=== PATIENT | male | born 1960 | race Caucasian/White ===

== ENCOUNTER → 2016-04-20 | Outpatient (CLI) | payer OTHER, BC ==
[~2016-04-20] MED LIST: CRFL PO; CYAN3INJ IM; DEXL60CA4 PO; FINA5TAB PO; FRRS300 PO; HYDR1TAB2 PO; LEVO100T PO; LISI-729 PO; LYR50 PO; MYCO500T4 PO; PREG100C PO; RANI300C PO; SILO8CAP PO
[2016-04-20 16:39] LABS: BASO % 0.4 %; BASO ABS # 0.03 K/uL (0-0.2); COMPLETE YES; EOS % 0.9 %; HEMATOCRIT 45.9 % (42-52); IG% 0.3 %; LYMPH % 13.1 %; LYMPH ABS # 0.91 K/uL (1.2-3.4); MEAN CELL VOLUME 86.3 fL (80-100); MEAN CORPUSCULAR HEMOGLOBIN 29.1 pg (25-34); MEAN CORPUSCULAR HGB CONC 33.8 g/dl (32-36); MEAN PLATELET VOLUME 10.3 fL (7.4-10.4); MONO % 18.7 %; NEUT % 66.6 %; PLATELET COUNT 212 K/uL (130-400); RED BLOOD COUNT 5.32 M/uL (4.7-6.1); WHITE BLOOD COUNT 6.95 K/uL (4.8-10.8)
[2016-04-20 16:51] LABS: ALT/SGPT 50 U/L (12-78); BLOOD UREA NITROGEN 12 mg/dl (7-18); BUN/CREATININE RATIO 9.2 (10-20); CALCIUM 8.7 mg/dl (8.5-10.1); CARBON DIOXIDE 24 mmol/L (21-32); CHLORIDE 102 mmol/L (98-107); CHOLESTEROL 178 mg/dl (0-200); GLUCOSE 91 mg/dl (70-99); POTASSIUM 3.8 mmol/L (3.5-5.1); SODIUM 138 mmol/L (136-145); TRIGLYCERIDES 111 mg/dl (0-150); VERY LOW DENSITY LIPOPROT CALC 22 mg/dl
[2016-04-20 17:02] LABS: % FREE PSA 14.5 %; ALB/GLOB RATIO 1.1 (0.9-2); ALKALINE PHOSPHATASE 107 U/L (45-117); AST/SGOT 35 U/L (15-37); CHOLESTEROL/HDL RATIO 3.6; FREE PSA 0.86 ng/ml; HDL CHOLESTEROL 49 mg/dl; LDL CHOLESTEROL CALCULATED 107 mg/dl; THYROID STIMULATING HORMONE 0.774 uIu/ml (0.300-4.500)
== END | disposition home or self-care (01) ==
LOC: C.LAB1850 15:23
PROVIDERS: ATTEND Internal Medicine Geriatric Medicine
DX: R97.20 Elevated prostate specific antigen [PSA] (principal); Z86.79 Personal history of other diseases of the circulatory system; M34.9 Systemic sclerosis, unspecified; K21.9 Gastro-esophageal reflux disease without esophagitis; I10 Essential (primary) hypertension; D64.9 Anemia, unspecified; K20.9 Esophagitis, unspecified; M60.9 Myositis, unspecified; E03.9 Hypothyroidism, unspecified

== ENCOUNTER → 2017-02-11 | Outpatient (CLI) | payer OTHER, BC ==
--- NOTE | 2017-02-11 16:06 | ECHOCARDIOGRAM REPORT ---
*NOTICE TO RECEIVING CONSTITUTION PARTY AGENCY This information is strictly Confidential and protected under [place] law. [place] law prohibits you from making any further disclosure of this information unless further disclosure is expressly permitted by the written consent of the person to whom it pertains or is authorized by law. A general authorization for the release of medical or other information is not sufficient for this purpose. Hospital accepts no responsibility if the information is made available to any other person, INCLUDING THE PATIENT. Interpretation Summary * Name: JULIA BILLINGSLEY Study Date: 02/11/2017 01:14 PM BP: 137/89 mmHg * Patient Location: [facility] HR: 77 * : 1960 (M/d/yyyy) Gender: Male Height: 74 in * Age: 56 yrs Ethnicity: CA Weight: 195 lb * Ordering Physician: JULI MARTIN MD * Performed By: Yanely Butts RCS * * Reason For Study: SOB * BSA: 2.1 m2 * -- Conclusions -- * 1. Normal left ventricular size and systolic function. EF 60-65%. No regional wall motion abnormalities. Severe left ventricular hypertrophy of the anteroseptal base. Otherwise, mild left ventricular hypertrophy. Tissue Doppler suggests elevated left atrial pressure. * 2. The left atrium is moderately dilated. * 3. The right atrium is mildly dilated. * 4. Bioprosthetic aortic valve with acceptable transvalvular gradients/velocities. Trace aortic transvalvular leak. * 5. There is mild mitral regurgitation. * 6. Mildly dilated ascending aorta. * 7. Normal estimated right ventricular systolic pressure; 24mmHg. * 8. Rhythm appears to be atrial flutter. * 9. Similar findings compared to prior study on 03/18/2011. Procedure Details * A complete two-dimensional transthoracic echocardiogram was performed (2D, M-mode, Doppler and color flow Doppler). Left Ventricle * Normal left ventricular size and systolic function. EF 60-65%. No regional wall motion abnormalities. Severe left ventricular hypertrophy of the anteroseptal base. Otherwise, mild left ventricular hypertrophy. Right Ventricle * The right ventricle is normal in size and function. Atria * The left atrium is moderately dilated. * The right atrium is mildly dilated. * There is no evidence of atrial septal defect, but resolution does not allow assessment for a patent foramen ovale. Mitral Valve * There is mild mitral annular calcification. * The mitral valve leaflets appear thickened, but open well. * There is no mitral valve stenosis. * There is mild mitral regurgitation. Tricuspid Valve * The tricuspid valve is not well visualized, but is grossly normal. * There is no tricuspid stenosis. * There is mild tricuspid regurgitation. Aortic Valve * Bioprosthetic aortic valve with acceptable transvalvular gradients/velocities. Trace aortic transvalvular leak. Pulmonic Valve * The pulmonic valve is not well seen, but is grossly normal. * There is no pulmonic valvular stenosis. * Mild pulmonic valvular regurgitation. Great Vessels * The aortic root is normal size. * Mildly dilated ascending aorta. * Aortic arch of normal dimension. Pericardium/Pleural * There is no pericardial effusion. Great Vessels * Normal inferior vena cava size and collapsability with sniff indicates a normal right atrial pressure of 3 mmHg MMode 2D Measurements and Calculations IVSd 2.0 cm IVSs 2.7 cm LVIDd 3.8 cm LVIDs 2.4 cm LVPWd 1.3 cm LVPWs 2.1 cm IVS/LVPW 1.5 FS 37.6 % EDV(Teich) 63.6 ml ESV(Teich) 20.1 ml EF(Teich) 68.4 % EDV(cubed) 56.7 ml ESV(cubed) 13.8 ml EF(cubed) 75.7 % % IVS thick 35.1 % % LVPW thick 61.1 % LV mass(C)d 256.1 grams LV mass(C)dI 119.1 grams/m\S\2 LV mass(C)s 298.6 grams LV mass(C)sI 138.9 grams/m\S\2 SV(Teich) 43.5 ml SI(Teich) 20.2 ml/m\S\2 SV(cubed) 42.9 ml SI(cubed) 20.0 ml/m\S\2 Ao root diam 3.9 cm Ao root area 11.7 cm\S\2 ACS 0.55 cm LA dimension 4.9 cm asc Aorta Diam 4.2 cm LA/Ao 1.3 LVOT diam 2.0 cm LVOT area 3.0 cm\S\2 LVAd ap4 37.6 cm\S\2 LVLd ap4 8.7 cm EDV(MOD-sp4) 133.3 ml EDV(sp4-el) 138.1 ml LVAs ap4 21.8 cm\S\2 LVLs ap4 7.9 cm ESV(MOD-sp4) 49.6 ml ESV(sp4-el) 51.0 ml EF(MOD-sp4) 62.8 % EF(sp4-el) 63.0 % LVAd ap2 33.6 cm\S\2 LVLd ap2 8.6 cm EDV(MOD-sp2) 108.5 ml EDV(sp2-el) 110.9 ml LVAs ap2 19.5 cm\S\2 LVLs ap2 8.1 cm ESV(MOD-sp2) 39.4 ml ESV(sp2-el) 39.8 ml EF(MOD-sp2) 63.6 % EF(sp2-el) 64.1 % LVLd %diff -0.52 % EDV(MOD-bp) 120.0 ml LVLs %diff 2.2 % ESV(MOD-bp) 44.7 ml EF(MOD-bp) 62.7 % SV(MOD-sp4) 83.7 ml SI(MOD-sp4) 38.9 ml/m\S\2 SV(MOD-sp2) 69.0 ml SI(MOD-sp2) 32.1 ml/m\S\2 SV(MOD-bp) 75.3 ml SI(MOD-bp) 35.0 ml/m\S\2 SV(sp4-el) 87.0 ml SI(sp4-el) 40.5 ml/m\S\2 SV(sp2-el) 71.1 ml SI(sp2-el) 33.1 ml/m\S\2 Doppler Measurements and Calculations MV E max yvette 92.9 cm/sec MV A max yvette 67.9 cm/sec MV E/A 1.4 MV dec time 0.21 sec Ao V2 max 233.8 cm/sec Ao max PG 21.9 mmHg Ao max PG (full) 17.9 mmHg Ao V2 mean 157.8 cm/sec Ao mean PG 11.4 mmHg Ao V2 VTI 50.4 cm TIM(V,A) 1.3 cm\S\2 TIM(V,D) 1.3 cm\S\2 LV V1 max PG 4.0 mmHg LV V1 max 99.5 cm/sec SV(Ao) 589.2 ml SI(Ao) 274.1 ml/m\S\2 PA V2 max 62.7 cm/sec PA max PG 1.6 mmHg PI end-d yvette 67.7 cm/sec TR max yvette 230.6 cm/sec RVSP(TR) 24.3 mmHg RAP systole 3.0 mmHg
--- NOTE | 2017-02-17 16:22 | PULMONARY FUNCTION TEST ---
CLINICAL DATA: A 56-year-old male, height 74 inches and weighs [address] Ortiz for evaluation of shortness of breath. 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 Spirometry pre-bronchodilator and DLCO were performed. FINDINGS: Pre-bronchodilator spirometry is within normal limits. FVC is 87% of predicted. FEV1 is 90% of predicted. [id number] was 118% of predicted. DLCO was normal at 100% of predicted. IMPRESSION: Normal spirometry and normal diffusion capacity (DLCO). MTDD
== END | disposition home or self-care (01) ==
LOC: C.CPL 12:32
PROVIDERS: ATTEND Internal Medicine
DX: M34.9 Systemic sclerosis, unspecified (principal)

== ENCOUNTER → 2017-06-24 | Outpatient (CLI) | payer OTHER, BC ==
[~2017-06-24] MED LIST changes: +GADAVIST IV PRN
--- NOTE | 2017-06-24 10:04 | DIAGNOSTIC IMAGING REPORT ---
PROSTATE MRI COMBO CLINICAL HISTORY: 57 years-old Male presenting with R97.20 Elevated prostate specific antigen (PSA)N40.1 BPH with obstruction. TECHNIQUE: Multisequence, multiplanar MR imaging of the prostate was performed before and after the administration of intravenous contrast. Additional postprocessing was performed on a separate [employer] workstation by the radiologist for 3-D volumetric segmentation of the prostate and contouring of region(s) of interest (ELISA) for targeting. IV contrast: 9 cc Gadavist. COMPARISON: None. FINDINGS: Prostate: The prostate measures 4.0 cm (DynaCAD prostate boundary segmentation volume 38.57 mL). Moderate changes of benign prostatic hyperplasia. Precontrast T1 weighted imaging demonstrates few punctate foci of increased T1 signal superiorly. This is consistent with small foci of calcification. No suspicious lesion is apparent in the transition or peripheral zones. Best seen on axial T2 image there is a hypointense area within the peripheral zone of the right mid gland. However, this is not demonstrate restricted diffusion. Therefore, this favors an area of scarring or inflammation. This area does not demonstrate significant enhancement. Seminal vesicles normal. Bladder: Normal. Bowel: Visualized portion of the rectum normal. Peritoneum: No free fluid in the pelvis. Lymph nodes: No lymphadenopathy in the visualized portion of the pelvis. Vasculature: Iliac vessels patent. Abdominal wall: Normal. Osseous structures: Normal bone marrow signal intensity. IMPRESSION: 1. No suspicious lesions within the prostate gland. 2. Benign prostatic hyperplasia. 3. T2 hypointense region within the peripheral zone of the right mid gland which does not demonstrate restricted diffusion or significant enhancement. Therefore, this favors an area of scarring. Electronically signed by: Bi Espinoza M.D. 06/24/2017 10:03 AM Dictated Date/Time: 06/24/2017 9:41 AM
== END | disposition home or self-care (01) ==
LOC: C.MRIBC 07:51
PROVIDERS: ATTEND Urology
DX: N40.1 Benign prostatic hyperplasia with lower urinary tract symptoms (principal); R97.20 Elevated prostate specific antigen [PSA]

== ENCOUNTER → 2017-06-28 | Outpatient (CLI) | payer OTHER, BC ==
[~2017-06-28] MED LIST changes: -GADAVIST IV PRN
[2017-06-28 13:20] LABS: BLOOD UREA NITROGEN 22 mg/dl (7-18); CALCIUM 9.1 mg/dl (8.5-10.1); CARBON DIOXIDE 26 mmol/L (21-32); CREATININE 1.24 mg/dl (0.60-1.40); GLUCOSE 96 mg/dl (70-99); POTASSIUM 3.8 mmol/L (3.5-5.1); SODIUM 140 mmol/L (136-145)
== END | disposition home or self-care (01) ==
LOC: C.LABPBG 09:55
PROVIDERS: ATTEND Urology
DX: I10 Essential (primary) hypertension (principal); D64.9 Anemia, unspecified; E03.9 Hypothyroidism, unspecified; M19.90 Unspecified osteoarthritis, unspecified site; K20.9 Esophagitis, unspecified; E55.9 Vitamin D deficiency, unspecified; N40.1 Benign prostatic hyperplasia with lower urinary tract symptoms; R97.20 Elevated prostate specific antigen [PSA]

== ENCOUNTER 2019-02-13 08:47 | Inpatient (IN) ==
--- NOTE | 2019-02-13 09:14 | Emergency Department Note ---
Entered by aRjwinder Steinberg acting as a scribe for Efrain Kothari DO History of Present Illness General Chief complaint: Cardiac Assessment Time Seen by Provider: 02/13/19 08:57 Source: patient History of Present Illness Onset (ago): hour(s) 6 Location: abdomen Pain Consistency: + constant Maximum Pain Intensity: 7 Quality: + other (generalized pain ) Associated symptoms: + nausea/vomiting and + other (+distended abdomen; - diarrhea ) Treatments prior to arrival: other (5 morphine, 4 Zofran, 4 aspirin ) The patient is a 58 year old male, with past medical history of diabetes, GERD, BPH, and hypertension, who presents to the Emergency Room with complaints of constant generalized abdominal pain upon waking up this morning at 0330. The patient reports he felt nauseous at this time as well and experienced 3-4 episodes of vomiting. The patient denies diarrhea, but he notes he feels as if he has diarrhea upcoming. The patient denies anyone being sick around him. He states he ate chicken nuggets last night around 1999 that were fresh from a restaurant. He notes multiple people ate the chicken nuggets, and he denies anyone else getting ill after eating the chicken nuggets. The patient states his abdomen is typically not as distended as it is currently. The patient denies prior abdominal surgeries. The RN notes the patient was given 5 morphine, 4 Zofran, and 4 aspirin EDGE [employer]ONDER. The patient notes the morphine did not help relieve symptoms, but he states the Zofran did help relieve the nausea. Home Medications Home Medications Medication Instructions Recorded Confirmed Type cyanocobalamin (vitamin B-12) 1,000 mcg IM MONTHLY 07/29/18 02/13/19 History ferrous sulfate 325 mg PO QAM 07/29/18 02/13/19 History finasteride 5 mg PO HS 07/29/18 02/13/19 History mycophenolate mofetil [CellCept] 1,000 mg PO HS 07/29/18 02/13/19 History mycophenolate mofetil [CellCept] 500 mg PO QAM 07/29/18 02/13/19 History pregabalin [Lyrica] 50 mg PO HS 07/29/18 02/13/19 History ranitidine HCl 300 mg PO BID 07/29/18 02/13/19 History silodosin [Rapaflo] 8 mg PO HS 07/29/18 02/13/19 History hydrocodone 5 mg-acetaminophen 325 1 tab PO DAILY PRN #30 tab 08/05/18 02/13/19 Rx mg tablet Dexilant 60 mg PO BID #60 cap 08/25/18 02/13/19 Rx cholecalciferol (vitamin D3) 50 2,000 unit PO QAM #90 cap 10/03/18 02/13/19 History mcg (2,000 unit) capsule lisinopril 5 mg tablet 5 mg PO QAM #90 tab 10/29/18 02/13/19 Rx pregabalin 100 mg capsule 100 mg PO BID #8 cap 11/01/18 02/13/19 Rx levothyroxine 100 mcg tablet 100 mcg PO QAM 02/05/19 02/13/19 History albuterol sulfate 2 puff INHALATION Q6H PRN 02/13/19 02/13/19 History Allergies Allergy/AdvReac Type Severity Reaction Status Date / Time azathioprine Allergy Intermediate "allergic" Verified 02/13/19 09:52 atropine Allergy Mild allergic-SKIN Verified 02/13/19 09:52 BREAKDOWN diphenoxylate Allergy Mild allergic Verified 02/13/19 09:52 amlodipine [From Lotrel] Allergy Unknown Rash Verified 02/13/19 09:52 benazepril [From Lotrel] Allergy Unknown Rash Verified 02/13/19 09:52 Past Med/Surg History Medical History Anemia (Acute) Atrial fibrillation No currently on AC due to GIB and Cabrales's esophagus. 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 EGD 09/13 with esphagitis but negative for intestinal metaplasia. Increase in symptoms, repeat EGD soon. Managed with PPI and H2 hanna. Followed by GI BPH with obstruction/lower urinary tract symptoms (Chronic) Managed with combination therapy alpha hanna and 5-alpha reductase inhibitor. Followed by urology. Chronic pain (Chronic) 2/2 back pain with 3 previous spinal operations. Managed with pregabalin + hydrocodone-acetaminophen 5-325mg q6h PRN for pain Elevated prostate specific antigen (PSA) (Chronic) Negative biopsies 2006 and 2012. Prostate MRI (06/16) negative. PSA monitored yearly by urology. Gastric ulcer (Acute) Gastroesophageal reflux disease (Chronic) Managed with PPI and H2 hanna. Followed by GI. Complicated with Cabrales's esophagus. Hiatal hernia (Acute) Small, present on EGD (09/13). Hypertension (Chronic) Long standing. Currently managed with lisinopril 5mg daily. 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 Previously evaluated at [facility]. Followed by cardiology. Family History Grandmother (Maternal) Family history of diabetes mellitus Mother Family hx of colon cancer Social History Preferred Language: Pashto Communication Ability: Effective Prover Required: No Beliefs That Will Affect Care: None Current Living Situation: Significant Other Feels Safe at Home: Yes Smoking Status: Never smoker Second Hand Exposure: No ; Hx Alcohol Use: Yes Alcohol type: beer, wine and hard liquor Hx Substance Use: No Review of Systems See HPI for pertinent positives & negatives. and A total of 10 systems reviewed and were otherwise negative Physical Exam Vital Signs Vital Signs - 24 hr 02/13/19 08:51 02/13/19 08:56 02/13/19 09:01 Temperature 36.7 C Temperature Source Oral Pulse Rate 75 82 80 Pulse Rate from SpO2 Sensor 77 Pulse Rhythm Regular Pulse Strength Normal Respiratory Rate 20 24 34 H Respiratory Effort / Characteristics Non-Labored Spontaneous Respiratory Depth Normal Respiratory Pattern Regular Blood Pressure 119/70 119/70 113/66 Blood Pressure Mean 86 77 77 Pulse Oximetry 94 91 Oxygen Delivery Method Room Air Sepsis Recent Fever Within 48 Hours No Sepsis New/Unexplained Change in Mental Status No Sepsis Action Taken by Nursing No Action Required 02/13/19 09:02 02/13/19 09:34 02/13/19 09:57 Temperature Temperature Source Pulse Rate 80 86 87 Pulse Rate from SpO2 Sensor 77 87 Pulse Rhythm Pulse Strength Respiratory Rate 20 17 29 H Respiratory Effort / Characteristics Respiratory Depth Respiratory Pattern Blood Pressure 113/69 Blood Pressure Mean 86 Pulse Oximetry 90 87 L Oxygen Delivery Method Sepsis Recent Fever Within 48 Hours Sepsis New/Unexplained Change in Mental Status Sepsis Action Taken by Nursing 02/13/19 10:00 02/13/19 10:01 02/13/19 10:30 Temperature Temperature Source Pulse Rate 89 87 86 Pulse Rate from SpO2 Sensor 84 87 87 Pulse Rhythm Pulse Strength Respiratory Rate 31 H 30 H 26 H Respiratory Effort / Characteristics Respiratory Depth Respiratory Pattern Blood Pressure 113/67 133/78 Blood Pressure Mean 73 90 Pulse Oximetry 89 L 90 93 Oxygen Delivery Method Sepsis Recent Fever Within 48 Hours Sepsis New/Unexplained Change in Mental Status Sepsis Action Taken by Nursing 02/13/19 10:31 Temperature Temperature Source Pulse Rate 87 Pulse Rate from SpO2 Sensor 87 Pulse Rhythm Pulse Strength Respiratory Rate 27 H Respiratory Effort / Characteristics Respiratory Depth Respiratory Pattern Blood Pressure Blood Pressure Mean Pulse Oximetry 93 Oxygen Delivery Method Sepsis Recent Fever Within 48 Hours Sepsis New/Unexplained Change in Mental Status Sepsis Action Taken by Nursing CONSTITUTIONAL/VITAL SIGNS: Reviewed / noted above. GENERAL: Non-toxic in appearance. INTEGUMENTARY: Warm, dry, and [place]. HEAD: Normocephalic. EYES: without scleral icterus or trauma. ENT/OROPHARYNX: clear and moist. LYMPHADENOPATHY/NECK: Is supple without lymphadenopathy or meningismus. RESPIRATORY: Lungs clear and equal. CARDIOVASCULAR: Regular rate and rhythm. GI/ABDOMEN: Abdomen is distended and diffusely tender, more on the left than the right. No organomegaly or pulsatile mass. No rebound or guarding. Normal bowel sounds. EXTREMITIES: Warm and well perfused. BACK: No CVA tenderness. NEUROLOGICAL: Intact without focal deficits. PSYCHIATRIC: normal affect. MUSCULOSKELETAL: Normally developed with good muscle tone. Course Course 900: Past medical records reviewed. The patient was evaluated in room A10. A complete history and physical exam was performed. 1120: I discussed the patient's lab imaging and findings with him. When asked about the findings of rib fractures via imaging, the patient reports he fell last week when was drunk, which he states could have cause the injuries. 1135: I reviewed the patient's [facility]. Dr. Sánchez will evaluate the patient for further management. Consultations Consultation #1: I reviewed the patient's case [facility]. Dr. Sánchez will evaluate the patient for further management. Time: 11:35 Administered Medications Hydromorphone HCl (Dilaudid) 1 mg IV Q15M PRN PRN Reason: Pain Stop: 02/27/19 09:07 Last Admin: 02/13/19 09:15 Dose: 1 mg Documented by: [id number] Discontinued Medications Sodium Chloride (Nss) 500 mls @ 999 mls/hr IV .Q31M JOE Stop: 02/13/19 09:45 Last Infusion: 02/13/19 10:54 Dose: 0 mls/hr Documented by: [id number] Admin: 02/13/19 09:15 Dose: 999 mls/hr Documented by: [id number] Medical Decision Making Differential Diagnosis Differential considered: pancreatitis, hepatitis, acute cholecystitis, AAA, UTI, pyelonephritis, kidney stones, appendicitis, diverticulitis, shingles, bowel obstruction, mesenteric ischemia, intussusception,hernia, testicular torsion. Medical Records Attestation: I reviewed the patient's medical records. Home Medications Current Medication List: was personally reviewed by me Laboratory Data Attestation: I reviewed the patient's lab results. Result diagrams: 02/13/19 09:15 02/13/19 09:15 Lab Results 02/13/19 02/13/19 02/13/19 Range/Units 09:15 09:15 09:15 WBC 13.75 H (4.8-10.8) K/uL RBC 5.11 (4.7-6.1) M/uL Hgb 14.9 (14.0-18.0) g/dL Hct 45.2 (42-52) % MCV 88.5 (80-100) fL MCH 29.2 (25-34) pg MCHC 33.0 (32-36) g/dL RDW Std Deviation 43.6 (36.4-46.3) fL RDW Coeff of Jalen 13.3 (11.5-14.5) % Plt Count 234 (130-400) K/uL MPV 9.8 (7.4-10.4) fL Immature Gran % (Auto) 0.2 % Neut % (Auto) 88.9 % Lymph % (Auto) 7.0 % Crawford % (Auto) 3.8 % Eos % (Auto) 0.0 % Baso % (Auto) 0.1 % Immature Gran # (Auto) 0.03 H (0.00-0.02) K/uL Neut # (Auto) 12.23 H (1.4-6.5) K/uL Lymph # (Auto) 0.96 L (1.2-3.4) K/uL Crawford # (Auto) 0.52 (0.11-0.59) K/uL Eos # (Auto) 0.00 (0-0.5) K/uL Baso # (Auto) 0.01 (0-0.2) K/uL PT 10.8 (9.0-12.0) Seconds INR 1.1 (0.9-1.1) Sodium 141 (136-145) mmol/L Potassium 3.1 L (3.5-5.1) mmol/L Chloride 112 H (98-107) mmol/L Carbon Dioxide 21 (21-32) mmol/L Anion Gap 8.0 (3-11) BUN 21 H (7-18) mg/dl Creatinine 1.44 H (0.6-1.4) mg/dl Est Cr Clr Drug Dosing 72.1 ml/min Est GFR ( Amer) 60.7 Est GFR (Non-Af Amer) 52.4 BUN/Creatinine Ratio 14.5 (10-20) Glucose 146 H (70-99) mg/dl Calcium 8.9 (8.5-10.1) mg/dl Total Bilirubin 0.8 (0.2-1) mg/dl AST 40 H (15-37) U/L ALT 50 (12-78) U/L Alkaline Phosphatase 160 H (45-117) U/L Troponin I < 0.015 (0-0.045) ng/ml Total Protein 7.2 (6.4-8.2) gm/dl Albumin 3.8 (3.4-5.0) gm/dl Globulin 3.4 (2.5-4.0) gm/dl Albumin/Globulin Ratio 1.1 (0.9-2) Lipase 189 (73-393) U/L Imaging Data Radiologist's Impression: Radiology results as stated below per my review and the radiologist's interpretation: CT OF THE ABDOMEN AND PELVIS WITHOUT CONTRAST CLINICAL HISTORY: Abdominal pain. Evaluate for obstruction or perforation. COMPARISON STUDY: CT of the abdomen and pelvis December 15, 2011. TECHNIQUE: Axial images of the abdomen and pelvis were obtained without IV contrast. Images were reviewed in the axial, sagittal, and coronal planes. Au tomated exposure control was utilized for the study. A dose lowering technique was utilized adhering to the principles of ALARA. FINDINGS: Imaged portions of the lower chest demonstrate a prosthetic aortic valve and moderate cardiomegaly. In addition, there are are acute appearing bilateral lower rib fractures. No pneumatosis, free air or portal venous gas is present. There is a gallstone within the gallbladder. The gallbladder is mildly distended without pericholecystic infiltration. A water attenuation left renal lesion was shown to represent a cyst on prior contrast enhanced exam. The a drenal glands, right kidney and liver as well as the pancreas are unremarkable. The small bowel is slightly distended and fluid-filled. The the right colon is fluid-filled and distended as well. There is mild infiltration adjacent to the splenic flexure of the colon and the descending colon. A moderate amount stool within the left colon is noted. Sensitivity for detection mucosal lesions is diminished on this exam given unenhanced CT technique. No well-defined transition point is identified. There is sigmoid diverticulosis without evidence for acute diverticulitis. There is no lymphadenopathy. The prostate is mildly enlarged. Postoperative findings within the spine are noted. IMPRESSION: 1. Moderate colonic and mild small bowel dilatation. Left colon pericolonic infiltration. No transition point. The findings are nonspecific and may reflect an enterocolitis with ileus. However, a partial colonic obstruction could appear similar. The findings may be related to a moderate amount of stool within the sigmoid colon and descending colon. An occult colonic neoplasm cannot be excluded and therefore a nonemergent colonoscopy is recommended. 2. Multiple acute appearing nondisplaced bilateral rib fractures. 3. Cholelithiasis. Electronically signed by: Nirmal Watkins M.D. 02/13/2019 9:53 AM XR chest 1V portable HISTORY: 58 years-old Male abd pain acute generalized abdominal pain with acute left-sided rib pain COMPARISON: Chest radiograph 08/01/2012 TECHNIQUE: Portable AP view of the chest FINDINGS: Cardiac silhouette is enlarged, unchanged. Prior median sternotomy with cardiac valvular prosthesis. Pulmonary vascular congestion with mild interstitial coarsening. Mild blunting of the costophrenic angles. No pneumothorax or large pleural effusion. Mild left greater than right bibasilar opacities. Degenerative changes of the shoulders and spine. Acute appearing mildly displaced fracture of the lateral left seventh rib with possible additional acute nondisplaced fracture of the lateral left sixth rib. IMPRESSION: 1. Cardiomegaly with suggestion of mild pulmonary edema. 2. Left greater than right bibasilar opacities suggest atelectasis. 3. Acute mildly displaced fracture of the lateral left seventh rib with equivocal acute nondisplaced fracture of the lateral left sixth rib. The above report was generated using voice recognition software. It may contain grammatical, syntax or spelling errors. Electronically signed by: Oni Henson M.D. 02/13/2019 9:26 AM ECG Data Attestation: I personally reviewed and interpreted this ECG as follows: Indication: + abdominal pain Rate (beats per minute): 80 Rhythm: + atrial fibrillation ECG Intervals/blocks: + Left anterior fascicular block and + Right Bundle branch block ECG Findings: + PVCs Comparison ECG Date: from (08/25/18) Change: no significant change Blood Pressure Blood Pressure Findings: Elevated blood pressure Blood Pressure Disposition: further management by hospitalist AIDE Narayanan This is a 58-year-old male who presents to the ED with a chief complaint of abdominal pain. The patient states that his symptoms started this 3 AM this morning with nausea and vomiting. He also states that he has diffuse abdominal pain. He feels like he might have to move his bowels but cannot. The patient states that he last ate around 9 PM. He had some chicken nuggets. His girlfriend had the same but is not sick but did feel a little uneasy. The patient was transported here by EMS and provided 5 mg of IV morphine. He also was given 4 mg IV Zofran and some aspirin. A twelve-lead EKG shows atrial fibrillation with a heart rate around 80. There is a PVC. There is also a right bundle branch block and left anterior fascicular block. This looks similar to a previous EKG. the patient's exam reveals some abdominal distention as well as exquisite tenderness to palpation primarily in the left upper and left lower quadrants. The patient's blood work revealed an elevated white blood cell count of 13.7. His potassium was 3.1. BUN was 21. Glucose was 146. Troponin was negative, lipase was negative. CT scan of the abdomen pelvis reveals enterocolitis, ileus and bowel distention. This could be indicative of a mass or possibly related to the patient's constipation. There is also noted to be bilateral lower rib fractures. The patient did admit to falling a couple of weeks ago and hurting himself. He was not evaluated for this. He has been taking Tylenol at home as well as some hydrocodone. The patient was told the results of the test. Impression & Plan Ileus, Abdominal pain, Fracture of multiple ribs of both sides, Enterocolitis Discharge Plan Visit Data Chief Complaint: Cardiac Assessment ED Provider: Efrain Kothari Discharge Problem: Ileus, Abdominal pain, Fracture of multiple ribs of both sides, Enterocolitis Patient Disposition: Being Evaluated by Hospitalist Forms Stand Alone Forms: My [facility] Prescriptions Prescriptions: No Action lisinopril 5 mg tablet 5 mg PO QAM Qty: 90 RF: 3 Lyrica 100 mg capsule 100 mg PO BID Qty: 8 RF: 0 hydrocodone-acetaminophen 5-325 mg tablet 1 tab PO DAILY PRN (Reason: pain) Qty: 30 RF: 0 cholecalciferol (vitamin D3) 2,000 unit capsule 2,000 unit PO QAM Qty: 90 RF: 0 levothyroxine 100 mcg tablet 100 mcg PO QAM RF: 0 albuterol sulfate 90 mcg/actuation HFA aerosol inhaler 2 puff inhalation Q6H PRN (Reason: Shortness Of Breath) RF: 0 ferrous sulfate 325 mg (65 mg iron) Tablet,Delayed Release (Dr/Ec) 325 mg PO QAM RF: 0 cyanocobalamin (vitamin B-12) 1,000 mcg/mL Kit 1,000 mcg IM MONTHLY RF: 0 mycophenolate mofetil [CellCept] 250 mg Capsule 500 mg PO QAM RF: 0 mycophenolate mofetil [CellCept] 250 mg Capsule 1,000 mg PO HS RF: 0 finasteride 5 mg Tablet 5 mg PO HS RF: 0 ranitidine HCl 300 mg Capsule 300 mg PO BID RF: 0 pregabalin [Lyrica] 50 mg Capsule 50 mg PO HS RF: 0 silodosin [Rapaflo] 8 mg Capsule 8 mg PO HS RF: 0 Dexilant 60 mg capsule,biphase delayed releas 60 mg PO BID Qty: 60 RF: 5 Referrals Referrals: Shaka Garcia MD [Primary Care Provider] - Discharge Problem: Abdominal pain Qualifiers: Abdominal location: unspecified location Qualified Code(s): R10.9 - Unspecified abdominal pain Fracture of multiple ribs of both sides Qualifiers: Encounter type: initial encounter Fracture type: closed Qualified Code(s): S22.43XA - Multiple fractures of ribs, bilateral, initial encounter for closed fracture The scribe's documentation has been prepared under my direction and personally reviewed by me in its entirety. I confirm that the note above accurately reflects all work, treatment, procedures, and medical decision making performed by me.
[2019-02-13] MEDS ORDERED: SODIUM CHLORIDE 0.9% 500 ML IV SCH (09:15)
[2019-02-13] MEDS: HYDROmorphone INJ 1 MG/ML SYRINGE IV PRN ×2 (09:15→12:39)
[2019-02-13 09:27] LABS: Basophils # (auto) 0.01 K/uL (0-0.2); Basophils % (auto) 0.1 %; Hematocrit (blood only) 45.2 % (42-52); Hemoglobin 14.9 g/dL (14.0-18.0); Immature Granulocytes # (auto) 0.03 K/uL (0.00-0.02); Immature Granulocytes % (auto) 0.2 %; Lymphocytes # (auto) 0.96 K/uL (1.2-3.4); Mean Corpuscular Hemoglobin 29.2 pg (25-34); Mean Corpuscular Volume 88.5 fL (80-100); Mean Platelet Volume 9.8 fL (7.4-10.4); Monocytes # (auto) 0.52 K/uL (0.11-0.59); Monocytes % (auto) 3.8 %; Neutrophils # (auto) 12.23 K/uL (1.4-6.5); Neutrophils % (auto) 88.9 %; Platelet Count 234 K/uL (130-400); RDW Coefficient of Variation 13.3 % (11.5-14.5); RDW Standard Deviation 43.6 fL (36.4-46.3); Red Blood Count 5.11 M/uL (4.7-6.1); White Blood Count 13.75 K/uL (4.8-10.8)
--- NOTE | 2019-02-13 09:28 | XRay Report ---
XR chest 1V portable HISTORY: 58 years-old Male abd pain acute generalized abdominal pain with acute left-sided rib pain COMPARISON: Chest radiograph 08/01/2012 TECHNIQUE: Portable AP view of the chest FINDINGS: Cardiac silhouette is enlarged, unchanged. Prior median sternotomy with cardiac valvular prosthesis. Pulmonary vascular congestion with mild interstitial coarsening. Mild blunting of the costophrenic an gles. No pneumothorax or large pleural effusion. Mild left greater than right bibasilar opacities. De generative changes of the shoulders and spine. Acute appearing mildly displaced fracture of the later al left seventh rib with possible additional acute nondisplaced fracture of the lateral left sixth ri b. IMPRESSION: 1. Cardiomegaly with suggestion of mild pulmonary edema. 2. Left greater than right bibasilar opacities suggest atelectasis. 3. Acute mildly displaced fracture of the lateral left seventh rib with equivocal acute nondisplaced fracture of the lateral left sixth rib. The above report was generated using voice recognition software. It may contain grammatical, syntax o r spelling errors. Electronically signed by: Oni Henson M.D. 02/13/2019 9:26 AM
[2019-02-13 09:39] LABS: INR 1.1 (0.9-1.1); Prothrombin Time 10.8 Seconds (9.0-12.0)
[2019-02-13 09:45] LABS: Blood Urea Nitrogen 21 mg/dl (7-18); Carbon Dioxide 21 mmol/L (21-32); Chloride 112 mmol/L (98-107); Est GFR (African American) 60.7; Potassium 3.1 mmol/L (3.5-5.1); Sodium 141 mmol/L (136-145)
[2019-02-13 09:46] LABS: Alanine Aminotransferase 50 U/L (12-78); Albumin Level 3.8 gm/dl (3.4-5.0); Aspartate Aminotransferase 40 U/L (15-37); BUN Creatinine Ratio 14.5 (10-20); Calcium 8.9 mg/dl (8.5-10.1); Creatinine Clr Calc Pharmacy 72.1 ml/min; Est GFR (Non-African American) 52.4; Glucose 146 mg/dl (70-99); Lipase 189 U/L (73-393)
[2019-02-13 09:50] LABS: Albumin Globulin Ratio 1.1 (0.9-2); Alkaline Phosphatase 160 U/L (45-117); Bilirubin,Total 0.8 mg/dl (0.2-1); Globulin 3.4 gm/dl (2.5-4.0); Total Protein 7.2 gm/dl (6.4-8.2); Troponin I < 0.015 ng/ml (0-0.045)
--- NOTE | 2019-02-13 09:54 | CT Scan Report ---
CT OF THE ABDOMEN AND PELVIS WITHOUT CONTRAST CLINICAL HISTORY: Abdominal pain. Evaluate for obstruction or perforation. COMPARISON STUDY: CT of the abdomen and pelvis December 15, 2011. TECHNIQUE: Axial images of the abdomen and pelvis were obtained without IV contrast. Images were revi ewed in the axial, sagittal, and coronal planes. Automated exposure control was utilized for the jyoti dy. A dose lowering technique was utilized adhering to the principles of ALARA. FINDINGS: Imaged portions of the lower chest demonstrate a prosthetic aortic valve and moderate cardi omegaly. In addition, there are are acute appearing bilateral lower rib fractures. No pneumatosis, fr ee air or portal venous gas is present. There is a gallstone within the gallbladder. The gallbladder is mildly distended without pericholecystic infiltration. A water attenuation left renal lesion was s hown to represent a cyst on prior contrast enhanced exam. The adrenal glands, right kidney and liver as well as the pancreas are unremarkable. The small bowel is slightly distended and fluid-filled. The the right colon is fluid-filled and distended as well. There is mild infiltration adjacent to the sp lenic flexure of the colon and the descending colon. A moderate amount stool within the left colon is noted. Sensitivity for detection mucosal lesions is diminished on this exam given unenhanced technician chemical cleaning nique. No well-defined transition point is identified. There is sigmoid diverticulosis without eviden ce for acute diverticulitis. There is no lymphadenopathy. The prostate is mildly enlarged. Postoperat khai findings within the spine are noted. IMPRESSION: 1. Moderate colonic and mild small bowel dilatation. Left colon pericolonic infiltration. No transiti on point. The findings are nonspecific and may reflect an enterocolitis with ileus. However, a partia l colonic obstruction could appear similar. The findings may be related to a moderate amount of stool within the sigmoid colon and descending colon. An occult colonic neoplasm cannot be excluded and the refore a nonemergent colonoscopy is recommended. 2. Multiple acute appearing nondisplaced bilateral rib fractures. 3. Cholelithiasis. Electronically signed by: Nirmal Watkins M.D. 02/13/2019 9:53 AM
[2019-02-13 11:40] LABS: Appearance Urine Clear (Clear); Bacteria Urine Automated Negative (Negative); Blood Urine Negative (Negative); Color Urine Orange; Glucose Urine UA Negative (Negative); Ketones Urine Negative (Negative); Leukocyte Esterase Urine 1+ (Negative); Nitrite Urine Positive (Negative); Protein Urine Trace (Negative); Specific Gravity Urine 1.021 (1.000-1.030); Urobilinogen Urine Negative (Negative)
[2019-02-13 11:49] LABS: Bilirubin Urine Negative (Negative); Ictotest Urine Negative (Negative)
[2019-02-13 12:04] LABS: Amorphous Sediment Urine Present (None Prsent); Calcium Oxalate Crystals Urine Present (None Prsent); RBC Urine Automated 0-4 /hpf (0-4)
[2019-02-13] MEDS ORDERED: KETOROLAC TROMETHAMINE 15 MG/ML VIAL IV PRN (12:11)
[2019-02-13] MEDS ORDERED: ONDANSETRON INJ 2 MG/ML 2 ML VIAL IV PRN (12:11)
[2019-02-13] MEDS ORDERED: POTASSIUM CHLORIDE / WTR 10 MEQ/100 ML PLCT IV ONE (12:27)
--- NOTE | 2019-02-13 12:52 | History & Physical Report ---
Date of Service February 13, 2019 Assessment & Plan (1) Ileus: Admit tele NPO except meds IVF pain and nausea control I offered NGT to patient, but he is not actively vomiting at this time and would like to hold off for now. Ileus may be secondary to pain from rib fractures and use of hydrocodone Surgery consult (2) Paroxysmal atrial fibrillation: No anticoagulation due to Cabrales's and previous GI bleed rate controlled. (3) Diffuse cutaneous systemic sclerosis: Continue Cellcept if able to take orals. (4) GERD (gastroesophageal reflux disease): Continue Dexilant ranitidine is on back order. (5) Left rib fracture: Pain control Patient uses Lyrica and hydrocodone for chronic low back pain. (6) Hypokalemia due to excessive gastrointestinal loss of potassium: Replaced will recheck in am. (7) BPH with obstruction/lower urinary tract symptoms: Continue finasteride and silodosin (8) Hypothyroidism: Continue levothyroxine (9) Hypertension: Continue lisinopril History of Present Illness 58 y/o male presented to the ED with a constant generalized abdominal pain noted upon waking this am. This is associated with nausea and vomiting x4. No diarrhea or hematemesis. He feels his abdomen is distended. No history of abdominal surgery. On a separate issue, he had a fall 3 days prior striking his left lower rib cage which is causing pain. He has been using hydrocodone at home for the pain. No chest pain, SOB, cough, F/C, headache or flu-like symptoms. Primary Care Provider: Shaka Garcia MD Allergies Allergy/AdvReac Type Severity Reaction Status Date / Time azathioprine Allergy Intermediate "allergic" Verified 02/13/19 09:52 atropine Allergy Mild allergic-SKIN Verified 02/13/19 09:52 BREAKDOWN diphenoxylate Allergy Mild allergic Verified 02/13/19 09:52 amlodipine [From Lotrel] Allergy Unknown Rash Verified 02/13/19 09:52 benazepril [From Lotrel] Allergy Unknown Rash Verified 02/13/19 09:52 Home Medications Home Medications Medication Instructions Recorded Confirmed Type cyanocobalamin (vitamin B-12) 1,000 mcg IM MONTHLY 07/29/18 02/13/19 History ferrous sulfate 325 mg PO QAM 07/29/18 02/13/19 History finasteride 5 mg PO HS 07/29/18 02/13/19 History mycophenolate mofetil [CellCept] 1,000 mg PO HS 07/29/18 02/13/19 History mycophenolate mofetil [CellCept] 500 mg PO QAM 07/29/18 02/13/19 History pregabalin [Lyrica] 50 mg PO HS 07/29/18 02/13/19 History ranitidine HCl 300 mg PO BID 07/29/18 02/13/19 History silodosin [Rapaflo] 8 mg PO HS 07/29/18 02/13/19 History hydrocodone 5 mg-acetaminophen 325 1 tab PO DAILY PRN #30 tab 08/05/18 02/13/19 Rx mg tablet Dexilant 60 mg PO BID #60 cap 08/25/18 02/13/19 Rx cholecalciferol (vitamin D3) 50 2,000 unit PO QAM #90 cap 10/03/18 02/13/19 History mcg (2,000 unit) capsule lisinopril 5 mg tablet 5 mg PO QAM #90 tab 10/29/18 02/13/19 Rx pregabalin 100 mg capsule 100 mg PO BID #8 cap 11/01/18 02/13/19 Rx levothyroxine 100 mcg tablet 100 mcg PO QAM 02/05/19 02/13/19 History albuterol sulfate 2 puff INHALATION Q6H PRN 02/13/19 02/13/19 History Past Med/Surg History Medical History Anemia (Acute) Atrial fibrillation No currently on AC due to GIB and Cabrales's esophagus. 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 EGD 09/13 with esphagitis but negative for intestinal metaplasia. Increase in symptoms, repeat EGD soon. Managed with PPI and H2 hanna. Followed by GI BPH with obstruction/lower urinary tract symptoms (Chronic) Managed with combination therapy alpha hanna and 5-alpha reductase inhi bitor. Followed by urology. Chronic pain (Chronic) 2/2 back pain with 3 previous spinal operations. Managed with pregabalin + hydrocodone-acetaminophen 5-325mg q6h PRN for pain Elevated prostate specific antigen (PSA) (Chronic) Negative biopsies 2006 and 2012. Prostate MRI (06/16) negative. PSA monitored yearly by urology. Gastric ulcer (Acute) Gastroesophageal reflux disease (Chronic) Managed with PPI and H2 hanna. Followed by GI. Complicated with Cabrales's esophagus. Hiatal hernia (Acute) Small, present on EGD (09/13). Hypertension (Chronic) Long standing. Currently managed with lisinopril 5mg daily. 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 Previously evaluated at [facility]. Followed by cardiology. Family History Grandmother (Maternal) Family history of diabetes mellitus Mother Family hx of colon cancer Social History Preferred Language: Kosovan Communication Ability: Effective It Security Administrator Required: No Beliefs That Will Affect Care: None Current Living Situation: Significant Other Feels Safe at Home: Yes Smoking Status: Never smoker Second Hand Exposure: No ; Hx Alcohol Use: Yes Alcohol type: beer, wine and hard liquor Hx Substance Use: No Review of Systems Review of Systems: Constitutional- no fever; no weight loss Eyes- no acute visual changes ENT- no sinus drainage; no pharyngitis Pulmonary- no cough, no wheezing, no shortness of breath Cardiac- no chest pain, no palpitations, no orthopnea, no dependent edema GI- As in HPI - no dysuria, no gross hematuria Musculoskeletal- no arthralgias, no myalgias Derm- no rashes, no new skin lesions. Hematologic- no unusual bruising, no unusual bleeding Lymphatics- no adenopathy Endocrine- no polyuria or polydipsia; no heat or cold intolerance Neuro- no headaches, no focal neurologic symptoms Psych- no anxiety, no depression Physical Exam Physical Exam: General- adult male, in mild distress due to abdominal pain Head- atraumatic Eyes- PERRL, EOMI, anicteric ENT- oropharynx clear Neck- supple, no JVD, no adenopathy, no thyromegaly. Lungs- CTA b/l no r/r/w. tenderness with palpation over lateral ribs Left 6 and 7 Heart- irreg rhythm; no murmur, no gallop, no rub appreciated Abdomen- distended, decreased bowel sounds, + diffuse tenderness L>R, No rebound or guarding. 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 Skin- warm & dry Results & Data Vital Signs (Past 12 Hours) Vital Signs Temp Pulse Pulse Resp BP BP Pulse Ox 02/13/19 12:09 88 20 134/82 93 02/13/19 10:31 87 27 H 93 02/13/19 10:30 86 26 H 133/78 93 02/13/19 10:01 87 30 H 90 02/13/19 10:00 89 31 H 113/67 89 L 02/13/19 09:57 87 29 H 113/69 87 L 02/13/19 09:34 86 17 02/13/19 09:02 80 20 90 02/13/19 09:01 80 34 H 113/66 91 02/13/19 08:56 82 24 119/70 02/13/19 08:51 36.7 C 75 20 119/70 94 Laboratory Results Laboratory Results WBC 13.75 K/uL (4.8-10.8) H 02/13/19 09:15 RBC 5.11 M/uL (4.7-6.1) 02/13/19 09:15 Hgb 14.9 g/dL (14.0-18.0) 02/13/19 09:15 Hct 45.2 % (42-52) 02/13/19 09:15 MCV 88.5 fL (80-100) 02/13/19 09:15 MCH 29.2 pg (25-34) 02/13/19 09:15 MCHC 33.0 g/dL (32-36) 02/13/19 09:15 RDW Std Deviation 43.6 fL (36.4-46.3) 02/13/19 09:15 RDW Coeff of Jalen 13.3 % (11.5-14.5) 02/13/19 09:15 Plt Count 234 K/uL (130-400) 02/13/19 09:15 MPV 9.8 fL (7.4-10.4) 02/13/19 09:15 Immature Gran % (Auto) 0.2 % 02/13/19 09:15 Neut % (Auto) 88.9 % 02/13/19 09:15 Lymph % (Auto) 7.0 % 02/13/19 09:15 Pike % (Auto) 3.8 % 02/13/19 09:15 Eos % (Auto) 0.0 % 02/13/19 09:15 Baso % (Auto) 0.1 % 02/13/19 09:15 Immature Gran # (Auto) 0.03 K/uL (0.00-0.02) H 02/13/19 09:15 Neut # (Auto) 12.23 K/uL (1.4-6.5) H 02/13/19 09:15 Lymph # (Auto) 0.96 K/uL (1.2-3.4) L 02/13/19 09:15 Pike # (Auto) 0.52 K/uL (0.11-0.59) 02/13/19 09:15 Eos # (Auto) 0.00 K/uL (0-0.5) 02/13/19 09:15 Baso # (Auto) 0.01 K/uL (0-0.2) 02/13/19 09:15 PT 10.8 Seconds (9.0-12.0) 02/13/19 09:15 INR 1.1 (0.9-1.1) 02/13/19 09:15 Sodium 141 mmol/L (136-145) 02/13/19 09:15 Potassium 3.1 mmol/L (3.5-5.1) L 02/13/19 09:15 Chloride 112 mmol/L (98-107) H 02/13/19 09:15 Carbon Dioxide 21 mmol/L (21-32) 02/13/19 09:15 Anion Gap 8.0 (3-11) 02/13/19 09:15 BUN 21 mg/dl (7-18) H 02/13/19 09:15 Creatinine 1.44 mg/dl (0.6-1.4) H 02/13/19 09:15 Est Cr Clr Drug Dosing 72.1 ml/min 02/13/19 09:15 Est GFR ( Amer) 60.7 02/13/19 09:15 Est GFR (Non-Af Amer) 52.4 02/13/19 09:15 BUN/Creatinine Ratio 14.5 (10-20) 02/13/19 09:15 Glucose 146 mg/dl (70-99) H 02/13/19 09:15 Calcium 8.9 mg/dl (8.5-10.1) 02/13/19 09:15 Total Bilirubin 0.8 mg/dl (0.2-1) 02/13/19 09:15 AST 40 U/L (15-37) H 02/13/19 09:15 ALT 50 U/L (12-78) 02/13/19 09:15 Alkaline Phosphatase 160 U/L (45-117) H 02/13/19 09:15 Troponin I < 0.015 ng/ml (0-0.045) 02/13/19 09:15 Total Protein 7.2 gm/dl (6.4-8.2) 02/13/19 09:15 Albumin 3.8 gm/dl (3.4-5.0) 02/13/19 09:15 Globulin 3.4 gm/dl (2.5-4.0) 02/13/19 09:15 Albumin/Globulin Ratio 1.1 (0.9-2) 02/13/19 09:15 Lipase 189 U/L (73-393) 02/13/19 09:15 Urine Color [place] 02/13/19 11:10 Urine Appearance Clear (Clear) 02/13/19 11:10 Urine pH 5.0 (4.5-7.5) 02/13/19 11:10 Ur Specific [place] 1.021 (1.000-1.030) 02/13/19 11:10 Urine Protein Trace (Negative) H 02/13/19 11:10 Urine Glucose (UA) Negative (Negative) 02/13/19 11:10 Urine Ketones Negative (Negative) 02/13/19 11:10 Urine Blood Negative (Negative) 02/13/19 11:10 Urine Nitrite Positive (Negative) A 02/13/19 11:10 Urine Bilirubin Negative (Negative) 02/13/19 11:10 Urine Urobilinogen Negative (Negative) 02/13/19 11:10 Ur Leukocyte Esterase 1+ (Negative) H 02/13/19 11:10 Urine WBC (Auto) 1-5 /hpf (0-5) 02/13/19 11:10 Urine RBC (Auto) 0-4 /hpf (0-4) 02/13/19 11:10 U Hyaline Cast (Auto) 5-10 /lpf (0-5) H 02/13/19 11:10 U Epithel Cells (Auto) 10-20 /lpf (0-5) H 02/13/19 11:10 Urine Bacteria (Auto) Negative (Negative) 02/13/19 11:10 Urine Crystals Not Reportable 02/13/19 11:10 Calcium Oxalate Crystal Present (None Prsent) A 02/13/19 11:10 Amorphous Sediment Present (None Prsent) A 02/13/19 11:10 Granular Casts 5-10 /lpf (0) H 02/13/19 11:10 Diagnostic Findings [place], [place] [phone] CT Scan Report Patient: JULIA BILLINGSLEY Date: 02/13/19 MR#: [id number]: [id number] Cynthia Acct ID:[id number]: Date: 1960[facility] Zip: [place] [address] Age: 58Location: ED Sex: M Room/Bed: Att Phy:Diagnosis: ABD PAIN Caitlyn Phy: Shaka Garcia MDService Date: 02/13/19 Fam Phy: Shaka Garcia MDInterpreting Phy: Nirmal Watkins MD Admit Phy: Ordering Phy: Efrain Kothari D.O. cc: ~ CT OF THE ABDOMEN AND PELVIS WITHOUT CONTRAST CLINICAL HISTORY: Abdominal pain. Evaluate for obstruction or perforation. COMPARISON STUDY: CT of the abdomen and pelvis December 15, 2011. TECHNIQUE: Axial images of the abdomen and pelvis were obtained without IV contrast. Images were reviewed in the axial, sagittal, and coronal planes. Automated exposure control was utilized for the study. A dose lowering technique was utilized adhering to the principles of ALARA. FINDINGS: Imaged portions of the lower chest demonstrate a prosthetic aortic valve and moderate cardiomegaly. In addition, there are are acute appearing bilateral lower rib fractures. No pneumatosis, free air or portal venous gas is present. There is a gallstone within the gallbladder. The gallbladder is mildly distended without pericholecystic infiltration. A water attenuation left renal lesion was shown to represent a cyst on prior contrast enhanced exam. The adrenal glands, right kidney and liver as well as the pancreas are unremarkable. The small bowel is slightly distended and fluid-filled. The the right colon is fluid-filled and distended as well. There is mild infiltration adjacent to the splenic flexure of the colon and the descending colon. A moderate amount stool within the left colon is noted. Sensitivity for detection mucosal lesions is diminished on this exam given unenhanced CT technique. No well-defined transition point is identified. There is sigmoid diverticulosis without evidence for acute diverticulitis. There is no lymphadenopathy. The prostate is mildly enlarged. Postoperative findings within the spine are noted. IMPRESSION: 1. Moderate colonic and mild small bowel dilatation. Left colon pericolonic infiltration. No transition point. The findings are nonspecific and may reflect an enterocolitis with ileus. However, a partial colonic obstruction could appear similar. The findings may be related to a moderate amount of stool within the sigmoid colon and descending colon. An occult colonic neoplasm cannot be excluded and therefore a nonemergent colonoscopy is recommended. 2. Multiple acute appearing nondisplaced bilateral rib fractures. 3. Cholelithiasis. Electronically signed by: Nirmal Watkins M.D. 02/13/2019 9:53 AM Dictated: 02/13/19 0935 Transcribed: 02/13/19 0935 [place], [place] [phone] XRay Report Patient: JULIA BILLINGSLEY Date: 02/13/19 MR#: [id number]: [id number] Acct ID:[id number]: Date: 1960[facility] Zip: [place] [address] Age: 58Location: ED Sex: M Room/Bed: Att Phy:Diagnosis: ABD PAIN Caitlyn Phy: Shaka Garcia MDService Date: 02/13/19 Fam Phy: Shaka Garcia MDInterpreting Phy: Gilles Henson Admit Phy: Ordering Phy: Efrain Kothari D.O. cc: ~ XR chest 1V portable HISTORY: 58 years-old Male abd pain acute generalized abdominal pain with acute left-sided rib pain COMPARISON: Chest radiograph 08/01/2012 TECHNIQUE: Portable AP view of the chest FINDINGS: Cardiac silhouette is enlarged, unchanged. Prior median sternotomy with cardiac valvular prosthesis. Pulmonary vascular congestion with mild interstitial coarsening. Mild blunting of the costophrenic angles. No pneumothorax or large pleural effusion. Mild left greater than right bibasilar opacities. Degenerative changes of the shoulders and spine. Acute appearing mildly displaced fracture of the lateral left seventh rib with possible additional acute nondisplaced fracture of the lateral left sixth rib. IMPRESSION: 1. Cardiomegaly with suggestion of mild pulmonary edema. 2. Left greater than right bibasilar opacities suggest atelectasis. 3. Acute mildly displaced fracture of the lateral left seventh rib with equivocal acute nondisplaced fracture of the lateral left sixth rib. Code Status & VTE Plan VTE Prophylaxis Plan VTE Prophylaxis will be ordered: Yes PG Care Time/CCT Total # of Minutes Spent Total Time Spent: 55 Total Time Spent with Patient: Total time spent is greater than 50% in coordination of care (as documented) at patient's floor/unit and/or counseling patient:
[2019-02-13] MEDS ORDERED: ENOXAPARIN INJ 40 MG/0.4 ML SYR SQ SCH (13:02)
[2019-02-13] MEDS ORDERED: ALBUTEROL 0.083% NEBU SOLN 3 ML VIAL NEB PRN (13:02)
[2019-02-13] MEDS ORDERED: HYDROmorphone INJ 0.5 MG/0.5 ML SYR IV PRN (13:02)
[2019-02-13] MEDS: SILODOSIN 8 MG SCH ×2 (14:18→16:02)
[2019-02-13] MEDS: HYDROmorphone INJ 0.5 MG/0.5 ML SYR IV PRN ×3 (14:20→21:29)
--- NOTE | 2019-02-13 15:06 | Surgery Consultation ---
Date of Consultation February 13, 2019 Assessment & Plan (1) Ileus: This is a 58y M who presents to the [facility] ED on 02/13 with abdominal pain, nausea, and vomiting. CT scan report shows moderate colonic and mild small bowel dilatation, no transition point. Has moderate amount of stool within sigmoid colon and descending colon as well as an occult colonic neoplasm cannot be excluded. Patient has no history of abdominal surgeries and although he says he only takes them intermittently is prescribed narcotics for at home. At this time would recommend conservative management and keep patient NPO with IVF until return of bowel function. If he continues to have ongoing emesis, may need an NG T. Would appreciate a GI consultation if further workup is indicated to rule out colonic neoplasm and for constipation management. We will continue to follow. Dr. Ford did examine the patient in his room he does have abdominal discomfort. He has had minimal GI activity Although he does have some bowel sounds. The nurse is going to give him a suppository and I also encouraged him to walk in the hallway. We will check a KUB in the morning if there is minimal improvement we may consider NG tube and I will discuss with the GI team other possible treatments. We will certainly try to avoid narcotics History of Present Illness Attending Physician: Haroon Sánchez, History of Present Illness This is a 58y M with a PMH of scleroderma, afib, history of aortic valve replacement who presents to the [facility] on 02/13 with complaints of abdominal pain and bloating over the past few days. Patient is a poor historian on my interview as he intermittently falls asleep, therefore history obtained by both patient and his sister. Patient reports waking up this AM with emesis x10, which ultimately prompted him to be evaluated in the ED. Patient last ate chicken nuggets and a slice of pizza at a alliance party yesterday. He reports he is not passing flatus and has not had a BM in the past two days, but normally he goes daily. He has no past abdominal surgical history. He takes hydrocodone intermittently for back and foot pain, but says he does not take it daily and can go months without taking it. Of note however the patient did fall last , breaking his ribs and is taking medication for this. In the ED patient underwent a CT scan which revealed moderate colonic and mild small bowel dilatation, no transition point. The findings are nonspecific and may reflect an enterocolitis with ileus, however a partial colonic obstruction could appear similar. The findings may be related to a moderate amount of stool within the sigmoid colon and descending colon. Also an occult colonic neoplasm cannot be excluded. Surgery was consulted for further evaluation. Allergies Allergy/AdvReac Type Severity Reaction Status Date / Time azathioprine Allergy Intermediate "allergic" Verified 02/13/19 09:52 atropine Allergy Mild allergic-SKIN Verified 02/13/19 09:52 BREAKDOWN diphenoxylate Allergy Mild allergic Verified 02/13/19 09:52 amlodipine [From Lotrel] Allergy Unknown Rash Verified 02/13/19 09:52 benazepril [From Lotrel] Allergy Unknown Rash Verified 02/13/19 09:52 Home Medications Home Medications Medication Instructions Recorded Confirmed Type cyanocobalamin (vitamin B-12) 1,000 mcg IM MONTHLY 07/29/18 02/13/19 History ferrous sulfate 325 mg PO QAM 07/29/18 02/13/19 History finasteride 5 mg PO HS 07/29/18 02/13/19 History mycophenolate mofetil [CellCept] 1,000 mg PO HS 07/29/18 02/13/19 History mycophenolate mofetil [CellCept] 500 mg PO QAM 07/29/18 02/13/19 History pregabalin [Lyrica] 50 mg PO HS 07/29/18 02/13/19 History ranitidine HCl 300 mg PO BID 07/29/18 02/13/19 History silodosin [Rapaflo] 8 mg PO HS 07/29/18 02/13/19 History hydrocodone 5 mg-acetaminophen 325 1 tab PO DAILY PRN #30 tab 08/05/18 02/13/19 Rx mg tablet Dexilant 60 mg PO BID #60 cap 08/25/18 02/13/19 Rx cholecalciferol (vitamin D3) 50 2,000 unit PO QAM #90 cap 10/03/18 02/13/19 History mcg (2,000 unit) capsule lisinopril 5 mg tablet 5 mg PO QAM #90 tab 10/29/18 02/13/19 Rx pregabalin 100 mg capsule 100 mg PO BID #8 cap 11/01/18 02/13/19 Rx levothyroxine 100 mcg tablet 100 mcg PO QAM 02/05/19 02/13/19 History albuterol sulfate 2 puff INHALATION Q6H PRN 02/13/19 02/13/19 History Patient History Medical History Anemia (Acute) Atrial fibrillation No currently on AC due to GIB and Cabrales's esophagus. Not currently requiring AV miguel angel hanna Cabrales's esophagus (Acute) [place] to be 2/2 scleroderma resulting in severe GERD. EGD 09/13 with esphagitis but negative for intestinal metaplasia. Increase in symptoms, repeat EGD soon. Managed with PPI and H2 hanna. Followed by GI BPH with obstruction/lower urinary tract symptoms (Chronic) Managed with combination therapy alpha hanna and 5-alpha reductase inhibitor. Followed by urology. Chronic pain (Chronic) 2/2 back pain with 3 previous spinal operations. Managed with pregabalin + hydrocodone-acetaminophen 5-325mg q6h PRN for pain Elevated prostate specific antigen (PSA) (Chronic) Negative biopsies 2006 and 2012. Prostate MRI (06/16) negative. PSA monitored yearly by urology. Gastric ulcer (Acute) Gastroesophageal reflux disease (Chronic) Managed with PPI and H2 hanna. Followed by GI. Complicated with Cabrales's esophagus. Hiatal hernia (Acute) Small, present on EGD (09/13). Hypertension (Chronic) Long standing. Currently managed with lisinopril 5mg daily. 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 Previously evaluated at [facility]. Followed by cardiology. Family History Grandmother (Maternal) Family history of diabetes mellitus Mother Family hx of colon cancer Social History Preferred Language: Citizen Of [place] Communication Ability: Effective Creative Guru Required: No Beliefs That Will Affect Care: None Current Living Situation: Significant Other Other Information That Helps Us Care for You: No Feels Safe at Home: Yes Safety Concerns: Feels Safe At This Time Smoking Status: Never smoker Second Hand Exposure: No ; Hx Alcohol Use: Yes Alcohol type: beer, wine and hard liquor Hx Substance Use: No Review of Systems Gastrointestinal: + abdominal pain, + bloating, + nausea, + vomiting and + constipation Physical Exam Physical Exam: intermittently falling asleep during interview, but is arousable Respiratory: normal respiratory effort Gastrointestinal (Abdomen): Inspection/Auscultation: + abdomen distended; no abdominal surgical incision Percussion/Palpation: + abdomen tender (diffusely tender and acutely tender in umbilical region. ) appears to have an umbilical hernia Results & Data Vital Signs (Past 12 Hours) Vital Signs Temp Pulse Pulse Resp BP BP Pulse Ox 02/13/19 12:59 36.9 C 91 H 18 130/78 96 02/13/19 12:09 88 20 134/82 93 02/13/19 10:31 87 27 H 93 02/13/19 10:30 86 26 H 133/78 93 02/13/19 10:01 87 30 H 90 02/13/19 10:00 89 31 H 113/67 89 L 02/13/19 09:57 87 29 H 113/69 87 L 02/13/19 09:34 86 17 02/13/19 09:02 80 20 90 02/13/19 09:01 80 34 H 113/66 91 02/13/19 08:56 82 24 119/70 02/13/19 08:51 36.7 C 75 20 119/[address] OF THE ABDOMEN AND PELVIS WITHOUT CONTRAST CLINICAL HISTORY: Abdominal pain. Evaluate for obstruction or perforation. COMPARISON STUDY: CT of the abdomen and pelvis December 15, 2011. TECHNIQUE: Axial images of the abdomen and pelvis were obtained without IV contrast. Images were reviewed in the axial, sagittal, and coronal planes. Automated exposure control was utilized for the study. A dose lowering techn ique was utilized adhering to the principles of ALARA. FINDINGS: Imaged portions of the lower chest demonstrate a prosthetic aortic valve and moderate cardiomegaly. In addition, there are are acute appearing bilateral lower rib fractures. No pneumatosis, free air or portal venous gas is present. There is a gallstone within the gallbladder. The gallbladder is mildly distended without pericholecystic infiltration. A water attenuation left renal lesion was shown to represent a cyst on prior contrast enhanced exam. The adrenal glands, right kidney and liver as well as the pancreas are unremarkable. The small bowel is slightly distended and fluid-filled. The the right colon is fluid-filled and distended as well. There is mild infiltration adjacent to the splenic flexure of the colon and the descending colon. A moderate amount stool within the left colon is noted. Sensitivity for detection mucosal lesions is diminished on this exam given unenhanced CT technique. No well-defined transition point is identified. There is sigmoid diverticulosis without evidence for acute diverticulitis. There is no lymphadenopathy. The prostate is mildly enlarged. Postoperative findings within the spine are noted. IMPRESSION: 1. Moderate colonic and mild small bowel dilatation. Left colon pericolonic infiltration. No transition point. The findings are nonspecific and may reflect an enterocolitis with ileus. However, a partial colonic obstruction could appear similar. The findings may be related to a moderate amount of stool within the sigmoid colon and descending colon. An occult colonic neoplasm cannot be excluded and therefore a nonemergent colonoscopy is recommended. 2. Multiple acute appearing nondisplaced bilateral rib fractures. 3. Cholelithiasis. Electronically signed by: Nirmal Watkins M.D. 02/13/2019 9:53 AM PG Care Time/CCT Total # of Minutes Spent Total Time Spent with Patient: Total time spent is greater than 50% in coordination of care (as documented) at patient's floor/unit and/or counseling patient:
--- NOTE | 2019-02-13 15:07 | Gastrointestinal Consultation ---
Date of Consultation February 13, 2019 Assessment & Plan (1) Ileus: Likely related to narcotic use in the setting of motility issues due to Scleroderma vs infectious process. -Conservative medical management; NGT may improve his symptoms -No indication for colonoscopy evaluation as patient just had a colonoscopy on 12/20/2018 -Dulcolax suppository (2) Esophagitis: EGD demonstrating persistent esophagitis. -Continue Dexilant 60 mg BID -Continue Ranitidine 300 mg BID -Patient has had issues with Carafate & Reglan in the past so these have been avoided -Proceed with appointment at [facility] as previously planned due to persistent esophagitis despite high dose PPI therapy. Discussed a multidisciplinary approach with [facility] & his Scleroderma team there Thank you for allowing us to the opportunity to care for this patient. If you should have any further questions or concerns, do not hesitate to call extension [phone] or [phone]. Supervising Physician Co-Signing Physician Notes Agree with Ana Rosa Fonseca, ORQUIDEA Abd: Soft, Tender throughout, Distended, + Guarding, +BS Continue supportive care Recommend Dulcolax: 1 Suppository MD BID History of Present Illness Reason for Consultation: ileus Attending Physician: Haroon Sánchez, History of Present Illness Patient is a 58 yo male with a history of Scleroderma, esophagitis, paroxysmal a fib, aortic valve replacement, anemia, hypertension, hypothyroidism, osteoarthritis, Peyronie's Disease, and recent rib fracture. He has been using narcotics due to these rib fractures. He presented to the ER with abdominal pa in. A CT scan indicates an ileus. He had a colonoscopy in November 2018 that indicated a polyp and diverticular disease but no evidence of underlying neoplasm. He is not vomiting. No NG is placed per patient request. He does report exquisite tenderness of the abdomen. He reports a bowel movement yesterday. Patient also has a history of esophagitis persistent despite high dose Dexilant therapy, H2 blockers, & Carafate use. Due to his scleroderma and lack of improvement on conventional therapies, he has an upcoming appointment at GI at [facility] at our request. This is also where his Scleroderma center is located. Allergies Allergy/AdvReac Type Severity Reaction Status Date / Time azathioprine Allergy Intermediate "allergic" Verified 02/13/19 09:52 atropine Allergy Mild allergic-SKIN Verified 02/13/19 09:52 BREAKDOWN diphenoxylate Allergy Mild allergic Verified 02/13/19 09:52 amlodipine [From Lotrel] Allergy Unknown Rash Verified 02/13/19 09:52 benazepril [From Lotrel] Allergy Unknown Rash Verified 02/13/19 09:52 Home Medications Home Medications Medication Instructions Recorded Confirmed Type cyanocobalamin (vitamin B-12) 1,000 mcg IM MONTHLY 07/29/18 02/13/19 History ferrous sulfate 325 mg PO QAM 07/29/18 02/13/19 History finasteride 5 mg PO HS 07/29/18 02/13/19 History mycophenolate mofetil [CellCept] 1,000 mg PO HS 07/29/18 02/13/19 History mycophenolate mofetil [CellCept] 500 mg PO QAM 07/29/18 02/13/19 History pregabalin [Lyrica] 50 mg PO HS 07/29/18 02/13/19 History ranitidine HCl 300 mg PO BID 07/29/18 02/13/19 History silodosin [Rapaflo] 8 mg PO HS 07/29/18 02/13/19 History hydrocodone 5 mg-acetaminophen 325 1 tab PO DAILY PRN #30 tab 08/05/18 02/13/19 Rx mg tablet Dexilant 60 mg PO BID #60 cap 08/25/18 02/13/19 Rx cholecalciferol (vitamin D3) 50 2,000 unit PO QAM #90 cap 10/03/18 02/13/19 History mcg (2,000 unit) capsule lisinopril 5 mg tablet 5 mg PO QAM #90 tab 10/29/18 02/13/19 Rx pregabalin 100 mg capsule 100 mg PO BID #8 cap 11/01/18 02/13/19 Rx levothyroxine 100 mcg tablet 100 mcg PO QAM 02/05/19 02/13/19 History albuterol sulfate 2 puff INHALATION Q6H PRN 02/13/19 02/13/19 History Patient History Medical History Anemia (Acute) Atrial fibrillation No currently on AC due to GIB and Cabrales's esophagus. Not currently requiring AV miguel angel hanna Cabrales's esophagus (Acute) [place] to be 2/2 scleroderma resulting in severe GERD. EGD 09/13 with esphagitis but negative for intestinal metaplasia. Increase in symptoms, repeat EGD soon. Managed with PPI and H2 hanna. Followed by GI BPH with obstruction/lower urinary tract symptoms (Chronic) Managed with combination therapy alpha hanna and 5-alpha reductase inhibitor. Followed by urology. Chronic pain (Chronic) 2/2 back pain with 3 previous spinal operations. Managed with pregabalin + hydrocodone-acetaminophen 5-325mg q6h PRN for pain Elevated prostate specific antigen (PSA) (Chronic) Negative biopsies 2006 and 2012. Prostate MRI (06/16) negative. PSA monitored yearly by urology. Gastric ulcer (Acute) Gastroesophageal reflux disease (Chronic) Managed with PPI and H2 hanna. Followed by GI. Complicated with Cabrales's esophagus. Hiatal hernia (Acute) Small, present on EGD (09/13). Hypertension (Chronic) Long standing. Currently managed with lisinopril 5mg daily. 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 Previously evaluated at [facility]. Followed by cardiology. 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 Required: No Beliefs That Will Affect Care: None Current Living Situation: Significant Other Other Information That Helps Us Care for You: No Feels Safe at Home: Yes Safety Concerns: Feels Safe At This Time Smoking Status: Never smoker Second Hand Exposure: No ; Hx Alcohol Use: Yes Alcohol type: beer, wine and hard liquor Hx Substance Use: No Review of Systems Constitutional: no fever and no chills Eyes: no acute issues Ear, Nose, Mouth, Throat: no acute issues Respiratory: no cough and no dyspnea Cardiovascular: no chest pain Gastrointestinal: + abdominal pain and + change in bowel habits Integumentary: no rash Neurologic: no acute issues Psychiatric: no acute issues Endocrine: no fatigue Hematologic / Lymphatic: no acute issues Physical Exam Constitutional: WD/WN, vitals as above Eyes: PERRL, conjunctivae normal, anicteric sclerae ENMT: external ear and nose normal, oropharynx normal Neck: normal visual inspection Respiratory: normal respiratory effort, lungs clear to auscultation Cardiovascular: RRR, no murmur, no edema Gastrointestinal (Abdomen): Inspection/Auscultation: + abdomen distended Percussion/Palpation: + abdomen tender tinkling bowel sounds Musculoskeletal: no cyanosis or clubbing, extremities motor strength 5/5 Skin: no rashes, warm and dry Psychiatric: A+Ox3, euthymic affect Results & Data Vital Signs (Past 12 Hours) Vital Signs Temp Pulse Pulse Resp BP BP Pulse Ox 02/13/19 12:59 36.9 C 91 H 18 130/78 96 02/13/19 12:09 88 20 134/82 93 02/13/19 10:31 87 27 H 93 02/13/19 10:30 86 26 H 133/78 93 02/13/19 10:01 87 30 H 90 02/13/19 10:00 89 31 H 113/67 89 L 02/13/19 09:57 87 29 H 113/69 87 L 02/13/19 09:34 86 17 02/13/19 09:02 80 20 90 02/13/19 09:01 80 34 H 113/66 91 02/13/19 08:56 82 24 119/70 02/13/19 08:51 36.7 C 75 20 119/70 94 PG Care Time/CCT Total # of Minutes Spent Total Time Spent with Patient: Total time spent is greater than 50% in coordination of care (as documented) at patient's floor/unit and/or counseling patient:
[2019-02-13] MEDS: NSS + 20MEQ KCL 20 MEQ/1,000 ML BAG IV SCH (16:39)
[2019-02-13] MEDS ORDERED: bisacodyL 10 MG SUPP PR STA (17:12)
[2019-02-13] MEDS ORDERED: Nursing to Pharmacy Communication ONE (17:22)
[2019-02-13] MEDS: PREGABALIN 100 MG CAP PO SCH (20:44)
[2019-02-13] MEDS: PANTOprazole 40 MG TAB PO SCH (20:44)
[2019-02-13] MEDS ORDERED: PREGABALIN 50 MG CAP PO SCH (21:00)
[2019-02-13] MEDS ORDERED: FINASTERIDE 5 MG TAB PO SCH (21:00)
[2019-02-13] MEDS ORDERED: MYCOPHENOLATE MOFETIL 250 MG CAP PO SCH (21:00)
[2019-02-14] MEDS ORDERED: SODIUM CHLORIDE 0.9% 1000ML 1,000 ML IV SCH (00:34)
[2019-02-14 01:18] LABS: Hematocrit (blood only) 52.6 % (42-52); Mean Corpuscular Hemoglobin 29.1 pg (25-34); Mean Corpuscular Volume 89.9 fL (80-100); Mean Platelet Volume 10.2 fL (7.4-10.4); Platelet Count 255 K/uL (130-400); RDW Coefficient of Variation 13.9 % (11.5-14.5); RDW Standard Deviation 45.6 fL (36.4-46.3); Red Blood Count 5.85 M/uL (4.7-6.1)
[2019-02-14 01:35] LABS: Calcium 8.5 mg/dl (8.5-10.1); Est GFR (African American) 21.5; Est GFR (Non-African American) 18.5; Potassium 5.3 mmol/L (3.5-5.1)
[2019-02-14] MEDS: NSS + 20MEQ KCL 20 MEQ/1,000 ML BAG IV SCH (01:36)
[2019-02-14 01:43] LABS: Mean Corpuscular Hgb Conc 32.3 g/dL (32-36)
[2019-02-14] MEDS ORDERED: NOREPINEPHRINE BIT INJ 8 MG in DEXTROSE 5% 500 ML IV STA ×2 (01:51→01:55)
[2019-02-14] MEDS ORDERED: SODIUM BICARB 8.4% INJ 50 MEQ/50 ML SYR ONE ×2 (01:53→04:45)
[2019-02-14] MEDS ORDERED: RAPID SEQUENCE INDUCTION BAG ONE (01:54)
[2019-02-14] MEDS ORDERED: VANCOMYCIN HCL 2,250 MG in SODIUM CHLORIDE 0.9% 500 ML IV ONE (02:00)
[2019-02-14] MEDS ORDERED: PIPERACILLIN/TAZOBACTAM 4.5 GM in DEXTROSE 5% 100 ML IV ONE (02:00)
[2019-02-14] MEDS ORDERED: VANCOMYCIN HCL 1,750 MG in SODIUM CHLORIDE 0.9% 500 ML IV SCH (02:09)
[2019-02-14] MEDS ORDERED: VANCOMYCIN CONSULT ACTIVE PRN (02:09)
[2019-02-14] MEDS ORDERED: NOREPINEPHRINE BIT INJ 8 MG in DEXTROSE 5% 500 ML IV SCH (02:09)
[2019-02-14] MEDS: NOREPINEPHRINE (Adult) 8 MG in DEXTROSE 5% 500 ML IV SCH ×5 (02:12→21:06)
[2019-02-14 02:13] LABS: iSTAT Arterial Blood Gas HCO3 27 meg/L (19-24); iSTAT Arterial Blood Gas pCO2 52 mmHg (35-46); iSTAT Arterial Blood Gas pH 7.32 (7.35-7.45); iSTAT Arterial Blood Gas pO2 55 mmHg (80-95); iSTAT Carbon Dioxide 28 mEq/l (24-31); iSTAT FiO2 100 %; iSTAT Site Art Line
[2019-02-14] MEDS ORDERED: METOCLOPRAMIDE HCL INJ 5 MG/ML 2 ML VIAL IV ONE (02:14)
[2019-02-14] MEDS ORDERED: METOCLOPRAMIDE HCL INJ 5 MG/ML 2 ML VIAL ONE (02:16)
[2019-02-14] MEDS ORDERED: PHENYLEPHRINE 100MCG/ML 5ML SYR IV PRN (02:21)
[2019-02-14 02:25] LABS: ALC (manual) 1.36 K/uL (1.2-3.4); ANC (manual) 8.43 K/uL (1.4-6.5); Basophils # (manual) 0.14 K/uL (0-0.2); Basophils % (manual) 0.9 %; Lymphocytes # (manual) 1.36 K/uL (1.2-3.4); Lymphocytes % (manual) 8.8 %; Metamyelocytes # (manual) 2.85 K/uL (0-0); Metamyelocytes % (manual) 18.4 %; Monocytes # (manual) 1.22 K/uL (0.11-0.59); Monocytes % (manual) 7.9 %; Myelocytes # (manual) 1.49 K/uL (0-0); Myelocytes % (manual) 9.6 %; Neutrophils # (manual) 8.43 K/uL (1.4-6.5); Neutrophils % (manual) 54.4 %
[2019-02-14] MEDS: SODIUM CHLORIDE 0.9% 1000ML 1,000 ML IV SCH ×2 (02:30→10:34)
[2019-02-14] MEDS ORDERED: MIDAZOLAM HCL 1 MG/ML 2ML VIAL IV PRN (02:39)
[2019-02-14] MEDS ORDERED: ICU PROTOCOL FOR HYPERGLYCEMIA PRN (02:39)
[2019-02-14] MEDS ORDERED: HYDROmorphone INJ 0.5 MG/0.5 ML SYR IV PRN (02:48)
[2019-02-14] MEDS ORDERED: EPINEPHrine 2 MG in DEXTROSE 5% 250 ML IV STA (02:52)
--- NOTE | 2019-02-14 03:10 | Procedure Note ---
Procedure Note Date of Service February 14, 2019 Note Called to assist with patient in respiratory distress after an apparent aspiration episode of fecal smelling liquid on the floor. History of A Fib and an aortic lul replacement in the past, not anticoagulated. Being seen recently regarding possible pacemaker placement for some AV block. Creatinine bumped up significantly from yesterday morning. Potassium is 5.3. On norepinephrine to keep his blood pressure in the 80's and on BiPAP to keep his sats in the 80's. Due to likelihood of further aspiration I felt succinylcholine was appropriate despite worries of his potassium being a little elevated. Rapid sequence with etomidate 20mg and succ 60mg allowed visualization of the glottis with a glidescope 3. There was some liquid in the oropharynx that was suctioned and an ETT was inserted without difficulty. Good color change on CO2 detector, bilateral breath sounds, sats up into low 90's. Continued to have significant pauses but blood pressure actually improved for a time after intubation. I placed an NG tube and a chest xray was done. About 15 minutes later he had an extended pause of asystole requiring chest compressions for a minute or two with return of pulses. Now on epinephrine drip as well with good blood pressure, ICU team working on central line and further care. Coding
--- NOTE | 2019-02-14 03:18 | Surgery Progress Note ---
Date of Service February 14, 2019 Assessment & Plan (1) Abdominal pain: It was apparent the patient had a significant aspiration with difficulty oxygenating I do not think his abdominal exam significantly changed and that most of his acidosis was Likely respiratory in nature. The current plan is to intubate the patient and stabilize him With possible bronchoscopy. My plan would be to reassess the patient after he is stabilized From his acute respiratory event. Subjective Called by the medical team after patient required transfer to the intensive care unit. He apparently had a small emesis and then there was an attempted NG tube placement and the patient Had episodes of emesis with apparent aspiration. His O2 sats fell and he became hypotensive and tachycardic Physical Exam Physical Exam: Patient is on O2 mask when I initially saw him in the intensive care unit he was tachypneic And hypotensive His abdomen is distended but appears to be less tender and does not have any evidence of peritoneal signs He actually has tympany to percussion with minimal tenderness to palpation. Results & Data Vital Signs (Past 12 Hours) Vital Signs Temp Pulse Pulse Resp BP Pulse Ox 02/14/19 01:10 150 H 74/62 L 91 02/13/19 23:20 95 H 02/13/19 19:24 36.7 C 93 H 16 137/62 91 02/13/19 15:11 37.3 C 93 H 16 146/90 H 91 PG Care Time/CCT Total # of Minutes Spent Total Time Spent with Patient: Total time spent is greater than 50% in coordination of care (as documented) at patient's floor/unit and/or counseling patient: (1) Abdominal pain Abdominal location: unspecified location Qualified Code(s): R10.9 - Unspecified abdominal pain
--- NOTE | 2019-02-14 03:28 | Critical Care Consultation ---
Date of Consultation February 14, 2019 Assessment & Plan (1) Admitted to intensive care unit: Reason Critically Ill: 58-year-old male in acute hypoxic respiratory distress secondary to aspiration event requiring emergent endotracheal intubation for airway protection and oxygenation status. Several minutes after airway successfully achieved, the patient developed multiple pauses and eventually became asystolic and lost pulses and waveform on arterial line. ERIC BUSTAMANTE was called overhead. Chest compressions were initiated. While monitoring A-line activity, high quality CPR was noted. Patient received initial dose of IV epinephrine followed by bicarbonate, calcium chloride, insulin, and glucose. He received additional doses of bicarbonate. During CPR, the patient had a few occasions where he did regain consciousness, however he would quickly lose his pulse and pressure. Patient had a total downtime of approximately 2 minutes. He did require sedation after return of circulation. Patient maintained heart rate and sustained great blood pressures. Epinephrine drip had been initiated at that point. There was conversation and thoughts regarding: The patient status post arrest, however the patient was showing purposeful signs of movement, he is felt to be septic at this time, and he is likely to need to undergo surgical intervention in the near future. Because of these things, therapeutic hypothermia was excluded. NEURO - * CAM ICU: NEGATIVE * Sedation: Versed drip * Pain: Dilaudid as needed CARDIAC/VASCULAR - * Asystolic cardiac arrest status post successful resuscitation: * Patient with increasing pauses. Per his record, he did have a history of high-grade AV block with concerns for Mobitz type II in the past. He is been evaluated for pacemaker placement. While this may likely contributed, I am concerned that his metabolic acidosis in the setting of acute kidney injury and hyperkalemia likely contributed to arrest. * He did respond well to bicarbonate as well as vasopressors including Levophed and epinephrine. * Will add a.m. echocardiogram. * Trend troponins. * Monitor electrolytes closely. * History of aortic valve replacement in the setting of bicuspid aortic valve. * Hypertension: * Hold current medications * EKG: QRS widening noted. This has seemed to improve status post wrist interventions. * Monitor on telemetry. RESPIRATORY - * Acute hypoxic respiratory failure: * Likely secondary to aspiration event. * Requiring endotracheal intubation. * Will cover with Zosyn and vancomycin. GI/NUTRITION - * Ileus: * Presenting with ileus now with intense vomiting of fecal-like material. * Increasing serum lactate. * General surgery involved without change in abdominal exam. * Unable to perform emergent CT at this time pending stabilization of patient. * Will shoot intra-abdominal pressures regularly to assess possibility of intra-abdominal compartment syndrome. * Will decompress with NG tube. * Appreciate ongoing surgical evaluation. RENAL/LYTES - * ADRIANO: * Concerning for GI losses. * Impressive decline in renal function despite IV fluids administered throughout stay. * Will aggressively resuscitate to match GI losses. * Hyperkalemia: * Likely secondary to above. * Currently on bicarb drip. * Will continue treat appropriately. * IVF: NSS at 100 mL's per hour - * Roldan in place - Strict I&Os. ENDO - * No history of diabetes. * BSGs per unit protocol. ISS --> gtt per unit policy. * Hypothyroidism * Consider transitioning to IV pending current course. * Immunocompromise on CellCept. * Will add stress dose steroids. HEME - * Stable H&H. ID - * Severe sepsis with septic shock: * Multifactorial, but including pulmonary sources as well as possible intra- abdominal pathology. * Will add Zosyn and vancomycin. * Cultures pending. * Will check procalcitonin. * Trend lactic acid. LINES/IV ACCESS - * PIVs x2 * RIGHT femoral central line. * RIGHT radial arterial line. * Roldan catheter * ET tube DVT PROPHYLAXIS - * SCDs I have personally spent 120 minutes of critical care time in the direct management of this patient. This is a life/limb threatening event. This includes time spent evaluating patient, direct bedside care, chart review, placing orders, interpretation of diagnostic studies, discussion with consultants, patient, and family members, as well as other required patient management activities. This time is exclusive of all separately billable procedures, and teaching time and separate from and in addition to any other critical care service time. Thank you for allowing us to participate in the care of this patient. Please refer to my attending physician's documentation for any further recommendations. (2) Respiratory failure with hypoxia: (3) Aspiration into airway: (4) Metabolic acidemia: (5) Hyperkalemia: (6) Acute kidney failure: (7) Ileus: (8) Abdominal pain: (9) GERD (gastroesophageal reflux disease): (10) Diffuse cutaneous systemic sclerosis: (11) Paroxysmal atrial fibrillation: (12) H/O aortic valve replacement: (13) BPH with obstruction/lower urinary tract symptoms: (14) Cabrales's esophagus: (15) Cardiac arrest: Supervising Physician Co-Signing Physician Notes I was notified by nursing staff of the cardiac arrest/CODE BLUE in progress. Upon my arrival in the ICU the patient had return of spontaneous circulation and was starting to stabilize. See additional documentation for further details. History of Present Illness Attending Physician: Haroon Sánchez DO History of Present Illness Patient is a 58-year-old male with a significant past medical history of hypertension, hypothyroidism, GERD, Cabrales's esophagus, diffuse cutaneous systemic sclerosis, scleroderma, paroxysmal A. fib, status post aortic valve replacement 10 years ago, and recent fall. Patient was admitted to this facility with abdominal pain and findings consistent with acute ileus. In the emergency department, he was found to have dilation bowel and ileus without overt findings for obstructive changes. He was seen by general surgery as well as GI. He had no vomiting for extended period of time and had refused NG tube placement. Throughout the evening, the patient became increasingly nauseated with vomiting of fecal material. NG tube was attempted to be placed, but was unsuccessfully done. Patient vomited a substantial amount of fecal-like material. There was concern for aspiration. He had a drop of his blood pressure and increased heart rate into the 150s. He was hypoxic in the low 80s while on 15 L oxygen mask. Patient was transferred to the ICU for further evaluation and management. Upon evaluation in the ICU, the patient is awake and alert. He is oriented. He complains of abdominal pain, but reports that it is no worse or better than presentation. He complains of nausea. Repeat labs demonstrate worsening acute kidney injury with a creatinine of greater than 3. Potassium greater than 5. Bicarb is found to be low. Lactic acid greater than 7. I had an extensive conversation with the patient at bedside with my concerns. Patient is tachypneic and with increasing work of breathing. He is hypoxic on a 15 L nonrebreather. He consents to all interventions including central line, A- line, and emergent endotracheal intubation. Allergies Allergy/AdvReac Type Severity Reaction Status Date / Time azathioprine Allergy Intermediate "allergic" Verified 02/13/19 09:52 atropine Allergy Mild allergic-SKIN Verified 02/13/19 09:52 BREAKDOWN diphenoxylate Allergy Mild allergic Verified 02/13/19 09:52 amlodipine [From Lotrel] Allergy Unknown Rash Verified 02/13/19 09:52 benazepril [From Lotrel] Allergy Unknown Rash Verified 02/13/19 09:52 Home Medications Home Medications Medication Instructions Recorded Confirmed Type cyanocobalamin (vitamin B-12) 1,000 mcg IM MONTHLY 07/29/18 02/13/19 History ferrous sulfate 325 mg PO QAM 07/29/18 02/13/19 History finasteride 5 mg PO HS 07/29/18 02/13/19 History mycophenolate mofetil [CellCept] 1,000 mg PO HS 07/29/18 02/13/19 History mycophenolate mofetil [CellCept] 500 mg PO QAM 07/29/18 02/13/19 History pregabalin [Lyrica] 50 mg PO HS 07/29/18 02/13/19 History ranitidine HCl 300 mg PO BID 07/29/18 02/13/19 History silodosin [Rapaflo] 8 mg PO HS 07/29/18 02/13/19 History hydrocodone 5 mg-acetaminophen 325 1 tab PO DAILY PRN #30 tab 08/05/18 02/13/19 Rx mg tablet Dexilant 60 mg PO BID #60 cap 08/25/18 02/13/19 Rx cholecalciferol (vitamin D3) 50 2,000 unit PO QAM #90 cap 10/03/18 02/13/19 History mcg (2,000 unit) capsule lisinopril 5 mg tablet 5 mg PO QAM #90 tab 10/29/18 02/13/19 Rx pregabalin 100 mg capsule 100 mg PO BID #8 cap 11/01/18 02/13/19 Rx levothyroxine 100 mcg tablet 100 mcg PO QAM 02/05/19 02/13/19 History albuterol sulfate 2 puff INHALATION Q6H PRN 02/13/19 02/13/19 History Patient History Medical History Anemia (Acute) Atrial fibrillation No currently on AC due to GIB and Cabrales's esophagus. Not currently requiring AV miguel angel hanna Cabrales's esophagus (Acute) [place] to be 2/2 scleroderma resulting in severe GERD. EGD 09/13 with esphagitis but negative for intestinal metaplasia. Increase in symptoms, repeat EGD soon. Managed with PPI and H2 hanna. Followed by GI BPH with obstruction/lower urinary tract symptoms (Chronic) Managed with combination therapy alpha hanna and 5-alpha reductase inhibitor. Followed by urology. Chronic pain (Chronic) 2/2 back pain with 3 previous spinal operations. Managed with pregabalin + hydrocodone-acetaminophen 5-325mg q6h PRN for pain Elevated prostate specific antigen (PSA) (Chronic) Negative biopsies 2006 and 2012. Prostate MRI (06/16) negative. PSA monitored yearly by urology. Gastric ulcer (Acute) Gastroesophageal reflux disease (Chronic) Managed with PPI and H2 hanna. Followed by GI. Complicated with Cabrales's esophagus. Hiatal hernia (Acute) Small, present on EGD (09/13). Hypertension (Chronic) Long standing. Currently managed with lisinopril 5mg daily. 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 Previously evaluated at [facility]. Followed by cardiology. 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 All else were negative. Physical Exam Physical Exam: VITAL SIGNS - Vital signs and nursing notes were reviewed. GENERAL - 58-year-old male appearing his stated age who is in moderate respiratory distress. Unable to complete full sentences secondary to tachypnea. SKIN - Without rashes. HEAD - NC/AT. EYES - PERRL with EOMI bilaterally. Sclera anicteric. EARS - No deformities of external structures noted on gross examination bilaterally. NOSE - Midline and without cyanosis. MOUTH/OROPHARYNX - Without perioral cyanosis. NECK - Neck with FROM. Supple to palpation. No nuchal rigidity. LUNGS -tachypneic. Coarse breath sounds noted throughout. CARDIAC - RRR with S1/S2. No murmur, rubs, or gallops appreciated. ABDOMEN - Abdominal contour distended. Hypoactive bowel sounds. Tender to palpation in the LEFT lower quadrant. EXTREMITIES - No clubbing or peripheral cyanosis. No pretibial edema present. +1/5 radial and dorsalis pedis pulses palpated throughout. +5/5 strength noted in UE/LE bilaterally. NEUROLOGIC - Cranial nerves II through XII grossly intact. Sensory intact to light touch throughout. PSYCH - A&Ox3 and cooperates fully with examiner. Results & Data Vital Signs (Past 12 Hours) Vital Signs Temp Pulse Pulse Resp BP Pulse Ox 02/14/19 01:10 150 H 74/62 L 91 02/13/19 23:20 95 H 02/13/19 19:24 36.7 C 93 H 16 137/62 91 Coding Level of Care Code Critical Care 1st 30-74 mins Diagnoses Admitted to intensive care unit Z78.9 Respiratory failure with hypoxia J96.91 Aspiration into airway T17.908A Metabolic acidemia E87.2 Hyperkalemia E87.5 Acute kidney failure N17.9 Ileus K56.7 Abdominal pain R10.9 Abdominal location: unspecified location GERD (gastroesophageal reflux disease) K21.9 Diffuse cutaneous systemic sclerosis M34.89 Paroxysmal atrial fibrillation I48.0 H/O aortic valve replacement Z95.2 BPH with obstruction/lower urinary tract symptoms N40.1; N13.8 Cabrales's esophagus K22.70 Cardiac arrest I46.9 Time Spent (min) 120 Comment Please adjust time accordingly. (1) Abdominal pain Abdominal location: unspecified location Qualified Code(s): R10.9 - Unspecified abdominal pain
--- NOTE | 2019-02-14 03:28 | Procedure Note ---
Procedure Note Date of Service February 14, 2019 Procedure: Arterial Line Placement Attending: Dr. Clements APC: Shailesh Carson PA-C Indication: Monitoring on Pressors Anesthesia: Lidocaine 1% Patient presented to the ICU with systolic blood pressures in the 60s. He was actively resuscitated with IV fluids. Despite this, we are unable to achieve increase in blood pressure. Orders placed for levo fed. Discussion had with patient at bedside regarding placement of arterial line emergently. Indication, risks, and benefits were explained at length. Patient verbally consents to procedure. Emergent consent implied. A time-out was completed verifying correct patient, procedure, site, positioning, and implant(s) or special equipment if applicable. Allens test was performed to ensure adequate perfusion. Patients RIGHT wrist was prepped and draped in the usual sterile fashion. Ultrasound guidance was used to aid needle placement. A 20g Arrow arterial line was introduced into the RIGHT Radial artery. Catheter was threaded, and the needle was removed with appropriate blood return. Good waveform was observed. The patient tolerated the procedure well. Confirmation of placement with ultrasound. Blood Loss: Minimal Complications: None Procedural Ultrasound Guidance: Procedure Date: 02/14/2019 Indication: ABGs, Pressors, Frequent Lab Draws. Attending: Dr. Clements APC: Shailesh Carson PA-C Artery Identified: YES Line confirmed in Artery with ultrasound: YES Complications: NONE Patient tolerated procedure: WELL Coding CPT Codes Tubes, Drains, and Vasc Access - Tubes, Drains, and Vasc Access: [id number] Insertion Catheter, Artery ([id number])
--- NOTE | 2019-02-14 03:28 | Procedure Note ---
Procedure Note Date of Service February 14, 2019 Procedure: Femoral Central Line Placement Attending: Dr. Clements APC: Shailesh Carson PA-C Indication: Central Drug Administration, Poor Venous Access, Multiple Lab Draws Necessary, etc. Anesthesia: Lidocaine 1% Patient was actively being resuscitated from cardiac arrest and requiring cent ral access for administration of vasopressors, volume, etc. Emergent consent implied given the severity of situation and need for better access. A time-out was completed verifying correct patient, procedure, site, positioning, and implants(s) or special equipment if applicable. Patients RIGHT Groin was cleansed and draped in the typical sterile fashion using Chloraprep. The Femoral Vein and Femoral Artery were identified using ultrasound. The superficial tissue was anesthetized using 3.0 mL of 1% lidocaine without epinephrine under direct visualization with the ultrasound. After adequate an esthetization was achieved, the Femoral Vein was cannulated under direct ultrasound guidance using an introducer needle on a syringe. Good venous blood return was maintained prior to removal of syringe from introducer needle. Using Seldinger Technique, a guide wire was advanced through the introducer needle without resistance. The introducer needle was removed and ultrasound images were obtained of the guide wire within the Femoral Vein and saved to the patients medical record. A small incision was made in penetrating fashion at the guide wire insertion site utilizing an 11 blade scalpel. The dilator was advanced to the vessel without resistance. The dilator was exchanged for the triple lumen catheter which was advanced into the vessel without resistance. The guide wire was removed intact from the catheter without issue. Claves were placed on each catheter tip with confirmation of good blood flow from each lumen. Each port was easily flushed with sterile saline. The catheter was placed at 18 cm and sut[address] in place. BioPatch was applied to the catheter and a sterile Tegaderm dressing was applied over the catheter with careful attention to sterility. Patient tolerated procedure well. No immediate complications were met. Images obtained are saved for permanent record Procedural Ultrasound Guidance: Procedure Date: 02/14/2019 Indication: Pressors, Poor Access Attending: Dr. Clements APC: Shailesh Carson PA-C Artery AND Vein visualized: YES Compressible Vein: YES Guidewire or Short Catheter seen in vein prior to dilation: YES Line confirmed in Vein with ultrasound: YES Images obtained are saved for permanent record. Coding CPT Codes Tubes, Drains, and Vasc Access - Tubes, Drains, and Vasc Access: [id number] Place catheter in vein superior or inferior vena cava ([id number])
[2019-02-14] MEDS ORDERED: PIPERACILL/TAZOBAC CONSULT ACTIVE PRN (03:38)
[2019-02-14 03:44] LABS: BUN Creatinine Ratio 13.7 (10-20); Calcium 8.6 mg/dl (8.5-10.1); Creatinine Clr Calc Pharmacy 34.6 ml/min; Est GFR (African American) 24.5; Est GFR (Non-African American) 21.2; Potassium 5.2 mmol/L (3.5-5.1)
[2019-02-14] MEDS: SILODOSIN 8 MG SCH ×3 (03:49→17:32)
[2019-02-14] MEDS: SODIUM BICARBONATE 8.4% 150 MEQ in DEXTROSE 5% 1,000 ML IV SCH ×3 (03:53→20:05)
[2019-02-14 03:58] LABS: Beta-Hydroxybutyrate 1.53 mg/dl (0.2-2.81)
[2019-02-14 04:14] LABS: Hematocrit (blood only) 42.7 % (42-52); Hemoglobin 13.6 g/dL (14.0-18.0); Mean Corpuscular Hemoglobin 28.3 pg (25-34); Mean Corpuscular Hgb Conc 31.9 g/dL (32-36); Mean Corpuscular Volume 88.8 fL (80-100); Mean Platelet Volume 10.5 fL (7.4-10.4); Platelet Count 224 K/uL (130-400); RDW Standard Deviation 45.4 fL (36.4-46.3); Red Blood Count 4.81 M/uL (4.7-6.1); White Blood Count 8.63 K/uL (4.8-10.8)
[2019-02-14 04:15] LABS: Troponin I 0.086 ng/ml (0-0.045)
[2019-02-14] MEDS ORDERED: THIAMINE HCL 200 MG in SODIUM CHLORIDE 0.9% 50 ML IV STA (04:37)
--- NOTE | 2019-02-14 04:46 | Communication Note ---
Date of Service: February 14, 2019 Briefly patient is a 58-year-old male with a significant past medical history of scleroderma on disease modifying agents, aortic valve replacement approximately 12 years ago, history is obtained from the patient's sister and prior records. I reviewed the imaging and labs prior to his transfer to the ICU. Patient has received crystalloid replacement, required intubation for known aspiration of what appears to be feculent material. Currently the patient is on epinephrine secondary to significant hemodynamic instability with episodes of pauses and essentially asystole. Patient has a history of atrial fibrillation not on anticoagulation secondary to Cabrales's esophagus. He had a significant lactic acidosis which appears to be downtrending and a con commitment acute kidney injury. He appears to be making urine after Roldan catheter placement. Consideration was given to therapeutic hypothermia however this patient did appear to have meaningful activity/purposeful movements responding to pain and has a high possibility of requiring emergent surgery for bowel obstruction. At this time the patient is not a suitable candidate for surgery and we will continue to resuscitate the patient, trend lactates. The differential does include possible embolic phenomenon from on anticoagulated atrial fibrillation and associated mesenteric ischemia. Patient is on broad-spectrum antibiotics as he is immunocompromised from medications treating the underlying connective tissue disorder: Scleroderma. At this time I am holding bronchoscopy secondary to aspiration pneumonitis, lavage will most likely dilute and remove surfactant. Social history obtained from the patient's sister reports that he is greater than 20 years ago, has 2 adult children 1 of whom is developmentally delayed and reportedly would not have significant capacity to appreciate gravity of decisions to function as a substitute decision maker. The patient's sister reports she had a power of erisa attorney during his last major medical episode which he was undergoing open heart surgery. She will attempt to locate the power of erisa attorney, the patient's nephew is reported to be his erisa attorney and may be able to provide a copy of the documentation. He does have a significant other however they are not . At this time we will proceed with using his sister as his medical decision-maker given the reported social history. The patient's sister reports that his daughter is recently discovered she is and they have been attempting to contact her and update her of his condition.
[2019-02-14] MEDS: HYDROCORTISONE SOD 100 MG in SYRINGE 0 ML IV SCH ×4 (04:48→23:03)
[2019-02-14] MEDS: LEVOTHYROXINE SODIUM 100 MCG TABLET PO SCH (04:48)
--- NOTE | 2019-02-14 05:20 | Progress Note ---
Date of Service February 14, 2019 Assessment & Plan (1) Ileus: Called to bedside by nursing due to concerns regarding several episodes of feculent vomiting, lethargy, and low blood pressure. Dr. Pacheco and I went to the bedside to assess the patient. He was responsive, alert and oriented x3. His abdomen was distended, tender throughout, but did have a bowel sounds present. His blood pressure at this time was 70s systolic. I ordered a 1 L normal saline bolus, and stat CBC, BMP, and lactate. His oxygen saturations began to fall, and were hovering around 80 to 90%. He was placed on 5 L of oxygen via oxygen mask, and gradually increased to 15 L. I ordered a stat CXR and KUB, which revealed his NG tube was not correctly placed. This was removed. His blood pressure failed to improve despite the 1 L bolus, and given his worsening oxygenation status, the decision was made to move him to the ICU. Dr. Pacheco contacted Shailesh Carson PA-C to discuss his case. Prior to his transfer to the ICU, a second IV site was obtained and he was started on a second bolus of normal saline. Dr. Marquez, who had seen him earlier in the day, was also contacted at this time for recommendations, and came to bedside at the ICU. Please see the phone counselor's notes for details on management in the ICU. Dr. Pacheco contacted Mr. Mendosa' friend Yanet Anguiano to inform her of his change in status. Martin Reed, PGY-3 Overnight call Results & Data Vital Signs (Past 12 Hours) Vital Signs Temp Pulse Pulse Resp BP Pulse Ox 02/14/19 03:10 88 28 H 90 02/14/19 02:03 93 H 38 H 95 02/14/19 01:10 150 H 74/62 L 91 02/13/19 23:20 95 H 02/13/19 19:24 36.7 C 93 H 16 137/62 91 Resident Activity Tracking Resident Involvement: Touch Up Painter Hand Coverage Note Care Provided: Adult Hospital Medicine
[2019-02-14 05:24] LABS: Hematocrit (blood only) 44.4 % (42-52); Hemoglobin 14.5 g/dL (14.0-18.0); Mean Corpuscular Hemoglobin 28.5 pg (25-34); Mean Corpuscular Volume 87.4 fL (80-100); Mean Platelet Volume 10.7 fL (7.4-10.4); Platelet Count 184 K/uL (130-400); RDW Coefficient of Variation 14.1 % (11.5-14.5); RDW Standard Deviation 44.8 fL (36.4-46.3); Red Blood Count 5.08 M/uL (4.7-6.1); White Blood Count 4.74 K/uL (4.8-10.8)
[2019-02-14 05:25] LABS: Mean Corpuscular Hgb Conc 32.7 g/dL (32-36)
[2019-02-14 05:29] LABS: Base Excess ABG -10.6 mEq/L (-9-1.8); HCO3 ABG 15 mmol/L (19-24); Oxygen Saturation ABG 94.3 % (90-95); PCO2 ABG 32 mmHg (35-46); PO2 ABG 76 mm/Hg (80-95); pH ABG 7.28 (7.35-7.45)
[2019-02-14 05:32] LABS: Allen Test Pos (Pos)
[2019-02-14] MEDS ORDERED: MIDAZOLAM HCL 125MG/250ML D5W ONE (05:49)
[2019-02-14] MEDS: MIDAZOLAM HCL 125 MG/250 ML BAG IV SCH (05:51)
[2019-02-14 05:55] LABS: Albumin Level 2.4 gm/dl (3.4-5.0); BUN Creatinine Ratio 16.4 (10-20); Bilirubin Direct 0.8 mg/dl (0-0.2); Bilirubin,Total 1.7 mg/dl (0.2-1); Calcium 7.2 mg/dl (8.5-10.1); Creatinine Clr Calc Pharmacy 40.5 ml/min; Est GFR (African American) 29.7; Est GFR (Non-African American) 25.7; Magnesium 2.2 mg/dl (1.8-2.4); Phosphorus 3.3 mg/dl (2.5-4.9); Potassium 4.6 mmol/L (3.5-5.1); Total Protein 5.2 gm/dl (6.4-8.2)
[2019-02-14] MEDS ORDERED: ACETAMINOPHEN 1,000 MG/100 ML VIAL IV PRN (06:23)
[2019-02-14 06:24] LABS: Basophils # (auto) 0.01 K/uL (0-0.2); Basophils % (auto) 0.2 %; Echinocytes 2+; Giant Platelets 1+; Immature Granulocytes # (auto) 0.03 K/uL (0.00-0.02); Immature Granulocytes % (auto) 0.6 %; Lymphocytes # (auto) 0.63 K/uL (1.2-3.4); Lymphocytes % (auto) 13.3 %; Monocytes # (auto) 0.26 K/uL (0.11-0.59); Monocytes % (auto) 5.5 %; Neutrophils # (auto) 3.81 K/uL (1.4-6.5); Neutrophils % (auto) 80.4 %
--- NOTE | 2019-02-14 06:52 | XRay Report ---
XR KUB/Abdomen 1 view CLINICAL HISTORY: 58 years-old Male presenting with worsening distention. TECHNIQUE: Single supine view of the abdomen was obtained. COMPARISON: CT of the abdomen and pelvis from yesterday and plain radiograph from 2010. FINDINGS: Mild gaseous distention of the transverse colon and small bowel in the left abdomen. No gross pneumop eritoneum. Allowing for bowel gas and stool, no calcifications to suggest nephrolithiasis. Lumbar fusion hardware noted at L5-S1. IMPRESSION: 1. Mild gaseous distention of small and large bowel. Findings suggest ileus. Continued follow-up adv ised. Electronically signed by: Robbin Gardner M.D. 02/14/2019 6:50 AM
--- NOTE | 2019-02-14 06:54 | XRay Report ---
XR chest 1V portable CLINICAL HISTORY: 58 years-old Male presenting with confirm ng tube placement. TECHNIQUE: Portable upright AP view of the chest was obtained. COMPARISON: 02/13/2019. FINDINGS: Median sternotomy wires. Nasogastric tube has been advanced into the right mainstem bronchus and righ t lower lobe. Subsequent radiograph from 2:46 AM today shows repositioning of the nasogastric tube. Cardiac silhouette mildly enlarged. Bandlike opacity at the left lung base. Trace right effusion may be present. No pneumothorax. Osseous structures normal. Numerous external leads overlie the thorax de grading image quality. IMPRESSION: 1. Nasogastric tube positioned in the right lung. Subsequent radiograph from 2:46 AM today shows rashida ropriate repositioning. 2. Mild cardiomegaly. 3. Left basilar atelectasis or scarring. 4. Possible trace right pleural effusion. Electronically signed by: Robbin Gardner M.D. 02/14/2019 6:53 AM
--- NOTE | 2019-02-14 06:56 | XRay Report ---
XR chest 1V portable CLINICAL HISTORY: 58 years-old Male presenting with post intubation. TECHNIQUE: Portable upright AP view of the chest was obtained. COMPARISON: 02/14/2019 at 12:55 AM. FINDINGS: The nasogastric tube has been repositioned, now descending below the diaphragm, terminus beyond the f [id number]. The patient has been intubated with a endotracheal tube terminating in the midthoracic trachea approximately 3 cm from the alhaji. Median sternotomy wires and prosthetic aortic valve noted . Mild enlargement of the cardiac silhouette as on prior exam. Mild pulmonary vascular prominence. Low lung volumes. Significantly increased bibasilar opacities. Suspected small bilateral pleural effusion s. No pneumothorax. Osseous structures normal. Upper abdomen normal. IMPRESSION: 1. Appropriately repositioned nasogastric tube. 2. Appropriately positioned endotracheal tube. 3. Interval development of bibasilar infiltrates, which could represent aspiration or significant at electasis. Pulmonary edema is also possible though less likely. 4. Cardiomegaly with mild volume overload. 5. Small bilateral pleural effusions. Electronically signed by: Robbin Gardner M.D. 02/14/2019 6:55 AM
[2019-02-14] MEDS ORDERED: CEFEPIME 2,000 MG in SYRINGE 7.5 ML IV SCH (08:00)
[2019-02-14] MEDS ORDERED: MYCOPHENOLATE MOFETIL 250 MG CAP PO SCH (09:00)
[2019-02-14] MEDS ORDERED: lisinopriL 5 MG TAB PO SCH (09:00)
[2019-02-14 09:19] LABS: iSTAT Arterial Blood Gas HCO3 17 meg/L (19-24); iSTAT Arterial Blood Gas pCO2 39 mmHg (35-46); iSTAT Arterial Blood Gas pH 7.24 (7.35-7.45); iSTAT Arterial Blood Gas pO2 165 mmHg (80-95); iSTAT Carbon Dioxide 18 mEq/l (24-31); iSTAT Site Art Line
[2019-02-14] MEDS: PREGABALIN 100 MG CAP PO SCH (09:29)
[2019-02-14] MEDS: PANTOprazole 40 MG TAB PO SCH (09:29)
[2019-02-14] MEDS: PIPERACILLIN/TAZOBACTAM 4.5 GM in DEXTROSE 5% 100 ML IV SCH ×3 (09:35→23:03)
[2019-02-14] MEDS: THIAMINE HCL 200 MG in SODIUM CHLORIDE 0.9% 50 ML IV SCH (09:36)
[2019-02-14 09:48] LABS: BUN Creatinine Ratio 18.1 (10-20); Calcium 7.3 mg/dl (8.5-10.1); Creatinine Clr Calc Pharmacy 35.2 ml/min; Est GFR (African American) 28.8; Est GFR (Non-African American) 24.8; Magnesium 2.2 mg/dl (1.8-2.4); Potassium 4.6 mmol/L (3.5-5.1)
[2019-02-14 10:12] LABS: iSTAT Hematocrit 37 % (42-52); iSTAT Hemoglobin 12.6 g/dl (14.0-18.0); iSTAT Potassium 4.2 mEq/L (3.3-5.0); iSTAT Sodium 148 mEq/L (135-144)
[2019-02-14 10:13] LABS: iSTAT Art Bld Gas pCO2 Correct 39 mmHg (35-46); iSTAT Art Bld Gas pH Corrected 7.158 (7.35-7.45); iSTAT Arterial Bld Gas O2 Sat 95; iSTAT Arterial Blood Gas HCO3 14 meg/L (19-24); iSTAT Arterial Blood Gas pCO2 40 mmHg (35-46); iSTAT Arterial Blood Gas pH 7.15 (7.35-7.45); iSTAT Arterial Blood Gas pO2 94 mmHg (80-95); iSTAT Arterial Blood Gas pO2 C 90; iSTAT Carbon Dioxide 15 mEq/l (24-31)
[2019-02-14 10:14] LABS: Patient Temperature 36.2; iSTAT Sample Type Arterial; iSTAT Site Art Line
[2019-02-14] MEDS ORDERED: CALCIUM GLUCONATE 10% 1,000 MG in SODIUM CHLORIDE 0.9% 50 ML IV STA (10:16)
[2019-02-14 10:20] LABS: Phosphorus 3.4 mg/dl (2.5-4.9); Troponin I 0.143 ng/ml (0-0.045)
[2019-02-14] MEDS ORDERED: fentaNYL citrate 100 MCG/2 ML VIAL IV PRN (10:23)
--- NOTE | 2019-02-14 11:02 | XRay Report ---
KUB HISTORY: Acute generalized abdominal pain abd pain COMPARISON: KUB 02/14/2019 at 12:52 AM FINDINGS: An enteric tube has been placed, distal tip terminating within the abdominal left upper jed drant within the expected location of the mid gastric body. There is persistent gaseous distention of the large and small bowel. No pneumatosis or pneumoperitoneum. No urolith. Fusion hardware of the timbo mbosacral spine redemonstrated. Prior median sternotomy. No acute fracture. A catheter projects over the right inguinal distribution. IMPRESSION: 1. Status post placement of an enteric tube, distal tip terminating in the expected location of the m id gastric body. 2. Persistent gaseous distention of large and small bowel suggestive of probable ileus versus distal obstruction. Electronically signed by: Oni Henson M.D. 02/14/2019 11:01 AM
[2019-02-14] MEDS: fentaNYL DRIP 1,250 MCG/250 ML BAG IV PRN (11:22)
[2019-02-14] MEDS: FAMOTIDINE 20 MG in SYRINGE 3 ML IV SCH (11:29)
[2019-02-14 11:31] LABS: iSTAT Arterial Blood Gas HCO3 16 meg/L (19-24); iSTAT Arterial Blood Gas pCO2 36 mmHg (35-46); iSTAT Arterial Blood Gas pH 7.27 (7.35-7.45); iSTAT Arterial Blood Gas pO2 79 mmHg (80-95); iSTAT Carbon Dioxide 17 mEq/l (24-31); iSTAT Site Art Line
--- NOTE | 2019-02-14 15:41 | Medical Student Progress Note ---
Date of Service February 14, 2019 Assessment & Plan (1) Respiratory failure with hypoxia: Patient is a 58 yo M with a hx of hypertension, hypothyroidism, GERD, Cabrales's esophagus, scleroderma, paroxysmal A. fib, status post aortic valve replacement 10 years ago, and recent fall with rib fracture who presented to the ED with acute abdominal pain and who was admitted and then transferred to the ICU for acute respiratory failure 2/2 aspiration 2/2 emesis in the setting of an ileus. Acute hypoxic respiratory failure 2/2 aspiration 2/2 to emesis in the setting of bowel obstruction -Code blue after admitted to medicine floor requiring emergent endotracheal intubation -Currently admitted to ICU with pressor requirements as below -Continue IV 4.5 gm Piperacillin/Tazobactam Q8H Severe sepsis with Septic shock -Likely secondary to GI pathology -Intubated and sedation under management of ICU team - IVF support, currently on Bicarb 150cc/hr - Levophed at .5mcg/kg/min - Epi at .02mcg/kg/min - Vasopressin ordered, not currently running Ileus -Recent hx of rib fracture needing narcotics possibly contributed -CT abdomen suggestive of enterocolitis with ileus - KUB showed persistent gaseous distention of large and small bowel suggestive of probable ileus versus distal obstruction; multiple rib fractures also noted -Surgery consulted, deferring surgical intervention pending patient stabilization -GI consulted, suspects related to narcotic use in the setting of motility issues due to Scleroderma vs infectious process - advised no indication for colonoscopy at this time - recommended conservative med mgmnt and Ducolax suppository -NG tube in place to low intermittent suction ADRIANO, baseline Cr ~ 1.1-1.2 - Cr uptrending, Cr 3.11 today - Suspect prerenal 2/2 GI loss vs ATN 2/2 sepsis - Conitnue IV fluids, pressor support as above - Monitor Is and Os - BMP daily Demand ischemia -follow troponin. Paroxysmal A. fib -Currently in sinus rhythm -Not on BB or anti-coag at home - Continue ICU tele Hypertension -Lisinopril 5mg held -currently hypotensive in the setting of septic shock and on pressors as above Hypothyroidism -last TSH December 2017 normal at 0.924 -held levothyroxine 100mcg daily for NPO -Synthroid IV 75 mcg levothyroxine until able to tolerate PO Scleroderma/ Diffuse cutaneous systemic sclerosis -managed by [facility] -Continue Dexilant 60 mg BID per GI Prophylaxis: - DVT: Heparin SQ Q12 - Ulcer: famotidine 20mg qAM Code Status: Full FEN: NPO Disp: Ongoing, currently requiring ICU level of care on multiple vasopressors. Present on Admission?: No (2) Acute kidney failure: Present on Admission?: No (3) Metabolic acidemia: Present on Admission?: No (4) Aspiration into airway: Present on Admission?: No (5) Admitted to intensive care unit: Present on Admission?: No (6) Ileus: Present on Admission?: Yes (7) Left rib fracture: Present on Admission?: Yes (8) Abdominal pain: Abdominal location: unspecified location Qualified Code(s): R10.9 - Unspecified abdominal pain Present on Admission?: Yes (9) Paroxysmal atrial fibrillation: Present on Admission?: Yes (10) Cabrales's esophagus: Present on Admission?: Yes (11) Hypertension: Present on Admission?: Yes (12) Hypothyroidism: Present on Admission?: Yes Supervising Attestation Medical student Supervision Note: I independently interviewed and examined the patient and verified the avila history and physical, reviewed labs and image studies, discussed the case with Martha Rose and agree with the findings and care plan. s/p intubation - on vent. continue pressors, broad spectrum abx. ileus ? sec to narcotics - GI and surgery following. Subjective Patient in ICU sedated and unable to communicate at this time Review of Systems Review of Systems: Unobtainable due to sedation Physical Exam Constitutional: + ill appearing and + diaphoretic +sedated Eyes: PERRL, conjunctivae normal, anicteric sclerae Respiratory: + respiratory distress and + tachypneic Auscultation: lungs clear to auscultation bilaterally Cardiovascular: RRR, no murmur, no edema Extremities: normal capillary refill; no edema Gastrointestinal (Abdomen): Inspection/Auscultation: + abdomen distended and + hypoactive bowel sounds; no visible herniation Percussion/Palpation: + abdomen tender, + guarding and + tympanic to percussion Musculoskeletal: Extremities: no cyanosis Results & Data Vital Signs (Past 12 Hours) Vital Signs Temp Pulse Resp BP Pulse Ox 02/14/19 14:30 95 H 87/64 L 95 02/14/19 14:00 95 H 78/57 L 94 02/14/19 13:30 96 H 79/53 L 94 02/14/19 13:27 34 H 02/14/19 13:00 95 H 90/69 L 94 02/14/19 12:30 96 H 91/47 L 94 02/14/19 12:00 96 H 80/54 L 93 02/14/19 11:30 96 H 82/62 L 95 02/14/19 11:27 95 H 31 H 94 02/14/19 11:00 95 H 88/59 L 93 02/14/19 10:30 96 H 94 02/14/19 10:00 96 H 84/61 L 93 02/14/19 09:30 101 H 82/54 L 95 02/14/19 09:05 108 H 96 02/14/19 09:00 102 H 83/57 L 98 02/14/19 08:30 111 H 102/64 98 02/14/19 08:00 39 C H 117 H 92/62 L 97 02/14/19 07:30 122 H 90/59 L 95 02/14/19 07:22 119 H 31 H 93 02/14/19 07:00 120 H 95/66 L 95 02/14/19 06:33 39.5 C H 124 H 99/57 L 95 02/14/19 06:00 109 H 39 H 127/77 96 02/14/19 05:18 95 H 111/74 95 02/14/19 05:03 95 H 110/72 95 02/14/19 05:00 95 H 96 02/14/19 04:48 94 H 116/78 97 02/14/19 04:33 93 H 105/68 96 02/14/19 04:18 93 H 102/58 L 96 02/14/19 04:03 91 H 92/59 L 02/14/19 04:00 36.2 C L 90 02/14/19 03:48 90 83/52 L
--- NOTE | 2019-02-14 15:51 | XRay Report ---
SINGLE VIEW CHEST CLINICAL HISTORY: Central venous catheter placement. FINDINGS: An AP, portable, supine chest radiograph is compared to study dated 02/14/2019. Correlation is made with chest CT dated 08/08/2009. The examination is degraded by portable technique and patient rotation. The patient is status post midline sternotomy and cardiac valve surgery. Endotracheal and enteric tubes are unchanged in position. A left internal jugular central venous catheter has been jack bethel. The tip projects over the SVC. The heart is enlarged. There is pulmonary vascular congestion. Th ere are small pleural effusions with bibasilar consolidation. No pneumothorax is seen. The skeletal s tructures are osteopenic. The bony thorax is grossly intact. IMPRESSION: 1. A left internal jugular central venous catheter has been placed as above. No pneumothorax is seen post procedure. 2. The remaining lines and tubes are stable. 3. Cardiomegaly and mild pulmonary vascular congestion. 4. Small pleural effusions with bibasilar consolidation. Electronically signed by: Jonnathan Hi M.D. 02/14/2019 3:49 PM
[2019-02-14 15:52] LABS: Albumin Level 2.4 gm/dl (3.4-5.0); BUN Creatinine Ratio 16.9 (10-20); Bilirubin Direct 0.6 mg/dl (0-0.2); Calcium 7.2 mg/dl (8.5-10.1); Creatinine Clr Calc Pharmacy 30.2 ml/min; Est GFR (African American) 23.9; Est GFR (Non-African American) 20.7; Potassium 4.8 mmol/L (3.5-5.1)
--- NOTE | 2019-02-14 15:58 | Procedure Note ---
Procedure Note Date of Service February 14, 2019 Procedure date: Noted above Procedure: Central venous access Pre-procedure indication: Need for vasoactive medication administration Post-procedure Diagnosis: same as above Prior to Procedure: Informed Consent: The risks, benefits, indications, potential complications, and alternatives were explained to the the patient's family and informed consent obtained. Attending Staff: Adela Clements DO Resident/APC: Not applicable Skin Prep: Chlorhexidine Anesthesia: 4 mL 1% lidocaine without epinephrine The identity of the patient was confirmed and a bedside time out was performed. Description of Procedure: After sterile prep and sterile drape utilizing standard sterile technique the superficial skin of the left internal jugular area was anesthetized. The target vessel was identified and entered with an 18- gauge needle. Dark venous blood return was noted. A guidewire was inserted through the needle and into the vessel. The needle was withdrawn and a skin carol ann was made. A tissue dilator was advanced via Seldinger technique and removed. A triple lumen catheter was inserted via Seldinger technique and the guidewire removed. All ports patricia and flushed easily. A Biopatch was placed, and the catheter was secured via commercial securement device. A sterile dressing was then applied. Complications: None Estimated blood loss: Trace Patient tolerated the procedure well. Procedure Date: Noted Above Procedure: Procedural Ultrasound Indication: Central venous access Attending: Adela Clements DO Resident/Physician Wait Staff: Not applicable Artery visualized: Yes Vein visualized: Yes Compressible Vein: Yes Vein patent: Yes Guidewire or Short Catheter seen in vein prior to dilation: Yes Line confirmed in Vein with ultrasound: Yes Lung Sliding on side of attempt (if applicable): NA If no lung sliding or not obtained has CXR been ordered: Yes Impression: Successful central venous access placement Images obtained are saved for permanent record Coding CPT Codes Tubes, Drains, and Vasc Access - Tubes, Drains, and Vasc Access: [id number] Insertion of PICC, 5 Yrs> ([id number]) Tubes, Drains, and Vasc Access - Tubes, Drains, and Vasc Access: [id number] Ultrasound Guidance For Vascular ([id number])
[2019-02-14 16:03] LABS: Bilirubin,Total 1.2 mg/dl (0.2-1); Total Protein 5.3 gm/dl (6.4-8.2); Troponin I 0.112 ng/ml (0-0.045)
[2019-02-14] MEDS ORDERED: NORMOSOL-R 500 ML IV ONE (17:02)
[2019-02-14 17:08] LABS: iSTAT Arterial Blood Gas HCO3 18 meg/L (19-24); iSTAT Arterial Blood Gas pCO2 35 mmHg (35-46); iSTAT Arterial Blood Gas pH 7.32 (7.35-7.45); iSTAT Arterial Blood Gas pO2 80 mmHg (80-95); iSTAT Carbon Dioxide 19 mEq/l (24-31); iSTAT Site Art Line
[2019-02-14] MEDS: HEPARIN SOD 5,000 UNIT/0.5 ML VIAL SC SCH (20:06)
[2019-02-14] MEDS: VASOPRESSIN 20 UNITS in 0.9 % SODIUM CHLORIDE 100 ML IV SCH (20:09)
[2019-02-14 20:33] LABS: Calcium 6.7 mg/dl (8.5-10.1); Creatinine Clr Calc Pharmacy 26.6 ml/min; Est GFR (African American) 20.5; Est GFR (Non-African American) 17.7; Magnesium 1.9 mg/dl (1.8-2.4); Potassium 4.9 mmol/L (3.5-5.1)
[2019-02-14 21:04] LABS: Phosphorus 4.7 mg/dl (2.5-4.9)
[2019-02-14] MEDS: FENTANYL BOLUS FROM BAG IV PRN ×2 (21:45→22:50)
[2019-02-14] MEDS ORDERED: ROCURONIUM BROMIDE 10 MG/ML 10 ML VIAL IV ONE (23:34)
[2019-02-14] MEDS ORDERED: SUCCINYLCHOLINE CHLORIDE 20 MG/ML 10 ML VIAL IV ONE (23:34)
[2019-02-14] MEDS ORDERED: ETOMIDATE 2 MG/ML 20 ML VIAL IV ONE (23:34)
[2019-02-14] MEDS ORDERED: MIDAZOLAM HCL 5 MG/ML VIAL IV ONE (23:34)
[2019-02-14] MEDS ORDERED: KETAMINE HCL INJ 50 MG/ML 10 ML VIAL IV ONE (23:34)
[2019-02-14 23:36] LABS: iSTAT Arterial Blood Gas HCO3 19 meg/L (19-24); iSTAT Arterial Blood Gas pCO2 34 mmHg (35-46); iSTAT Arterial Blood Gas pH 7.35 (7.35-7.45); iSTAT Arterial Blood Gas pO2 76 mmHg (80-95); iSTAT Carbon Dioxide 20 mEq/l (24-31); iSTAT Site Art Line
[2019-02-15] MEDS: NOREPINEPHRINE BIT INJ 16 MG in DEXTROSE 5% 500 ML IV SCH ×3 (00:33→17:48)
[2019-02-15] MEDS: SILODOSIN 8 MG SCH ×3 (00:34→10:02)
[2019-02-15] MEDS: VASOPRESSIN 20 UNITS in 0.9 % SODIUM CHLORIDE 100 ML IV SCH ×4 (02:09→19:02)
[2019-02-15] MEDS: SODIUM BICARBONATE 8.4% 150 MEQ in DEXTROSE 5% 1,000 ML IV SCH ×2 (02:09→09:35)
[2019-02-15 02:51] LABS: BUN Creatinine Ratio 15.1 (10-20); Calcium 6.4 mg/dl (8.5-10.1); Creatinine Clr Calc Pharmacy 23.3 ml/min; Est GFR (African American) 17.5; Est GFR (Non-African American) 15.1; Magnesium 1.9 mg/dl (1.8-2.4); Phosphorus 5.2 mg/dl (2.5-4.9); Potassium 5.7 mmol/L (3.5-5.1)
[2019-02-15] MEDS ORDERED: DEXTROSE 50% 50 ML SYRINGE IV ONE ×2 (03:30→23:34)
[2019-02-15] MEDS ORDERED: INSULIN HUMAN REGULAR PER UNIT 10 UNITS in SYRINGE 9.9 ML IV ONE (03:30)
[2019-02-15] MEDS ORDERED: CALCIUM CHLORIDE 10% 1,000 MG in SODIUM CHLORIDE 0.9% 50 ML IV ONE ×2 (03:30→21:15)
[2019-02-15 04:17] LABS: Hematocrit (blood only) 34.7 % (42-52); Hemoglobin 11.5 g/dL (14.0-18.0); Mean Corpuscular Hemoglobin 28.3 pg (25-34); Mean Corpuscular Hgb Conc 33.1 g/dL (32-36); Mean Corpuscular Volume 85.3 fL (80-100); Platelet Count 121 K/uL (130-400); RDW Coefficient of Variation 14.2 % (11.5-14.5); RDW Standard Deviation 44.1 fL (36.4-46.3); Red Blood Count 4.07 M/uL (4.7-6.1); White Blood Count 9.58 K/uL (4.8-10.8)
[2019-02-15 04:24] LABS: INR 1.8 (0.9-1.1); Prothrombin Time 17.8 Seconds (9.0-12.0)
[2019-02-15] MEDS: fentaNYL DRIP 1,250 MCG/250 ML BAG IV PRN (04:31)
[2019-02-15 04:54] LABS: Basophils # (auto) 0.01 K/uL (0-0.2); Basophils % (auto) 0.1 %; Echinocytes 2+; Immature Granulocytes # (auto) 0.06 K/uL (0.00-0.02); Immature Granulocytes % (auto) 0.6 %; Lymphocytes # (auto) 0.43 K/uL (1.2-3.4); Lymphocytes % (auto) 4.5 %; Monocytes # (auto) 0.03 K/uL (0.11-0.59); Monocytes % (auto) 0.3 %; Neutrophils # (auto) 9.05 K/uL (1.4-6.5); Neutrophils % (auto) 94.5 %; Toxic Granulation 1+; Toxic Vacuolation 2+
[2019-02-15 05:00] LABS: Albumin Level 1.3 gm/dl (3.4-5.0); BUN Creatinine Ratio 16.5 (10-20); Bilirubin,Total 0.9 mg/dl (0.2-1); Calcium 5.9 mg/dl (8.5-10.1); Creatinine Clr Calc Pharmacy 29.9 ml/min; Est GFR (African American) 23.7; Est GFR (Non-African American) 20.4; Magnesium 1.4 mg/dl (1.8-2.4); Total Protein 3.6 gm/dl (6.4-8.2)
[2019-02-15 05:09] LABS: Phosphorus 4.1 mg/dl (2.5-4.9)
[2019-02-15 05:10] LABS: Potassium 3.8 mmol/L (3.5-5.1)
[2019-02-15 05:30] LABS: iSTAT Arterial Blood Gas HCO3 21 meg/L (19-24); iSTAT Arterial Blood Gas pCO2 39 mmHg (35-46); iSTAT Arterial Blood Gas pH 7.33 (7.35-7.45); iSTAT Arterial Blood Gas pO2 75 mmHg (80-95); iSTAT Carbon Dioxide 22 mEq/l (24-31); iSTAT Site Art Line
[2019-02-15] MEDS: HYDROCORTISONE SOD 100 MG in SYRINGE 0 ML IV SCH ×2 (05:36→10:02)
[2019-02-15] MEDS: LEVOTHYROXINE SODIUM 100 MCG TABLET PO SCH (05:47)
[2019-02-15 05:59] LABS: Magnesium 1.8 mg/dl (1.8-2.4); Potassium 4.8 mmol/L (3.5-5.1)
--- NOTE | 2019-02-15 06:24 | Surgery Progress Note ---
Date of Service February 15, 2019 Assessment & Plan (1) Ileus: Hemodynamically the patient has slightly improved and his pulmonary function is stable His renal function is poor and there will likely be some discussion of possible hemodialysis with an elevated potassium He may benefit from decompression of his abdomen which would likely be left open operation/likely wound VAC My concern would be that he may arrest in the operating room We will discuss with anesthesia ahead of time to see what their thoughts may be Continue to follow the patient closely Subjective Patient continues on ventilator and seems to be oxygenating well. His blood pressure has improved and he is off the epi on on Levophed and his pulse is stable His urine output is minimal and his renal function is poor Physical Exam Physical Exam: His heart rate and blood pressure are relatively stable on some pressure support Constitutional: + ill appearing; no acute distress On the ventilator Gastrointestinal (Abdomen): His abdomen is distended and firm does not appear to have peritoneal signs He has minimal bowel sounds Skin: No rashes Neurologic: Sedated Results & Data Vital Signs (Past 12 Hours) Vital Signs Pulse Resp BP Pulse Ox 02/15/19 05:45 93 H 24 93 02/15/19 05:00 94 H 93 02/15/19 04:00 91 H 92 02/15/19 03:05 93 H 24 93 02/15/19 03:00 90 91 02/15/19 02:00 93 H 94 02/15/19 01:49 93 H 24 93 02/15/19 01:00 94 H 94 02/15/19 00:00 96 H 95 02/14/19 23:28 97 H 27 H 95 02/14/19 23:00 97 H 96/71 L 95 02/14/19 22:00 96 H 111/86 93 02/14/19 21:00 96 H 96/62 L 96 02/14/19 20:14 96 H 31 H 94 02/14/19 20:00 97 H 94 02/14/19 19:00 97 H 96/62 L 95 PG Care Time/CCT Total # of Minutes Spent Total Time Spent with Patient: Total time spent is greater than 50% in coordination of care (as documented) at patient's floor/unit and/or counseling patient:
--- NOTE | 2019-02-15 07:19 | XRay Report ---
XR chest 1V portable CLINICAL HISTORY: 58 years-old Male presenting with f/u. TECHNIQUE: Portable upright AP view of the chest was obtained. COMPARISON: 02/14/2019. FINDINGS: Endotracheal tube terminates in the upper thoracic trachea approximately 5 cm from the alhaji. Left i nternal jugular central venous catheter terminates in the lower SVC. Nasogastric tube descends below the diaphragm, terminus not visualized. Numerous external leads overlie the thorax. Median sternotomy wires and prosthetic aortic valve noted. Cardiac silhouette moderately enlarged. Pu lmonary vascular prominence as on prior exam. Low lung volumes, which have slightly worsened since pr ior exam. Persistent if not increased bibasilar opacities. Trace pleural effusions may be present. No large pneumothorax. Osseous structures normal. Upper abdomen normal. IMPRESSION: 1. Cardiomegaly with volume overload. 2. Increased bibasilar atelectasis with worsened lung volumes. 3. Trace bilateral pleural effusions may be present. 4. Appropriately positioned lines and tubes. ACT 112: Negative or not required by law. Electronically signed by: Robbin Gardner M.D. 02/15/2019 7:18 AM
--- NOTE | 2019-02-15 08:34 | Critical Care Progress Note ---
Date of Service February 15, 2019 Assessment & Plan (1) Admitted to intensive care unit: Reason Critically Ill: 58-year-old male in acute hypoxic respiratory distress secondary to aspiration event requiring emergent endotracheal intubation for airway protection and oxygenation status. NEURO - CAM ICU: Unable to assess secondary to intubation Sedation: Versed drip Pain: Dilaudid as needed CARDIAC/VASCULAR - Asystolic cardiac arrest status post successful resuscitation: Patient with increasing pauses. Per his record, he did have a history of high- grade AV block with concerns for Mobitz type II in the past. He is been evaluated for pacemaker placement. -Echo showed normal LV size mild LVH, ejection fraction 40 to 45%, basal to mid inferior severe hypokinesis, abnormal septal motion consistent with conduction abnormality. Well-functioning bioprosthetic aVR. Compared to prior study on 02/11/2017 LV dysfunction, wall motion abnormality is new -Tropes peaked at 0.112 -Electrolytes within normal limits History of aortic valve replacement in the setting of bicuspid aortic valve. -Echo demonstrated well-functioning bioprosthetic aortic valve Hypertension: -Hold current medications in the setting of sepsis -Monitor on telemetry. RESPIRATORY - Acute hypoxic respiratory failure: Likely secondary to aspiration event.Requiring endotracheal intubation. -On ventilator, wean as tolerated -DC'd vancomycin is likely not respiratory -Continue Zosyn GI/NUTRITION - Ileus: Presented with ileus now with intense vomiting of fecal-like material and Increasing serum lactate. General surgery involved without change in abdominal exam. -NG tube in place -Surgery consulted following the recommendations -May benefit from decompression of the abdomen, however will likely require surgical site to be left open with a wound VAC. -Poor surgical candidate concerns for arrest during seizure RENAL/LYTES - ADRIANO: Impressive decline in renal function despite IV fluids administered throughout stay. Was aggressively resuscitated to match GI losses. Creatinine continues to worsen thought to be secondary to underlying sepsis. -CR:3.53->4.03->3.14->4.40 -Continue to trend BMP every 6 hours, lactate every 6 hours, mag every 6 hours, phosphorus every 6 hours -Unfortunately if this patient's kidney function continues to worsen will likely need dialysis. Will need to clarify with patient's family if this is consistent with his wishes -Patient is a full code Hyperkalemia: Likely secondary to above. Currently on bicarb drip. 150 M EQ's running at 150 mL/h Will continue treat appropriately. - Roldan in place - Strict I&Os. ENDO - No history of diabetes. -BSGs per unit protocol. ISS --> gtt per unit policy. Hypothyroidism -Consider transitioning to IV pending current course. -Holding CellCept -Solu-Medrol 100 mg IV every 8 hours HEME - Stable H&H. ID - Severe sepsis with septic shock: Multifactorial, pulmonary source unlikely however possible most likely secondary to intra-abdominal process. -DC'd vancomycin -Continue Zosyn -Cultures demonstrate no growth to date -Most recent pro Mauricio 117 continue to trend -Lactate:7.6->6.3->3.9->3.3->4.0->3.6->3.4->3.0->2.6-> -Downtrending LINES/IV ACCESS - PIVs x2 RIGHT femoral central line. RIGHT radial arterial line. Roldan catheter ET tube DVT PROPHYLAXIS - SCDs dispo: ICU Thank you for allowing us to participate in the care of this patient. Please refer to my attending physician's documentation for any further recommendations. 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 Pacheco was resident physician during care of patient. I separately evaluated patient for avila portions of the history and the exam. I was present during the critical portion of medical decision making, and I discussed the case with the resident. I generally agree with the findings and plan. Patient was discussed on multidisciplinary rounds. I discussed the case individually with Dr. Marquez with regards to surgery as well as Dr. Klein with regards to worsening renal function. Repeat laboratory analysis does not appear to support hemophagocytic histiocytosis, liver enzymes are mildly elevated, LDH is mildly elevated. The lactic acid was improving and now has mildly climbed to 3.8. Patient's creatinine continues to climb. In discussion with nephrology and the patient's family consensus is to proceed with transfer to tertiary care center for dialysis versus [facility]. The patient has previously had significant pauses and most recently cardiac arrest in the setting of con commitment hyperkalemia. At this time there is significant weather precluding transfer to [facility], [facility] is accepting in transfer, the flight crew's are unavailable due to weather considerations. In discussion with the family considering ground transfer versus transfer [place] a [place], it is felt her she provides higher level of care including surgical services versus transfer to any other facility that may have emergent dialysis services, those other facilities largely do not have subspecialty surgical services nor are they closer. Subjective Patient laying in bed intubated and sedated, interval history difficult to obtain secondary to intubated status. No acute events overnight per nursing. Patient is improving from a clinical standpoint, abdomen less tender, less distended. Concerns at present relate to potential need for surgery and whether or not the patient will need to be transferred for CRRT, questions answered. Physical Exam Physical Exam: General: Elderly gentleman lying in bed, intubated and sedated. HEENT: Normocephalic atraumatic Neck: Normal to visual inspection, negative JVD Cardiac: Regular rate and rhythm, I did not appreciate any murmurs rubs or gallops. Normal S1, normal S2. 1+ pedal edema bilaterally. Respiratory: Intubated, coarse breath sounds bilaterally GI: Distended abdomen, less so than yesterday, normal active bowel sounds MSK: Unable to assess secondary to intubation Skin: No concerns at present Neuro: Responds to external stimuli Psych: Unable to assess secondary to intubation Results & Data Vital Signs (Past 12 Hours) Vital Signs Pulse Resp BP Pulse Ox 02/15/19 07:20 94 H 24 95 02/15/19 05:45 93 H 24 93 02/15/19 05:00 94 H 93 02/15/19 04:00 91 H 92 02/15/19 03:05 93 H 24 93 02/15/19 03:00 90 91 02/15/19 02:00 93 H 94 02/15/19 01:49 93 H 24 93 02/15/19 01:00 94 H 94 02/15/19 00:00 96 H 95 02/14/19 23:28 97 H 27 H 95 02/14/19 23:00 97 H 96/71 L 95 02/14/19 22:00 96 H 111/86 93 02/14/19 21:00 96 H 96/62 L 96 Laboratory Results 02/15/19 02/15/19 02/15/19 Range/Units 05:13 05:07 05:07 WBC (4.8-10.8) K/uL RBC (4.7-6.1) M/uL Hgb (14.0-18.0) g/dL POC Hgb (14.0-18.0) g/dl Hct (42-52) % POC Hct (42-52) % MCV (80-100) fL MCH (25-34) pg MCHC (32-36) g/dL RDW Std Deviation (36.4-46.3) fL RDW Coeff of Jalen (11.5-14.5) % Plt Count (130-400) K/uL MPV (7.4-10.4) fL Immature Gran % (Auto) % Neut % (Auto) % Lymph % (Auto) % [place] % (Auto) % Eos % (Auto) % Baso % (Auto) % Immature Gran # (Auto) (0.00-0.02) K/uL Neut # (Auto) (1.4-6.5) K/uL Lymph # (Auto) (1.2-3.4) K/uL [place] # (Auto) (0.11-0.59) K/uL Eos # (Auto) (0-0.5) K/uL Baso # (Auto) (0-0.2) K/uL Toxic Granulation Toxic Vacuolation Echinocytes PT (9.0-12.0) Seconds INR (0.9-1.1) Fibrin Degrad Products (<10) mcg/ml Specimen Type Sample Site Art Line Patient Temperature POC pH 7.33 L (7.35-7.45) POC pCO2 39 (35-46) mmHg POC pO2 75 L (80-95) mmHg POC HCO3 21 (19-24) john/L POC Total CO2 22 L (24-31) mEq/l POC Base Excess -5.0 (-9-1.8) john/L POC O2 Saturation ABG pH (Temp Correct) (7.35-7.45) ABG pCO2 (Temp Corrct (35-46) mmHg POC ABG pO2 at Pt Temp POC ABG O2 Sat 94.0 (90-95) % Zaki Test NA O2 Delivery Device Ventilator POC O2 Rate 24 Minute Ventilation 12 Vent Mode Tidal Volume 500 End Tidal CO2 PEEP 5 POC Sodium (135-144) mEq/L Sodium (136-145) mmol/L POC Potassium (3.3-5.0) mEq/L Potassium 4.8 D (3.5-5.1) mmol/L Chloride (98-107) mmol/L Carbon Dioxide (21-32) mmol/L Anion Gap (3-11) BUN (7-18) mg/dl Creatinine (0.6-1.4) mg/dl Est Cr Clr Drug Dosing ml/min Est GFR ( Amer) Est GFR (Non-Af Amer) BUN/Creatinine Ratio (10-20) Glucose (70-99) mg/dl Lactate (0.4-2.0) mmol/L Calcium (8.5-10.1) mg/dl Ionized Calcium (1.12-1.32) mmol/L Phosphorus (2.5-4.9) mg/dl Magnesium 1.8 (1.8-2.4) mg/dl Ferritin (8-388) ng/ml Total Bilirubin (0.2-1) mg/dl Direct Bilirubin 0.7 H (0-0.2) mg/dl AST (15-37) U/L ALT (12-78) U/L Alkaline Phosphatase (45-117) U/L Lactate Dehydrogenase (87-241) U/L Total Creatine Kinase (39-308) U/L Troponin I (0-0.045) ng/ml Total Protein (6.4-8.2) gm/dl Albumin (3.4-5.0) gm/dl Procalcitonin (0-0.5) ng/ml Specimen Hemolysis 02/15/19 02/15/19 02/15/19 Range/Units 04:05 04:00 04:00 WBC (4.8-10.8) K/uL RBC (4.7-6.1) M/uL Hgb (14.0-18.0) g/dL POC Hgb (14.0-18.0) g/dl Hct (42-52) % POC Hct (42-52) % MCV (80-100) fL MCH (25-34) pg MCHC (32-36) g/dL RDW Std Deviation (36.4-46.3) fL RDW Coeff of Jalen (11.5-14.5) % Plt Count (130-400) K/uL MPV (7.4-10.4) fL Immature Gran % (Auto) % Neut % (Auto) % Lymph % (Auto) % [place] % (Auto) % Eos % (Auto) % Baso % (Auto) % Immature Gran # (Auto) (0.00-0.02) K/uL Neut # (Auto) (1.4-6.5) K/uL Lymph # (Auto) (1.2-3.4) K/uL [place] # (Auto) (0.11-0.59) K/uL Eos # (Auto) (0-0.5) K/uL Baso # (Auto) (0-0.2) K/uL Toxic Granulation Toxic Vacuolation Echinocytes PT (9.0-12.0) Seconds INR (0.9-1.1) Fibrin Degrad Products (<10) mcg/ml Specimen Type Sample Site Patient Temperature POC pH (7.35-7.45) POC pCO2 (35-46) mmHg POC pO2 (80-95) mmHg POC HCO3 (19-24) john/L POC Total CO2 (24-31) mEq/l POC Base Excess (-9-1.8) john/L POC O2 Saturation ABG pH (Temp Correct) (7.35-7.45) ABG pCO2 (Temp Corrct (35-46) mmHg POC ABG pO2 at Pt Temp POC ABG O2 Sat (90-95) % Zaki Test O2 Delivery Device POC O2 Rate Minute Ventilation Vent Mode Tidal Volume End Tidal CO2 PEEP POC Sodium (135-144) mEq/L Sodium (136-145) mmol/L POC Potassium (3.3-5.0) mEq/L Potassium (3.5-5.1) mmol/L Chloride (98-107) mmol/L Carbon Dioxide (21-32) mmol/L Anion Gap (3-11) BUN (7-18) mg/dl Creatinine (0.6-1.4) mg/dl Est Cr Clr Drug Dosing ml/min Est GFR ( Amer) Est GFR (Non-Af Amer) BUN/Creatinine Ratio (10-20) Glucose (70-99) mg/dl Lactate 3.0 H* (0.4-2.0) mmol/L Calcium (8.5-10.1) mg/dl Ionized Calcium (1.12-1.32) mmol/L Phosphorus (2.5-4.9) mg/dl Magnesium (1.8-2.4) mg/dl Ferritin (8-388) ng/ml Total Bilirubin (0.2-1) mg/dl Direct Bilirubin (0-0.2) mg/dl AST (15-37) U/L ALT (12-78) U/L Alkaline Phosphatase (45-117) U/L Lactate Dehydrogenase (87-241) U/L Total Creatine Kinase (39-308) U/L Troponin I 0.040 (0-0.045) ng/ml Total Protein (6.4-8.2) gm/dl Albumin (3.4-5.0) gm/dl Procalcitonin 117.39 H (0-0.5) ng/ml Specimen Hemolysis 02/15/19 02/15/19 02/15/19 Range/Units 04:00 04:00 04:00 WBC 9.58 (4.8-10.8) K/uL RBC 4.07 L (4.7-6.1) M/uL Hgb 11.5 L D (14.0-18.0) g/dL POC Hgb (14.0-18.0) g/dl Hct 34.7 L (42-52) % POC Hct (42-52) % MCV 85.3 (80-100) fL MCH 28.3 (25-34) pg MCHC 33.1 (32-36) g/dL RDW Std Deviation 44.1 (36.4-46.3) fL RDW Coeff of Jalen 14.2 (11.5-14.5) % Plt Count 121 L (130-400) K/uL MPV 11.0 H (7.4-10.4) fL Immature Gran % (Auto) 0.6 % Neut % (Auto) 94.5 % Lymph % (Auto) 4.5 % [place] % (Auto) 0.3 % Eos % (Auto) 0.0 % Baso % (Auto) 0.1 % Immature Gran # (Auto) 0.06 H (0.00-0.02) K/uL Neut # (Auto) 9.05 H (1.4-6.5) K/uL Lymph # (Auto) 0.43 L (1.2-3.4) K/uL [place] # (Auto) 0.03 L (0.11-0.59) K/uL Eos # (Auto) 0.00 (0-0.5) K/uL Baso # (Auto) 0.01 (0-0.2) K/uL Toxic Granulation 1+ Toxic Vacuolation 2+ Echinocytes 2+ PT 17.8 H (9.0-12.0) Seconds INR 1.8 H (0.9-1.1) Fibrin Degrad Products (<10) mcg/ml Specimen Type Sample Site Patient Temperature POC pH (7.35-7.45) POC pCO2 (35-46) mmHg POC pO2 (80-95) mmHg POC HCO3 (19-24) john/L POC Total CO2 (24-31) mEq/l POC Base Excess (-9-1.8) john/L POC O2 Saturation ABG pH (Temp Correct) (7.35-7.45) ABG pCO2 (Temp Corrct (35-46) mmHg POC ABG pO2 at Pt Temp POC ABG O2 Sat (90-95) % Zaki Test O2 Delivery Device POC O2 Rate Minute Ventilation Vent Mode Tidal Volume End Tidal CO2 PEEP POC Sodium (135-144) mEq/L Sodium 140 (136-145) mmol/L POC Potassium (3.3-5.0) mEq/L Potassium 3.8 D (3.5-5.1) mmol/L Chloride 116 H (98-107) mmol/L Carbon Dioxide 20 L (21-32) mmol/L Anion Gap 4.0 (3-11) BUN 52 H (7-18) mg/dl Creatinine 3.14 H D (0.6-1.4) mg/dl Est Cr Clr Drug Dosing 29.9 ml/min Est GFR ( Amer) 23.7 Est GFR (Non-Af Amer) 20.4 BUN/Creatinine Ratio 16.5 (10-20) Glucose 220 H (70-99) mg/dl Lactate (0.4-2.0) mmol/L Calcium 5.9 L* (8.5-10.1) mg/dl Ionized Calcium (1.12-1.32) mmol/L Phosphorus 4.1 D (2.5-4.9) mg/dl Magnesium 1.4 L (1.8-2.4) mg/dl Ferritin (8-388) ng/ml Total Bilirubin 0.9 (0.2-1) mg/dl Direct Bilirubin (0-0.2) mg/dl AST 103 H (15-37) U/L ALT 72 (12-78) U/L Alkaline Phosphatase 64 (45-117) U/L Lactate Dehydrogenase (87-241) U/L Total Creatine Kinase 184 (39-308) U/L Troponin I (0-0.045) ng/ml Total Protein 3.6 L D (6.4-8.2) gm/dl Albumin 1.3 L (3.4-5.0) gm/dl Procalcitonin (0-0.5) ng/ml Specimen Hemolysis 02/15/19 02/15/19 02/15/19 Range/Units 02:09 02:09 02:07 WBC (4.8-10.8) K/uL RBC (4.7-6.1) M/uL Hgb (14.0-18.0) g/dL POC Hgb (14.0-18.0) g/dl Hct (42-52) % POC Hct (42-52) % MCV (80-100) fL MCH (25-34) pg MCHC (32-36) g/dL RDW Std Deviation (36.4-46.3) fL RDW Coeff of Jalen (11.5-14.5) % Plt Count (130-400) K/uL MPV (7.4-10.4) fL Immature Gran % (Auto) % Neut % (Auto) % Lymph % (Auto) % [place] % (Auto) % Eos % (Auto) % Baso % (Auto) % Immature Gran # (Auto) (0.00-0.02) K/uL Neut # (Auto) (1.4-6.5) K/uL Lymph # (Auto) (1.2-3.4) K/uL [place] # (Auto) (0.11-0.59) K/uL Eos # (Auto) (0-0.5) K/uL Baso # (Auto) (0-0.2) K/uL Toxic Granulation Toxic Vacuolation Echinocytes PT (9.0-12.0) Seconds INR (0.9-1.1) Fibrin Degrad Products (<10) mcg/ml Specimen Type Sample Site Patient Temperature POC pH (7.35-7.45) POC pCO2 (35-46) mmHg POC pO2 (80-95) mmHg POC HCO3 (19-24) john/L POC Total CO2 (24-31) mEq/l POC Base Excess (-9-1.8) john/L POC O2 Saturation ABG pH (Temp Correct) (7.35-7.45) ABG pCO2 (Temp Corrct (35-46) mmHg POC ABG pO2 at Pt Temp POC ABG O2 Sat (90-95) % Zaki Test O2 Delivery Device POC O2 Rate Minute Ventilation Vent Mode Tidal Volume End Tidal CO2 PEEP POC Sodium (135-144) mEq/L Sodium 136 (136-145) mmol/L POC Potassium (3.3-5.0) mEq/L Potassium 5.7 H D (3.5-5.1) mmol/L Chloride 106 (98-107) mmol/L Carbon Dioxide 22 (21-32) mmol/L Anion Gap 8.0 (3-11) BUN 61 H (7-18) mg/dl Creatinine 4.03 H D (0.6-1.4) mg/dl Est Cr Clr Drug Dosing 23.3 ml/min Est GFR ( Amer) 17.5 Est GFR (Non-Af Amer) 15.1 BUN/Creatinine Ratio 15.1 (10-20) Glucose 176 H (70-99) mg/dl Lactate 3.4 H* (0.4-2.0) mmol/L Calcium 6.4 L (8.5-10.1) mg/dl Ionized Calcium 0.87 L (1.12-1.32) mmol/L Phosphorus 5.2 H (2.5-4.9) mg/dl Magnesium 1.9 (1.8-2.4) mg/dl Ferritin (8-388) ng/ml Total Bilirubin (0.2-1) mg/dl Direct Bilirubin (0-0.2) mg/dl AST (15-37) U/L ALT (12-78) U/L Alkaline Phosphatase (45-117) U/L Lactate Dehydrogenase (87-241) U/L Total Creatine Kinase (39-308) U/L Troponin I (0-0.045) ng/ml Total Protein (6.4-8.2) gm/dl Albumin (3.4-5.0) gm/dl Procalcitonin (0-0.5) ng/ml Specimen Hemolysis 02/14/19 02/14/19 02/14/19 Range/Units 23:17 20:35 20:07 WBC (4.8-10.8) K/uL RBC (4.7-6.1) M/uL Hgb (14.0-18.0) g/dL POC Hgb (14.0-18.0) g/dl Hct (42-52) % POC Hct (42-52) % MCV (80-100) fL MCH (25-34) pg MCHC (32-36) g/dL RDW Std Deviation (36.4-46.3) fL RDW Coeff of Jalen (11.5-14.5) % Plt Count (130-400) K/uL MPV (7.4-10.4) fL Immature Gran % (Auto) % Neut % (Auto) % Lymph % (Auto) % [place] % (Auto) % Eos % (Auto) % Baso % (Auto) % Immature Gran # (Auto) (0.00-0.02) K/uL Neut # (Auto) (1.4-6.5) K/uL Lymph # (Auto) (1.2-3.4) K/uL [place] # (Auto) (0.11-0.59) K/uL Eos # (Auto) (0-0.5) K/uL Baso # (Auto) (0-0.2) K/uL Toxic Granulation Toxic Vacuolation Echinocytes PT (9.0-12.0) Seconds INR (0.9-1.1) Fibrin Degrad Products (<10) mcg/ml Specimen Type Sample Site Art Line Patient Temperature POC pH 7.35 (7.35-7.45) POC pCO2 34 L (35-46) mmHg POC pO2 76 L (80-95) mmHg POC HCO3 19 (19-24) john/L POC Total CO2 20 L (24-31) mEq/l POC Base Excess -7.0 (-9-1.8) john/L POC O2 Saturation ABG pH (Temp Correct) (7.35-7.45) ABG pCO2 (Temp Corrct (35-46) mmHg POC ABG pO2 at Pt Temp POC ABG O2 Sat 95.0 (90-95) % Zaki Test NA O2 Delivery Device Ventilator POC O2 Rate 24 Minute Ventilation 12 Vent Mode Tidal Volume 500 End Tidal CO2 PEEP 5 POC Sodium (135-144) mEq/L Sodium (136-145) mmol/L POC Potassium (3.3-5.0) mEq/L Potassium (3.5-5.1) mmol/L Chloride (98-107) mmol/L Carbon Dioxide (21-32) mmol/L Anion Gap (3-11) BUN (7-18) mg/dl Creatinine (0.6-1.4) mg/dl Est Cr Clr Drug Dosing ml/min Est GFR ( Amer) Est GFR (Non-Af Amer) BUN/Creatinine Ratio (10-20) Glucose (70-99) mg/dl Lactate 3.6 H* (0.4-2.0) mmol/L Calcium (8.5-10.1) mg/dl Ionized Calcium 0.92 L (1.12-1.32) mmol/L Phosphorus (2.5-4.9) mg/dl Magnesium (1.8-2.4) mg/dl Ferritin (8-388) ng/ml Total Bilirubin (0.2-1) mg/dl Direct Bilirubin (0-0.2) mg/dl AST (15-37) U/L ALT (12-78) U/L Alkaline Phosphatase (45-117) U/L Lactate Dehydrogenase (87-241) U/L Total Creatine Kinase (39-308) U/L Troponin I (0-0.045) ng/ml Total Protein (6.4-8.2) gm/dl Albumin (3.4-5.0) gm/dl Procalcitonin (0-0.5) ng/ml Specimen Hemolysis 02/14/19 02/14/19 02/14/19 Range/Units 20:07 17:20 17:20 WBC (4.8-10.8) K/uL RBC (4.7-6.1) M/uL Hgb (14.0-18.0) g/dL POC Hgb (14.0-18.0) g/dl Hct (42-52) % POC Hct (42-52) % MCV (80-100) fL MCH (25-34) pg MCHC (32-36) g/dL RDW Std Deviation (36.4-46.3) fL RDW Coeff of Jalen (11.5-14.5) % Plt Count (130-400) K/uL MPV (7.4-10.4) fL Immature Gran % (Auto) % Neut % (Auto) % Lymph % (Auto) % [place] % (Auto) % Eos % (Auto) % Baso % (Auto) % Immature Gran # (Auto) (0.00-0.02) K/uL Neut # (Auto) (1.4-6.5) K/uL Lymph # (Auto) (1.2-3.4) K/uL [place] # (Auto) (0.11-0.59) K/uL Eos # (Auto) (0-0.5) K/uL Baso # (Auto) (0-0.2) K/uL Toxic Granulation Toxic Vacuolation Echinocytes PT (9.0-12.0) Seconds INR (0.9-1.1) Fibrin Degrad Products (<10) mcg/ml Specimen Type Sample Site Patient Temperature POC pH (7.35-7.45) POC pCO2 (35-46) mmHg POC pO2 (80-95) mmHg POC HCO3 (19-24) john/L POC Total CO2 (24-31) mEq/l POC Base Excess (-9-1.8) john/L POC O2 Saturation ABG pH (Temp Correct) (7.35-7.45) ABG pCO2 (Temp Corrct (35-46) mmHg POC ABG pO2 at Pt Temp POC ABG O2 Sat (90-95) % Zaki Test O2 Delivery Device POC O2 Rate Minute Ventilation Vent Mode Tidal Volume End Tidal CO2 PEEP POC Sodium (135-144) mEq/L Sodium 140 (136-145) mmol/L POC Potassium (3.3-5.0) mEq/L Potassium 4.9 (3.5-5.1) mmol/L Chloride 110 H (98-107) mmol/L Carbon Dioxide 19 L (21-32) mmol/L Anion Gap 11.0 (3-11) BUN 56 H (7-18) mg/dl Creatinine 3.53 H D (0.6-1.4) mg/dl Est Cr Clr Drug Dosing 26.6 ml/min Est GFR ( Amer) 20.5 Est GFR (Non-Af Amer) 17.7 BUN/Creatinine Ratio 16.0 (10-20) Glucose 159 H (70-99) mg/dl Lactate (0.4-2.0) mmol/L Calcium 6.7 L (8.5-10.1) mg/dl Ionized Calcium (1.12-1.32) mmol/L Phosphorus 4.7 D (2.5-4.9) mg/dl Magnesium 1.9 (1.8-2.4) mg/dl Ferritin 247.7 (8-388) ng/ml Total Bilirubin (0.2-1) mg/dl Direct Bilirubin (0-0.2) mg/dl AST (15-37) U/L ALT (12-78) U/L Alkaline Phosphatase (45-117) U/L Lactate Dehydrogenase 385 H (87-241) U/L Total Creatine Kinase (39-308) U/L Troponin I (0-0.045) ng/ml Total Protein (6.4-8.2) gm/dl Albumin (3.4-5.0) gm/dl Procalcitonin (0-0.5) ng/ml Specimen Hemolysis 02/14/19 02/14/19 02/14/19 Range/Units 17:20 16:54 15:29 WBC (4.8-10.8) K/uL RBC (4.7-6.1) M/uL Hgb (14.0-18.0) g/dL POC Hgb (14.0-18.0) g/dl Hct (42-52) % POC Hct (42-52) % MCV (80-100) fL MCH (25-34) pg MCHC (32-36) g/dL RDW Std Deviation (36.4-46.3) fL RDW Coeff of Jalen (11.5-14.5) % Plt Count (130-400) K/uL MPV (7.4-10.4) fL Immature Gran % (Auto) % Neut % (Auto) % Lymph % (Auto) % [place] % (Auto) % Eos % (Auto) % Baso % (Auto) % Immature Gran # (Auto) (0.00-0.02) K/uL Neut # (Auto) (1.4-6.5) K/uL Lymph # (Auto) (1.2-3.4) K/uL [place] # (Auto) (0.11-0.59) K/uL Eos # (Auto) (0-0.5) K/uL Baso # (Auto) (0-0.2) K/uL Toxic Granulation Toxic Vacuolation Echinocytes PT (9.0-12.0) Seconds INR (0.9-1.1) Fibrin Degrad Products 10-40 H (<10) mcg/ml Specimen Type Sample Site Art Line Patient Temperature POC pH 7.32 L (7.35-7.45) POC pCO2 35 (35-46) mmHg POC pO2 80 (80-95) mmHg POC HCO3 18 L (19-24) john/L POC Total CO2 19 L (24-31) mEq/l POC Base Excess -8.0 (-9-1.8) john/L POC O2 Saturation ABG pH (Temp Correct) (7.35-7.45) ABG pCO2 (Temp Corrct (35-46) mmHg POC ABG pO2 at Pt Temp POC ABG O2 Sat 95.0 (90-95) % Zaki Test NA O2 Delivery Device Ventilator POC O2 Rate 24 Minute Ventilation 14.5 Vent Mode Tidal Volume 500 End Tidal CO2 PEEP 8 POC Sodium (135-144) mEq/L Sodium 143 (136-145) mmol/L POC Potassium (3.3-5.0) mEq/L Potassium 4.8 (3.5-5.1) mmol/L Chloride 113 H (98-107) mmol/L Carbon Dioxide 21 (21-32) mmol/L Anion Gap 9.0 (3-11) BUN 53 H (7-18) mg/dl Creatinine 3.11 H D (0.6-1.4) mg/dl Est Cr Clr Drug Dosing 30.2 ml/min Est GFR ( Amer) 23.9 Est GFR (Non-Af Amer) 20.7 BUN/Creatinine Ratio 16.9 (10-20) Glucose 135 H (70-99) mg/dl Lactate (0.4-2.0) mmol/L Calcium 7.2 L (8.5-10.1) mg/dl Ionized Calcium (1.12-1.32) mmol/L Phosphorus (2.5-4.9) mg/dl Magnesium (1.8-2.4) mg/dl Ferritin (8-388) ng/ml Total Bilirubin 1.2 H (0.2-1) mg/dl Direct Bilirubin 0.6 H (0-0.2) mg/dl AST 141 H (15-37) U/L ALT 117 H (12-78) U/L Alkaline Phosphatase 124 H (45-117) U/L Lactate Dehydrogenase (87-241) U/L Total Creatine Kinase (39-308) U/L Troponin I 0.112 H* (0-0.045) ng/ml Total Protein 5.3 L (6.4-8.2) gm/dl Albumin 2.4 L (3.4-5.0) gm/dl Procalcitonin (0-0.5) ng/ml Specimen Hemolysis 02/14/19 02/14/19 02/14/19 Range/Units 15:28 11:14 10:50 WBC (4.8-10.8) K/uL RBC (4.7-6.1) M/uL Hgb (14.0-18.0) g/dL POC Hgb (14.0-18.0) g/dl Hct (42-52) % POC Hct (42-52) % MCV (80-100) fL MCH (25-34) pg MCHC (32-36) g/dL RDW Std Deviation (36.4-46.3) fL RDW Coeff of Jalen (11.5-14.5) % Plt Count (130-400) K/uL MPV (7.4-10.4) fL Immature Gran % (Auto) % Neut % (Auto) % Lymph % (Auto) % [place] % (Auto) % Eos % (Auto) % Baso % (Auto) % Immature Gran # (Auto) (0.00-0.02) K/uL Neut # (Auto) (1.4-6.5) K/uL Lymph # (Auto) (1.2-3.4) K/uL [place] # (Auto) (0.11-0.59) K/uL Eos # (Auto) (0-0.5) K/uL Baso # (Auto) (0-0.2) K/uL Toxic Granulation Toxic Vacuolation Echinocytes PT (9.0-12.0) Seconds INR (0.9-1.1) Fibrin Degrad Products (<10) mcg/ml Specimen Type Sample Site Art Line Patient Temperature POC pH 7.27 L (7.35-7.45) POC pCO2 36 (35-46) mmHg POC pO2 79 L (80-95) mmHg POC HCO3 16 L (19-24) john/L POC Total CO2 17 L (24-31) mEq/l POC Base Excess -11.0 L (-9-1.8) john/L POC O2 Saturation ABG pH (Temp Correct) (7.35-7.45) ABG pCO2 (Temp Corrct (35-46) mmHg POC ABG pO2 at Pt Temp POC ABG O2 Sat 94.0 (90-95) % Zaki Test NA O2 Delivery Device Ventilator POC O2 Rate 24 Minute Ventilation 15.6 Vent Mode Tidal Volume 500 End Tidal CO2 PEEP 8 POC Sodium (135-144) mEq/L Sodium (136-145) mmol/L POC Potassium (3.3-5.0) mEq/L Potassium (3.5-5.1) mmol/L Chloride (98-107) mmol/L Carbon Dioxide (21-32) mmol/L Anion Gap (3-11) BUN (7-18) mg/dl Creatinine (0.6-1.4) mg/dl Est Cr Clr Drug Dosing ml/min Est GFR ( Amer) Est GFR (Non-Af Amer) BUN/Creatinine Ratio (10-20) Glucose (70-99) mg/dl Lactate 4.0 H* (0.4-2.0) mmol/L Calcium (8.5-10.1) mg/dl Ionized Calcium 1.12 (1.12-1.32) mmol/L Phosphorus (2.5-4.9) mg/dl Magnesium (1.8-2.4) mg/dl Ferritin (8-388) ng/ml Total Bilirubin (0.2-1) mg/dl Direct Bilirubin (0-0.2) mg/dl AST (15-37) U/L ALT (12-78) U/L Alkaline Phosphatase (45-117) U/L Lactate Dehydrogenase (87-241) U/L Total Creatine Kinase (39-308) U/L Troponin I (0-0.045) ng/ml Total Protein (6.4-8.2) gm/dl Albumin (3.4-5.0) gm/dl Procalcitonin (0-0.5) ng/ml Specimen Hemolysis 02/14/19 02/14/19 02/14/19 Range/Units 09:09 09:09 09:09 WBC (4.8-10.8) K/uL RBC (4.7-6.1) M/uL Hgb (14.0-18.0) g/dL POC Hgb (14.0-18.0) g/dl Hct (42-52) % POC Hct (42-52) % MCV (80-100) fL MCH (25-34) pg MCHC (32-36) g/dL RDW Std Deviation (36.4-46.3) fL RDW Coeff of Jalen (11.5-14.5) % Plt Count (130-400) K/uL MPV (7.4-10.4) fL Immature Gran % (Auto) % Neut % (Auto) % Lymph % (Auto) % [place] % (Auto) % Eos % (Auto) % Baso % (Auto) % Immature Gran # (Auto) (0.00-0.02) K/uL Neut # (Auto) (1.4-6.5) K/uL Lymph # (Auto) (1.2-3.4) K/uL Hopewell # (Auto) (0.11-0.59) K/uL Eos # (Auto) (0-0.5) K/uL Baso # (Auto) (0-0.2) K/uL Toxic Granulation Toxic Vacuolation Echinocytes PT (9.0-12.0) Seconds INR (0.9-1.1) Fibrin Degrad Products (<10) mcg/ml Specimen Type Sample Site Patient Temperature POC pH (7.35-7.45) POC pCO2 (35-46) mmHg POC pO2 (80-95) mmHg POC HCO3 (19-24) john/L POC Total CO2 (24-31) mEq/l POC Base Excess (-9-1.8) john/L POC O2 Saturation ABG pH (Temp Correct) (7.35-7.45) ABG pCO2 (Temp Corrct (35-46) mmHg POC ABG pO2 at Pt Temp POC ABG O2 Sat (90-95) % Zaki Test O2 Delivery Device POC O2 Rate Minute Ventilation Vent Mode Tidal Volume End Tidal CO2 PEEP POC Sodium (135-144) mEq/L Sodium (136-145) mmol/L POC Potassium (3.3-5.0) mEq/L Potassium (3.5-5.1) mmol/L Chloride (98-107) mmol/L Carbon Dioxide (21-32) mmol/L Anion Gap (3-11) BUN (7-18) mg/dl Creatinine (0.6-1.4) mg/dl Est Cr Clr Drug Dosing ml/min Est GFR ( Amer) Est GFR (Non-Af Amer) BUN/Creatinine Ratio (10-20) Glucose (70-99) mg/dl Lactate 3.3 H* (0.4-2.0) mmol/L Calcium (8.5-10.1) mg/dl Ionized Calcium (1.12-1.32) mmol/L Phosphorus Cancelled (2.5-4.9) mg/dl Magnesium Cancelled (1.8-2.4) mg/dl Ferritin (8-388) ng/ml Total Bilirubin (0.2-1) mg/dl Direct Bilirubin (0-0.2) mg/dl AST (15-37) U/L ALT (12-78) U/L Alkaline Phosphatase (45-117) U/L Lactate Dehydrogenase (87-241) U/L Total Creatine Kinase (39-308) U/L Troponin I Cancelled (0-0.045) ng/ml Total Protein (6.4-8.2) gm/dl Albumin (3.4-5.0) gm/dl Procalcitonin (0-0.5) ng/ml Specimen Hemolysis 02/14/19 02/14/19 02/14/19 Range/Units 09:09 09:04 03:31 WBC (4.8-10.8) K/uL RBC (4.7-6.1) M/uL Hgb (14.0-18.0) g/dL POC Hgb 12.6 L (14.0-18.0) g/dl Hct (42-52) % POC Hct 37 L (42-52) % MCV (80-100) fL MCH (25-34) pg MCHC (32-36) g/dL RDW Std Deviation (36.4-46.3) fL RDW Coeff of Jalen (11.5-14.5) % Plt Count (130-400) K/uL MPV (7.4-10.4) fL Immature Gran % (Auto) % Neut % (Auto) % Lymph % (Auto) % Hope[place] % (Auto) % Eos % (Auto) % Baso % (Auto) % Immature Gran # (Auto) (0.00-0.02) K/uL Neut # (Auto) (1.4-6.5) K/uL Lymph # (Auto) (1.2-3.4) K/uL [place] # (Auto) (0.11-0.59) K/uL Eos # (Auto) (0-0.5) K/uL Baso # (Auto) (0-0.2) K/uL Toxic Granulation Toxic Vacuolation Echinocytes PT (9.0-12.0) Seconds INR (0.9-1.1) Fibrin Degrad Products (<10) mcg/ml Specimen Type Arterial Sample Site Art Line Art Line Patient Temperature 36.2 POC pH 7.24 L 7.15 L* (7.35-7.45) POC pCO2 39 40 (35-46) mmHg POC pO2 165 H 94 (80-95) mmHg POC HCO3 17 L 14 L (19-24) john/L POC Total CO2 18 L 15 L (24-31) mEq/l POC Base Excess -11.0 L -15.0 L (-9-1.8) john/L POC O2 Saturation 95 ABG pH (Temp Correct) 7.158 L* (7.35-7.45) ABG pCO2 (Temp Corrct 39 (35-46) mmHg POC ABG pO2 at Pt Temp 90 POC ABG O2 Sat 99.0 H (90-95) % Zaki Test NA NA O2 Delivery Device Ventilator Ventilator POC O2 Rate 24 24 Minute Ventilation 15.6 17.5 Vent Mode AC Tidal Volume 500 5 End Tidal CO2 29 PEEP 8 8 POC Sodium 148 H (135-144) mEq/L Sodium 147 H (136-145) mmol/L POC Potassium 4.2 (3.3-5.0) mEq/L Potassium 4.6 (3.5-5.1) mmol/L Chloride 119 H (98-107) mmol/L Carbon Dioxide 19 L (21-32) mmol/L Anion Gap 9.0 (3-11) BUN 48 H (7-18) mg/dl Creatinine 2.67 H (0.6-1.4) mg/dl Est Cr Clr Drug Dosing 35.2 ml/min Est GFR ( Amer) 28.8 Est GFR (Non-Af Amer) 24.8 BUN/Creatinine Ratio 18.1 (10-20) Glucose 118 H (70-99) mg/dl Lactate (0.4-2.0) mmol/L Calcium 7.3 L (8.5-10.1) mg/dl Ionized Calcium (1.12-1.32) mmol/L Phosphorus 3.4 (2.5-4.9) mg/dl Magnesium 2.2 (1.8-2.4) mg/dl Ferritin (8-388) ng/ml Total Bilirubin (0.2-1) mg/dl Direct Bilirubin (0-0.2) mg/dl AST (15-37) U/L ALT (12-78) U/L Alkaline Phosphatase (45-117) U/L Lactate Dehydrogenase (87-241) U/L Total Creatine Kinase (39-308) U/L Troponin I 0.143 H* (0-0.045) ng/ml Total Protein (6.4-8.2) gm/dl Albumin (3.4-5.0) gm/dl Procalcitonin (0-0.5) ng/ml Specimen Hemolysis Medications Administered Current Inpatient Medications Albuterol (Ventolin 0.083% 2.5mg/3ml) 2.5 mg NEB Q4R PRN PRN Reason: Shortness Of Breath Or Wheezing Stop: 03/15/19 13:01 Fentanyl Citrate (Fentanyl Citrate) 25 mcg IV ONE PRN PRN Reason: Pain Not Controlled by Drip Stop: 02/28/19 10:22 Fentanyl Citrate (Fentanyl Bolus From Bag) 25 mcg IV Q1H PRN PRN Reason: Pain or Agitation Stop: 02/28/19 22:20 Last Admin: 02/14/19 22:50 Dose: 25 mcg Documented by: Heparin Sodium (Porcine) (Heparin Sodium (Porcine)) 5,000 units SC Q12 JOE Stop: 03/16/19 20:59 Last Admin: 02/14/19 20:06 Dose: 5,000 units Documented by: Epinephrine HCl 4 mg/ Dextrose 254 mls @ 0 mls/hr IV .Q0M [facility]; Protocol Stop: 03/16/19 02:59 Last Titration: 02/14/19 20:30 Dose: 0 mcg/kg/min, 0 mls/hr Documented by: Sodium Bicarbonate 150 meq/ (Dextrose) 1,150 mls @ 150 mls/hr IV .Q7H40M [facility] Stop: 03/16/19 03:44 Last Admin: 02/15/19 02:09 Dose: 150 mls/hr Documented by: Piperacillin Sod/Tazobactam (Sod 4.5 gm/ Dextrose) 120 mls @ 30 mls/hr IV Q8H [facility]; Protocol Stop: 02/21/19 07:59 Last Infusion: 02/15/19 03:20 Dose: Infused Documented by: Hydrocortisone Sodium (Succinate 100 mg/ Syringe) 2 mls @ 4 mls/min IV Q6H [facility] Stop: 03/16/19 04:59 Last Admin: 02/15/19 05:36 Dose: 4 mls/min Documented by: Thiamine HCl 200 mg/ Sodium (Chloride) 52 mls @ 208 mls/hr IV QAM [facility] Stop: 03/16/19 08:59 Last Infusion: 02/14/19 10:08 Dose: Infused Documented by: Midazolam HCl (Versed) 125 mg in 250 mls @ 4 mls/hr IV .Q24H [facility]; Protocol Stop: 03/16/19 05:36 Last Titration: 02/15/19 07:08 Dose: 2 mg/hr, 4 mls/hr Documented by: Acetaminophen (Ofirmev) 1,000 mg in 100 mls @ 400 mls/hr IV Q8H PRN PRN Reason: Fever Stop: 02/17/19 06:22 Last Infusion: 02/14/19 10:08 Dose: Infused Documented by: Famotidine 20 mg/ Syringe 5 mls @ 2.5 mls/min IV QAM [facility] Stop: 03/16/19 11:29 Last Admin: 02/14/19 11:29 Dose: 2.5 mls/min Documented by: Levothyroxine Sodium 75 mcg/ (Syringe) 3.75 mls @ 2 mls/min IV DAILY@0900 [facility] Stop: 03/17/19 08:59 Fentanyl Citrate (Fentanyl Drip) 1,250 mcg in 250 mls @ 5 mls/hr IV .Q24H PRN; Protocol PRN Reason: Titration Stop: 02/28/19 10:22 Last Titration: 02/15/19 07:08 Dose: 25 mcg/hr, 5 mls/hr Documented by: Vasopressin 20 units/ Sodium (Chloride) 101 mls @ 12.12 mls/hr IV .Q8H20M [facility] Stop: 03/16/19 15:59 Last Infusion: 02/15/19 07:08 Dose: 0.04 unit/min, 12.1 mls/hr Documented by: Norepinephrine Bitartrate 16 (mg/ Dextrose) 516 mls @ 85.45 mls/hr IV .Q6H3M [facility]E; Protocol Stop: 03/17/19 00:00 Last Titration: 02/15/19 07:08 Dose: Infused Documented by: Levothyroxine Sodium (Synthroid) 100 mcg PO DAILYBB [facility] Stop: 03/16/19 06:29 Last Admin: 02/15/19 05:47 Dose: Not Given Documented by: Midazolam HCl (Versed) 2 mg IV Q2H PRN PRN Reason: agitation/anxiety Stop: 03/16/19 02:38 Last Admin: 02/14/19 04:43 Dose: 2 mg Documented by: Miscellaneous (Order Awaiting Action) 1 ea N/A QS [facility] Stop: 03/15/19 13:29 Last Admin: 02/15/19 00:34 Dose: Not Given Documented by: Miscellaneous (Icu Protocol For Hyperglycemia) 1 ea N/A PRN PRN; Protocol PRN Reason: Hyperglycemia Protocol Stop: 02/16/19 02:38 Miscellaneous Information (Consult) 1 ea N/A UD PRN PRN Reason: Consult Stop: 03/16/19 03:37 Mycophenolate Mofetil (Cellcept) 500 mg PO QAM [facility] Stop: 03/16/19 08:59 Last Admin: 02/14/19 09:31 Dose: Not Given Documented by: Mycophenolate Mofetil (Cellcept) 1,000 mg PO HS [facility] Stop: 03/15/19 20:59 Last Admin: 02/13/19 20:44 Dose: 1,000 mg Documented by: Ondansetron HCl (Zofran) 4 mg IV Q6H PRN PRN Reason: nausea or vomiting Stop: 03/15/19 12:10 Last Admin: 02/13/19 21:30 Dose: 4 mg Documented by: Pregabalin (Lyrica) 50 mg PO HS [facility] Stop: 03/15/19 20:59 Last Admin: 02/13/19 20:44 Dose: 50 mg Documented by: Pregabalin (Lyrica) 100 mg PO BID [facility] Stop: 03/15/19 20:59 Last Admin: 02/14/19 09:29 Dose: Not Given Documented by: Critical Care Time Critical Care Time: Yes Total Critical Care Time: 95 I have personally spent 95 minutes of critical care time in the direct management of this patient. This is a life/limb threatening event. This includes time spent evaluating patient, direct bedside care, chart review, placing orders, interpretation of diagnostic studies, discussion with consultants, patient, and/or family members regarding treatment decisions, as well as other required patient management activities. This time is exclusive of all separately billable procedures, and teaching time and separate from and in addition to any other critical care service time. Resident Activity Tracking Resident Involvement: Resident Care Provided Care Provided: Adult Hospital Medicine (ICU) (1) Fracture of multiple ribs of both sides Encounter type: initial encounter Fracture type: closed Qualified Code(s): S22.43XA - Multiple fractures of ribs, bilateral, initial encounter for closed fracture (2) Abdominal pain Abdominal location: unspecified location Qualified Code(s): R10.9 - Unspecified abdominal pain
[2019-02-15] MEDS: FAMOTIDINE 20 MG in SYRINGE 3 ML IV SCH (08:43)
[2019-02-15] MEDS: THIAMINE HCL 200 MG in SODIUM CHLORIDE 0.9% 50 ML IV SCH (08:43)
[2019-02-15] MEDS: HEPARIN SOD 5,000 UNIT/0.5 ML VIAL SC SCH ×2 (08:44→22:18)
[2019-02-15] MEDS ORDERED: LEVOTHYROXINE SODIUM 75 MCG in SYRINGE 0 ML IV SCH (09:00)
[2019-02-15] MEDS: MIDAZOLAM HCL 125 MG/250 ML BAG IV SCH (09:29)
[2019-02-15] MEDS: PIPERACILLIN/TAZOBACTAM 4.5 GM in DEXTROSE 5% 100 ML IV SCH (10:01)
[2019-02-15] MEDS ORDERED: CALCIUM GLUCONATE 10% 1,000 MG in SODIUM CHLORIDE 0.9% 50 ML IV STA (10:21)
[2019-02-15] MEDS ORDERED: MAGNESIUM SULFATE / D5W 1 GM/100 ML BAG IV ONE (10:30)
--- NOTE | 2019-02-15 10:44 | Nephrology Consultation ---
Date of Consultation February 15, 2019 Assessment & Plan (1) Admitted to intensive care unit: (2) Respiratory failure with hypoxia: (3) Aspiration into airway: (4) Metabolic acidemia: (5) Acute kidney failure: The patient is critically ill. He remains on vasopressor support. He has a notably positive fluid balance. Inter vascularly he is clamped down. He continues to produce lactic acid in excess. There is evidence of persistent lactic acidosis. Acidemia has been treated with IV bicarbonate. Thankfully hyperkalemia has improved. The patient is making urine. There is no emergent indication for dialysis at this time. Close perspective monitoring will be a central appeared have discussed potential indications for dialysis with the patient's family. I reviewed the plan of care with Dr. Clements. Patient has had hemodynamic instability. He may require some form of slow continuous dialysis therapy if indicated. At this time, vasopressors are being weaned. The patient remains on an infusion of IV sodium bicarbonate at 150 mL/hr. His medications are appropriately dosed for kidney function. Laboratory studies will be monitored Q 6 hours. Urine output is being documented. Transthoracic echocardiogram was reviewed today. There is severe hypokinesis the inferior wall left ventricular ejection fraction is preserved at 40+ percent. Patient CT scan on admission demonstrated normal appearing kidneys. Clinical presentation is consistent with ischemic ATN. Appropriate supportive cares otherwise being provided. The patient is oxygenating reasonably well. He remains on ventilator support. Vancomycin will be dosed on repeat levels. He remains on Zosyn which is appropriately dosed for his kidney function. Lisinopril has been held. Lyrica has been held. Patient's laboratory studies are also being monitored for possible evidence of DIC. Liver enzymes are normal. Platelet count has dropped. FSP elevated. (6) Hyperkalemia: (7) Ileus: (8) Paroxysmal atrial fibrillation: (9) H/O aortic valve replacement: (10) BPH with obstruction/lower urinary tract symptoms: (11) Cabrales's esophagus: History of Present Illness Reason for Consultation: ADRIANO Requesting Physician: Eva Cook MD Attending Physician: Eva Cook MD History of Present Illness Mr. Philip Mendosa was seen and evaluated in the ICU this morning. Nephrology consultation provided for ADRIANO with associated metabolic abnormalities. I discussed the details and plan of care with Dr. Clements. Patient was unable to provide any history at the time of my assessment due to sedation and VDRF. History was obtained by review of the medical records and discussion with family and other medical providers. Mr. Philip Mendosa is a critically ill 58-year-old male with septic shock. The patient presented to [facility] on February 13 with generalized abdominal pain, nausea and vomiting. CT of the abdomen and pelvis was obtained. Patient was diagnosed with an ileus at least partially related to opiates. Unfortunately on February 14, patient aspirated fecal material. He developed acute hypoxic respiratory failure requiring emergent endotracheal intubation. At this time he had renal insufficiency and had developed hyperkale maria elena. The patient suffered an asystolic arrest. He was resuscitated and has been transferred to the ICU where he has had persistent vasopressor requirements. The patient has been maintained in a positive fluid balance of greater than 12 L. He has a high obligatory intake. Cardiac history prior to admission included a history of aortic valve replacement, mild left ventricular hypertrophy with known history of some diastolic dysfunction, hypertension. The patient follows in the Cardiology Clinic with Dr. Alva. He is not anticoagulated for his atrial fibrillation due to a history of upper GI bleeds. Medical history is also notable for scleroderma with diffuse cutaneous sclerosis for which he is maintained on mycophenolate mofetil. He has BPH with chronic lower urinary tract symptoms, hypothyroidism, as well as chronic pain. Baseline kidney function is normal with a serum creatinine of 1.1 mg/dL in December of 2018. Within the past 24 hours the patient has been treated for persistent hyperkalemia with bicarbonate, insulin and calcium gluconate. Serum potassium is improving. However the patient's urine output was noted to be decreasing. Creatinine has been relatively stable. Volume status acceptable. Epinephrine was weaned off. He remains febrile. Cultures are pending. The patient is on broad-spectrum antibiotics with vancomycin and Zosyn. Patient's family did not note any reservations about proceeding to dialysis if indicated. Allergies Allergy/AdvReac Type Severity Reaction Status Date / Time azathioprine Allergy Intermediate "allergic" Verified 02/13/19 09:52 atropine Allergy Mild allergic-SKIN Verified 02/13/19 09:52 BREAKDOWN diphenoxylate Allergy Mild allergic Verified 02/13/19 09:52 amlodipine [From Lotrel] Allergy Unknown Rash Verified 02/13/19 09:52 benazepril [From Lotrel] Allergy Unknown Rash Verified 02/13/19 09:52 Home Medications Home Medications Medication Instructions Recorded Confirmed Type cyanocobalamin (vitamin B-12) 1,000 mcg IM MONTHLY 07/29/18 02/13/19 History ferrous sulfate 325 mg PO QAM 07/29/18 02/13/19 History finasteride 5 mg PO HS 07/29/18 02/13/19 History mycophenolate mofetil [CellCept] 1,000 mg PO HS 07/29/18 02/13/19 History mycophenolate mofetil [CellCept] 500 mg PO QAM 07/29/18 02/13/19 History pregabalin [Lyrica] 50 mg PO HS 07/29/18 02/13/19 History ranitidine HCl 300 mg PO BID 07/29/18 02/13/19 History silodosin [Rapaflo] 8 mg PO HS 07/29/18 02/13/19 History hydrocodone 5 mg-acetaminophen 325 1 tab PO DAILY PRN #30 tab 08/05/18 02/13/19 Rx mg tablet Dexilant 60 mg PO BID #60 cap 08/25/18 02/13/19 Rx cholecalciferol (vitamin D3) 50 2,000 unit PO QAM #90 cap 10/03/18 02/13/19 History mcg (2,000 unit) capsule lisinopril 5 mg tablet 5 mg PO QAM #90 tab 10/29/18 02/13/19 Rx pregabalin 100 mg capsule 100 mg PO BID #8 cap 11/01/18 02/13/19 Rx levothyroxine 100 mcg tablet 100 mcg PO QAM 02/05/19 02/13/19 History albuterol sulfate 2 puff INHALATION Q6H PRN 02/13/19 02/13/19 History Patient History Medical History Anemia (Acute) Atrial fibrillation No currently on AC due to GIB and Cabrales's esophagus. Not currently requiring AV miguel angel hanna Cabrales's esophagus (Acute) Athena to be 2/2 scleroderma resulting in severe GERD. EGD 09/13 with esphagitis but negative for intestinal metaplasia. Increase in symptoms, repeat EGD soon. Managed with PPI and H2 hanna. Followed by GI BPH with obstruction/lower urinary tract symptoms (Chronic) Managed with combination therapy alpha hanna and 5-alpha reductase inhibitor. Followed by urology. Chronic pain (Chronic) 2/2 back pain with 3 previous spinal operations. Managed with pregabalin + hydrocodone-acetaminophen 5-325mg q6h PRN for pain Elevated prostate specific antigen (PSA) (Chronic) Negative biopsies 2006 and 2012. Prostate MRI (06/16) negative. PSA monitored yearly by urology. Gastric ulcer (Acute) Gastroesophageal reflux disease (Chronic) Managed with PPI and H2 hanna. Followed by GI. Complicated with Cabrales's esophagus. Hiatal hernia (Acute) Small, present on EGD (09/13). Hypertension (Chronic) Long standing. Currently managed with lisinopril 5mg daily. 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 Previously evalu ated at [facility]. Followed by cardiology. 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 Beliefs That Will Affect Care: None Current Living Situation: Significant Other Other Information That Helps Us Care for You: No Feels Safe at Home: Yes Safety Concerns: Feels Safe At This Time Smoking Status: Never smoker Second Hand Exposure: No ; Hx Alcohol Use: Yes Alcohol type: beer, wine and hard liquor Hx Substance Use: No Review of Systems Review of Systems: Unobtainable due to endotracheal tube Physical Exam Constitutional: + ill appearing, + mechanically ventilated and + edematous; no acute distress Eyes: + anicteric sclerae; no conjunctival abnormality ENMT: ETT, no lesions noted Neck: normal visual inspection and trachea midline Respiratory: symmetric chest movement Auscultation: + rhonchi; no wheezes Cardiovascular: Heart Sounds: normal S1 and normal S2 Extremities: + edema; + abnormal capillary refill Gastrointestinal (Abdomen): Inspection/Auscultation: + abdomen distended and + hypoactive bowel sounds; no visible herniation and no abdominal surgical incision Percussion/Palpation: + tympanic to percussion Musculoskeletal: Extremities: + cyanosis; no clubbing and no petechiae Skin: no rashes Neurologic: Motor/Sensory: no asterixis Psychiatric: sedated Results & Data Vital Signs (Past 12 Hours) Vital Signs Pulse Resp BP Pulse Ox 02/15/19 07:20 94 H 24 95 02/15/19 05:45 93 H 24 93 02/15/19 05:00 94 H 93 02/15/19 04:00 91 H 92 02/15/19 03:05 93 H 24 93 02/15/19 03:00 90 91 02/15/19 02:00 93 H 94 02/15/19 01:49 93 H 24 93 02/15/19 01:00 94 H 94 02/15/19 00:00 96 H 95 02/14/19 23:28 97 H 27 H 95 02/14/19 23:00 97 H 96/71 L 95 PG Care Time/CCT Total # of Minutes Spent Total Time Spent with Patient: Total time spent is greater than 50% in coordination of care (as documented) at patient's floor/unit and/or counseling patient: 40 minutes of critical care time
[2019-02-15 10:47] LABS: iSTAT Arterial Blood Gas HCO3 23 meg/L (19-24); iSTAT Arterial Blood Gas pCO2 36 mmHg (35-46); iSTAT Arterial Blood Gas pH 7.41 (7.35-7.45); iSTAT Arterial Blood Gas pO2 82 mmHg (80-95); iSTAT Carbon Dioxide 24 mEq/l (24-31); iSTAT Site Art Line
[2019-02-15] MEDS: ALBUMIN 25% 50 ML IV SCH ×2 (10:57→11:08)
[2019-02-15 11:19] LABS: Calcium 6.8 mg/dl (8.5-10.1); Creatinine Clr Calc Pharmacy 23.2 ml/min; Est GFR (African American) 15.7; Est GFR (Non-African American) 13.6; Potassium 5.1 mmol/L (3.5-5.1)
[2019-02-15] MEDS ORDERED: PHARMACY GLYCEMIC MGMT CONSULT PRN (11:19)
[2019-02-15 11:21] LABS: Fibrinogen 841 mg/dl (184-400); INR 1.5 (0.9-1.1); Partial Thromboplastin Ratio 4.9; Prothrombin Time 14.6 Seconds (9.0-12.0)
[2019-02-15 11:26] LABS: Phosphorus 6.4 mg/dl (2.5-4.9)
[2019-02-15 11:30] LABS: Partial Thromboplastin Time 132.4 Seconds (21.0-31.0)
[2019-02-15] MEDS ORDERED: INSULIN GLARGINE SOLOSTAR 100 UNITS/ML 3 ML PEN SC ONE ×2 (12:00→18:00)
--- NOTE | 2019-02-15 12:03 | Medical Student Progress Note ---
Date of Service February 15, 2019 Assessment & Plan (1) Respiratory failure with hypoxia: Patient is a 58 yo M with a hx of hypertension, hypothyroidism, GERD, Cabrales's esophagus, scleroderma, paroxysmal A. fib, status post aortic valve replacement 10 years ago, and recent fall with rib fracture who presented to the ED with acute abdominal pain and who was admitted and then transferred to the ICU for acute respiratory failure 2/2 aspiration 2/2 emesis in the setting of an ileus. Acute hypoxic respiratory failure 2/2 aspiration 2/2 to emesis in the setting of bowel obstruction -Code blue after admitted to medicine floor requiring emergent endotracheal intubation -continues to be on vent Severe sepsis with Septic shock secondary to ? aspiration -Likely secondary to GI pathology and aspiration -Intubated and sedation under management of ICU team - IVF support, currently on Bicarb 150cc/hr - Levophed at .36mcg/kg/min - Epi held - Vasopressin at 0.04 - APTT elevated - 132.4 but clinically improving - Continue IV 4.5 gm Piperacillin/Tazobactam Q8H - stress dose steroid - IV hydrocortisone 100mgs q8hrs Ileus -Recent hx of rib fracture needing narcotics possibly contributed -CT abdomen suggestive of enterocolitis with ileus - KUB showed persistent gaseous distention of large and small bowel suggestive of probable ileus versus distal obstruction; multiple rib fractures also noted -Surgery consulted, deferring surgical intervention pending patient stabilization or transfer to tertiary center for concern that patient will arrest in OR. Anesthesia consulted for operative risk discussion. -GI consulted, suspects related to narcotic use in the setting of motility i ssues due to Scleroderma vs infectious process. No indication for colonoscopy at this time -NG tube in place to low intermittent suction, 250cc out this morning preshift, 150cc out after shift change ADRIANO, baseline Cr ~ 1.1-1.2 - Cr still uptrending, Cr 4.4 today - Conitnue IV fluids, pressor support as above - Monitor Is and Os - BMP Q6H - Nephro consulted. Does not feel emergent indication for dialysis. Approved current med dosing for kidney function. Feels clinical presentation suggests ischemic ATN. Demand ischemia - troponin downtrending, 0.04 today Paroxysmal A. fib -Currently in sinus rhythm -Not on BB or anti-coag at home - Continue ICU tele Hypertension -Lisinopril 5mg on hold -currently hypotensive in the setting of septic shock and on pressors as above Hypothyroidism -last TSH December 2017 normal at 0.924 -held levothyroxine 100mcg daily for NPO -Synthroid IV 75 mcg levothyroxine until able to tolerate PO Scleroderma/ Diffuse cutaneous systemic sclerosis -managed by [facility] -mycophenolate -Continue Dexilant 60 mg BID per GI -Pregabalin DM - lantus and log. per pharmacy consult Prophylaxis: - DVT: Heparin SQ Q12 - Ulcer: famotidine 20mg qAM Code Status: Full FEN: NPO Disp: Ongoing, currently requiring ICU level of care on multiple vasopressors. Present on Admission?: No (2) Acute kidney failure: Present on Admission?: No (3) Metabolic acidemia: Present on Admission?: No (4) Aspiration into airway: Present on Admission?: No (5) Admitted to intensive care unit: Present on Admission?: No (6) Hypokalemia due to excessive gastrointestinal loss of potassium: Present on Admission?: No (7) Left rib fracture: Present on Admission?: Yes (8) Ileus: Present on Admission?: Yes (9) Abdominal pain: Abdominal location: unspecified location Qualified Code(s): R10.9 - Unspecified abdominal pain Present on Admission?: Yes (10) Hyperkalemia: Present on Admission?: No Supervising Attestation Medical student Supervision Note: I independently interviewed and examined the patient and verified the avila history and physical, reviewed labs and image studies, discussed the case with Martha Rose and agree with the findings and care plan. continues to be intubated. off epinephrine drip. continue with vasopressin, levaphed, IVF, stress dose steroids. Broad spectrum IV abx. surgery following for possible intervention. Subjective Patient is still sedated. Family at bedside felt he is improving. Discussed care with ICU team. Sedation to be held this morning, levophed/vasopressin currently still running, epi was stopped last night. Review of Systems Review of Systems: Unobtainable due to sedation Physical Exam Physical Exam: Constitutional: ill appearing and sedated Eyes: PERRL, conjunctivae normal, anicteric sclerae Respiratory: tachypneic; lungs clear to auscultation bilaterally Cardiovascular: RRR; no extremity edema; diminished capillary refill; cool to touch Gastrointestinal: abdomen distended and firm; hypoactive bowel sounds; no visible herniation; abdomen tender to palpation; guarding Extremity: Cool, dry. L PT pulse intact to palpation, R DP intact to doppler. Results & Data Vital Signs (Past 12 Hours) Vital Signs Temp Pulse Resp BP Pulse Ox 02/15/19 10:45 94 H 24 96 02/15/19 10:01 94 H 137/104 H 94 02/15/19 09:00 95 H 94 02/15/19 08:00 37.2 C 95 H 95 02/15/19 07:20 94 H 24 95 02/15/19 07:00 94 H 94 02/15/19 05:45 93 H 24 93 02/15/19 05:00 94 H 93 02/15/19 04:00 91 H 92 02/15/19 03:05 93 H 24 93 02/15/19 03:00 90 91 02/15/19 02:00 93 H 94 02/15/19 01:49 93 H 24 93 02/15/19 01:00 94 H 94 02/15/19 00:00 96 H 95
[2019-02-15] MEDS: SODIUM BICARBONATE 8.4% 150 MEQ in WATER, STERILE 1,000 ML IV SCH ×2 (13:50→21:43)
[2019-02-15] MEDS: INSULIN ASPART 100 UNITS/ML 3 ML PEN SC SCH ×2 (13:59→17:50)
--- NOTE | 2019-02-15 15:39 | Pharmacy Report ---
Glycemic Control Consultation - Date of Service February 15, 2019 - Scope Scope: Glycemic Pharmacist consulted for glycemic control and to write orders per [facility] ED inpatient glycemic control protocol - Objective Weight: 103.1 kg Accuchecks BSG (last 24hrs): 02/14/19 02/14/19 02/15/19 15:29 20:07 02:09 Glucose 135 H 159 H 176 H POC Glucose (other) 02/15/19 02/15/19 02/15/19 04:00 10:27 13:55 Glucose 220 H 112 H POC Glucose (other) 113 H Laboratory Data (last 24hrs): 02/14/19 02/14/19 02/15/19 15:29 20:07 02:09 Potassium 4.8 4.9 5.7 H D Carbon Dioxide 21 19 L 22 Anion Gap 9.0 11.0 8.0 Creatinine 3.11 H D 3.53 H D 4.03 H D Est Cr Clr Drug Dosing 30.2 26.6 23.3 02/15/19 02/15/19 02/15/19 04:00 05:07 10:27 Potassium 3.8 D 4.8 D 5.1 Carbon Dioxide 20 L 25 Anion Gap 4.0 8.0 Creatinine 3.14 H D 4.40 H D Est Cr Clr Drug Dosing 29.9 23.2 - Recent Pertinent Medications Outpatient Anti-diabetic Regimen: * None * A1c ordered for tomorrow The patient is currently receiving: * Insulin 10 units IVP x1 overnight Risk Factors for Insulin Resistance: * Steroids: hydrocortisone 100 mg IV q6h tapered to q8h * Infection: GI vs. PNA on Zosyn * Pressors: NE and vasopressin * IVF: Na Bicarb gtt mixed in D5 @ 150 mL/hr (dextrose removed from this IVF @ ~ 1200) * Diet: NPO - Assessment & Plan Assessment & Plan: ASSESSMENT: * 58 yo M with steroid-induced hyperglycemia with multiple stressors (see above) * Will initiate Novolog per dosing calculator between intermediate and severe stress estimates * OK to hold off on Lantus for now as suspect removal of D5 from IVF may help prevent hyperglycemia. Will add low-dose Lantus per sliding scale if BSG >140 mg/dL PLAN FOR INPATIENT GLYCEMIC CONTROL: * Basal insulin: Lantus SC x1 @ 1800 depending on BSG * BSG less than 140 mg/dL: no Lantus * BSG 140-180 mg/dL: 5 units * BSG greater than 180 mg/dL: 10 unitsf * Bolus insulin * NovoLog per scale ACHS or Q6hrs while NPO * Goal Range: Low 120 mg/dL - High 160 mg/dL * Correction Factor: 20 mg/dL/unit * Nutritional / Prandial insulin per carb ratio of 1 unit per 6 grams CHO consumed * Please note that the plan above was derived based on current level of insulin resistance and hospital stress. These recommendations are appropriate for inpatient admission only. Plan of care upon discharge will need to be reassessed to avoid potential outpatient hypo/hyperglycemia. Thank you.
[2019-02-15 17:07] LABS: Albumin Level 2.2 gm/dl (3.4-5.0); BUN Creatinine Ratio 14.4 (10-20); Bilirubin Direct 0.9 mg/dl (0-0.2); Bilirubin,Total 2.1 mg/dl (0.2-1); Calcium 6.8 mg/dl (8.5-10.1); Creatinine Clr Calc Pharmacy 21.4 ml/min; Est GFR (African American) 14.3; Est GFR (Non-African American) 12.3; Ferritin 203.3 ng/ml (8-388); Magnesium 2.1 mg/dl (1.8-2.4); Phosphorus 6.1 mg/dl (2.5-4.9); Potassium 5.5 mmol/L (3.5-5.1); Total Protein 5.4 gm/dl (6.4-8.2)
[2019-02-15] MEDS ORDERED: HYDROCORTISONE SOD 100 MG in SYRINGE 0 ML IV SCH (18:00)
[2019-02-15 19:45] LABS: Hematocrit (blood only) 38.1 % (42-52); Mean Corpuscular Hemoglobin 28.1 pg (25-34); Mean Corpuscular Hgb Conc 34.1 g/dL (32-36); Mean Corpuscular Volume 82.3 fL (80-100); RDW Coefficient of Variation 14.2 % (11.5-14.5); RDW Standard Deviation 42.4 fL (36.4-46.3); Red Blood Count 4.63 M/uL (4.7-6.1); White Blood Count 11.13 K/uL (4.8-10.8)
[2019-02-15 19:56] LABS: INR 1.3 (0.9-1.1); Prothrombin Time 13.5 Seconds (9.0-12.0)
--- NOTE | 2019-02-15 19:59 | Billing Data ---
Date of Service February 15, 2019 Coding Level of Care Code Critical Care ea addt'l 30 min
[2019-02-15] MEDS ORDERED: DEXTROSE 50% 50 ML SYRINGE IV STA (20:00)
[2019-02-15] MEDS ORDERED: MIDAZOLAM HCL 5 MG/ML 1 ML VIAL ONE (20:00)
[2019-02-15] MEDS ORDERED: INSULIN HUMAN REGULAR IV STA (20:04)
[2019-02-15] MEDS ORDERED: INSULIN HUMAN REGULAR PER UNIT 10 UNITS in SYRINGE 9.9 ML IV STA (20:07)
[2019-02-15 20:08] LABS: BUN Creatinine Ratio 14.4 (10-20); Calcium 6.8 mg/dl (8.5-10.1); Creatinine Clr Calc Pharmacy 20.1 ml/min; Est GFR (African American) 13.3; Est GFR (Non-African American) 11.4; Magnesium 2.1 mg/dl (1.8-2.4); Potassium 5.5 mmol/L (3.5-5.1)
[2019-02-15 20:19] LABS: Mean Platelet Volume 11.4 fL (7.4-10.4); Platelet Count 97 K/uL (130-400)
[2019-02-15 20:20] LABS: Dohle Bodies 1+; Echinocytes 2+; Giant Platelets 1+; Immature Granulocytes # (auto) 0.12 K/uL (0.00-0.02); Immature Granulocytes % (auto) 1.1 %; Lymphocytes # (auto) 0.36 K/uL (1.2-3.4); Lymphocytes % (auto) 3.2 %; Monocytes # (auto) 0.57 K/uL (0.11-0.59); Monocytes % (auto) 5.1 %; Neutrophils # (auto) 10.08 K/uL (1.4-6.5); Neutrophils % (auto) 90.6 %; Platelet Estimate Decreased (Normal)
--- NOTE | 2019-02-15 20:31 | Procedure Note ---
Procedure Note Date of Service February 15, 2019 Procedure: Internal Jugular Central Line Placement (HD Cath) Attending: Dr. Clements APC: Shailesh Carson PA-C Indication: Central Drug Administration, Poor Venous Access, Multiple Lab Draws Necessary, etc. Anesthesia: Lidocaine 1% Consent was signed and placed on the chart prior to procedure. Indication, risks, and benefits were explained at length. A time-out was completed verifying correct patient, procedure, site, positioning, and implants(s) or special equipment if applicable. Patients RIGHT Neck was cleansed and draped in the typical sterile fashion using Chloraprep. The Internal Jugular Vein and Carotid Artery were identified using ultrasound. The superficial tissue was anesthetized using 3.0 mL of 1% lidocaine without epinephrine under direct visualization with the ultrasound. After adequate anesthetization was achieved, the Internal Jugular vein was cannulated under direct ultrasound guidance using an introducer needle on a syringe. Good venous blood return was maintained prior to removal of syringe from introducer needle. Using Seldinger Technique, a guide wire was advanced through the introducer needle without resistance. The introducer needle was removed and ultrasound images were obtained of the guide wire within the Internal Jugular Vein and saved to the patients medical record. A small incision was made in penetrating fashion at the guide wire insertion site utilizing an 11 blade scalpel. The dilator was advanced to the vessel without resistance. The dilator was exchanged for the HD catheter which was advanced into the vessel without resistance. The guide wire was removed intact from the catheter without issue. Claves were placed on each catheter tip with confirmation of good blood flow from each lumen. Each port was easily flushed with sterile saline. The catheter was placed at 17 cm and sutured in place. BioPatch was applied to the catheter and a sterile Tegaderm dressing was applied over the catheter with careful attention to sterility. Patient tolerated procedure well. No immediate complications were met. Post procedure x-ray was completed, placement was appropriate and no pneumothorax was noted. Images obtained are saved for permanent record Procedural Ultrasound Guidance: Procedure Date: 02/15/2019 Indication: Emergent HD Attending: Dr. Clements APC: Shailesh Carson PA-C Artery AND Vein visualized: YES Compressible Vein: YES Images obtained are saved for permanent record. Coding CPT Codes Tubes, Drains, and Vasc Access - Tubes, Drains, and Vasc Access: [id number] Insertion of cannula for hemodialysis ([id number]) Tubes, Drains, and Vasc Access - Tubes, Drains, and Vasc Access: [id number] Ultrasound Guidance For Vascular ([id number])
[2019-02-15 20:47] LABS: iSTAT Allen Test Pass; iSTAT Arterial Blood Gas HCO3 25 meg/L (19-24); iSTAT Arterial Blood Gas pCO2 36 mmHg (35-46); iSTAT Arterial Blood Gas pH 7.45 (7.35-7.45); iSTAT Arterial Blood Gas pO2 77 mmHg (80-95); iSTAT Carbon Dioxide 26 mEq/l (24-31); iSTAT Site Art Line
--- NOTE | 2019-02-15 20:56 | Communication Note ---
Date of Service: February 15, 2019 Change of shift, signout was provided by my attending physician. Throughout the day, patient was noted to have worsening renal failure as well as little to no urine output. His potassium continue to wax and wane throughout the day. He was assessed by nephrology. Reports at that point suggest no need to perform emergent spot dialysis at that point, however concerned that he would not tolerate standard hemodialysis anyway. Throughout the day, patient's acidosis continued to be persistent. His urine output continued to decline. Hyperkalemia continue to be treated throughout the day. [place] did return call just before 8 PM. At this point, given the patient's metabolic derangements, persistent hyperkalemia, acute renal failure, and need for maximization prior to any considerations for surgical intervention, the patient will be transferred. There was discussion regarding whether related to transfer. Ideally, this patient would be transferred via air medical services, however given the current weather circumstances, this is not an option. I did discuss this with the patient's family at bedside. They are comfortable with ground transfer via mobile ICU. [facility] confirmed bed availability as well as that mobile ICU is in route. Nephrology did ask for placement of hemodialysis catheter prior to transfer to help facilitate continuous renal replacement therapy upon arrival in immediate fashion. I obliged. Please see separate note. Patient was treated for hyperkalemia with insulin and glucagon as well as calcium chloride prior to transfer. Family was updated. Patient continue to monitor with intent for transfer to [facility] within the next few hours. I have personally spent 35 minutes of critical care time in the direct management of this patient. This is a life/limb threatening event. This includes time spent evaluating patient, direct bedside care, chart review, placing orders, interpretation of diagnostic studies, discussion with consultants, patient, and family members, as well as other required patient management activities. This time is exclusive of all separately billable procedures, and teaching time and separate from and in addition to any other critical care service time.
--- NOTE | 2019-02-15 21:20 | XRay Report ---
SINGLE VIEW CHEST CLINICAL HISTORY: Catheter placement. FINDINGS: 2 AP, portable, semierect chest radiographs are compared to study performed earlier the [facility] day 02/15/2019. Correlation is made with chest CT dated 08/08/2009. The examination is degraded by p ortable technique and patient rotation. The patient is status post midline sternotomy and cardiac arianna ve surgery. An endotracheal tube, an enteric tube, and a left internal jugular central venous cathete r are unchanged in position. A right internal jugular central venous catheter has been placed. The ti p projects over the right atrium. The heart is enlarged. There is pulmonary vascular congestion. Ther e are small pleural effusions with bibasilar consolidation. No pneumothorax is seen. The skeletal str uctures are osteopenic. The bony thorax is grossly intact. IMPRESSION: 1. A right internal jugular central venous catheter has been placed as above. No pneumothorax is seen post procedure. 2. The remaining lines and tubes are stable. 3. Cardiomegaly and mild pulmonary vascular congestion. 4. Small pleural effusions with bibasilar consolidation. Electronically signed by: Jonnathan Hi M.D. 02/15/2019 9:18 PM
[2019-02-15] MEDS ORDERED: PIPERACILLIN/TAZOBACTAM 4.5 GM in DEXTROSE 5% 100 ML IV SCH (23:00)
[2019-02-15] MEDS ORDERED: CALCIUM CHLORIDE 10% 10 ML SYR IV ONE (23:34)
[2019-02-15] MEDS ORDERED: SODIUM BICARB 8.4% INJ 50 MEQ/50 ML SYR IV ONE (23:34)
[2019-02-15] MEDS ORDERED: SODIUM CHLORIDE 0.9% 10ML FLUSH IV ONE (23:34)
[2019-02-16] MEDS ORDERED: INSULIN GLARGINE SOLOSTAR 100 UNITS/ML 3 ML PEN SC ONE
--- NOTE | 2019-02-21 18:54 | Discharge Summary ---
Date of Service February 15, 2019 Admission HPI Per Admitting Provider 58 y/o male presented to the ED with a constant generalized abdominal pain noted upon waking this am. This is associated with nausea and vomiting x4. No diarrhea or hematemesis. He feels his abdomen is distended. No history of abdominal surgery. On a separate issue, he had a fall 3 days prior striking his left lower rib cage which is causing pain. He has been using hydrocodone at home for the pain. No chest pain, SOB, cough, F/C, headache or flu-like symptoms. Primary Care Provider: Shaka Garcia MD Admission Exam Per Admitting Provider General- adult male, in mild distress due to abdominal pain Head- atraumatic Eyes- PERRL, EOMI, anicteric ENT- oropharynx clear Neck- supple, no JVD, no adenopathy, no thyromegaly. Lungs- CTA b/l no r/r/w. tenderness with palpation over lateral ribs Left 6 and 7 Heart- irreg rhythm; no murmur, no gallop, no rub appreciated Abdomen- distended, decreased bowel sounds, + diffuse tenderness L>R, No rebound or guarding. Extremities- no pretibial edema, no calf tenderness; peripheral pulses intact Neuro- alert, oriented x 3; PERRL, EOMI; donor recruitment manager II-XII grossly intact, non-focal. Skin- warm & dry Principal Diagnosis Cardiac arrest 2/2 acute hypoxic respiratory failure 2/2 feculent aspiration 2/2 ileus/SBO Discharge Exam Constitutional: ill appearing and sedated Eyes: PERRL, conjunctivae normal, anicteric sclerae Respiratory: tachypneic; lungs clear to auscultation bilaterally Cardiovascular: RRR; no extremity edema; diminished capillary refill; cool to touch Gastrointestinal: abdomen distended and firm; hypoactive bowel sounds; no visible herniation; abdomen tender to palpation; guarding Extremity: Cool, dry. L PT pulse intact to palpation, R DP intact to doppler. Discharge Data Allergies Allergy/AdvReac Type Severity Reaction Status Date / Time azathioprine Allergy Intermediate "allergic" Verified 02/13/19 09:52 atropine Allergy Mild allergic-SKIN Verified 02/13/19 09:52 BREAKDOWN diphenoxylate Allergy Mild allergic Verified 02/13/19 09:52 amlodipine [From Lotrel] Allergy Unknown Rash Verified 02/13/19 09:52 benazepril [From Lotrel] Allergy Unknown Rash Verified 02/13/19 09:52 Consultations 02/13/19 11:37 ED Decision to Admit Stat 02/13/19 13:02 Consult General Surgery Routine 02/13/19 13:35 Consult Gastroenterology Routine 02/14/19 02:39 Consult Case Management - Discharge Planning Routine 02/15/19 07:36 Consult Anesthesiology Routine 02/15/19 08:02 Consult Nephrology Routine 02/15/19 20:41 Burn CD for patient Stat Ordered Studies 02/13/19 09:08 CT abd pelvis wo con Stat 02/14/19 14:58 US point of care ultrasound Routine 02/15/19 19:48 US point of care ultrasound Urgent Hospital Course (1) Respiratory failure with hypoxia: Philip Mendosa is a 58-year-old male with a past medical history of hypertension, hypothyroidism, GERD, Cabrales's esophagus, scleroderma, paroxysmal A. fib, aortic valve replacement, and rib fracture who presented to the emergency department with acute abdominal pain and he was admitted to the intensive care unit following a CODE BLUE due to acute respiratory failure secondary to aspiration in the setting of emesis and ileus. He was transferred to [facility] care on 02/15 for medical optimization and potential surgical intervention. Acute hypoxic respiratory failure 2/2 aspiration 2/2 emesis with ileus/SBO On admission patient had a distended abdomen with gaseous distention and findings further noted an ileus below. He had an emesis event, and developed acute hypoxic respiratory failure with cardiac arrest. CODE BLUE was called with return of cardiac function and patient was intubated and admitted to the ICU. He was treated with empiric Zosyn, IV fluid support, and stress dose steroids. He was given empiric vancomycin which was subsequently discontinued. He had an elevated lactate which peaked at 7.6, down trended, up trended briefly, and then was downtrending at time of transfer. He continued to require mechanical ventilatory support, in addition to vasopressor support as noted below. Due to persistent metabolic derangements, hyperkalemia, acute renal failure, and need for maximization before surgical intervention patient was transferred to tertiary care and was intubated requiring ventilatory support at time of transfer. Septic shock with cardiac arrest 2/2 respiratory failure Patient had a cardiac arrest and CODE BLUE following acute hypoxic respiratory failure due to emesis aspiration as noted above. In addition he had increasing cardiac pauses, and was noted to have a history of high-grade AV block with concern for Mobitz 2 in the past. Echocardiogram showed a normal LV size and an ejection fraction of 40 to 45% following asystole with rosc. He was noted to mae ve a new wall motion abnormality with basal to mid inferior hypokinesis not noted on 02/11/2017. His aortic valve prosthetic was demonstrated to be well functioning. Following admission to the intensive care unit he was started on vasopressors and was unable to be weaned from these with increasing requirements at time of discharge. His antihypertensives were held in the setting of combined septic and cardiogenic shock. He was requiring vasoactive medications at time of transfer to tertiary care. Ileus Patient presented with a new onset ileus and abdominal distention. Etiology unclear, although patient had a history of sarcoid. NG tube was placed for decompression following vomiting of fecal-like material. General surgery was consulted, but did not feel patient was a stable surgical candidate and needed to be medically optimized prior to intervention. Trans-bladder abdominal pressures were monitored, patient did not show signs of abdominal compartment syndrome, however he remained severely tympanitically distended. He continued to decompensate from a metabolic point of view and was discharged for further medical optimization and potential surgical intervention at tertiary care as noted above. ADRIANO/ARF with hyperkalemia Following admission to the ICU with septic and cardiogenic shock Mr. Mendosa had a ADRIANO with creatinine increased from a normal baseline of approximately 1.123.5 which up trended, briefly down trended, and then up trended to 4.4. He had poor urine output. BMP was trended, in addition to lactate, magnesium, and phosphorus which were optimized however patient's potassium began to uptrend. He was placed on a bicarb drip and did not have peaked T waves at time of discharge, but was likely to need dialysis within the near future. He was followed on telemetry, and transferred as above. Hypothyroidism Patient had a history of hypothyroidism, his prior p.o. meds were held in the setting of intubation and he was converted to IV levothyroxine. H&H Mr. Mendosa had a stable H&H during admission and did not show clinical signs of bleeding at time of admission or transfer. DVT prophylaxis SCDs were used for DVT prophylaxis. He did not show signs of DVT during admission. (2) Admitted to intensive care unit: (3) Hypokalemia due to excessive gastrointestinal loss of potassium: (4) Metabolic acidemia: (5) Hyperkalemia: (6) Acute kidney failure: (7) Cardiac arrest: (8) Aspiration into airway: (9) Left rib fracture: (10) Ileus: (11) Abdominal pain: (12) Esophagitis: (13) Enterocolitis: Total Time Total Time Spent Total Time Spent (In Minutes): See attending documentation Discharge Plan Discharge Items Patient Disposition: Transfer Acute [facility] Reason For Visit: ILEUS, N/V Follow-up/Referrals: Shaka Garcia MD [Primary Care Provider] - Stand-Alone Forms: [facility] Medications and DC Order Prescriptions: No Action lisinopril 5 mg tablet 5 mg PO QAM Qty: 90 RF: 3 Lyrica 100 mg capsule 100 mg PO BID Qty: 8 RF: 0 hydrocodone-acetaminophen 5-325 mg tablet 1 tab PO DAILY PRN (Reason: pain) Qty: 30 RF: 0 cholecalciferol (vitamin D3) 2,000 unit capsule 2,000 unit PO QAM Qty: 90 RF: 0 levothyroxine 100 mcg tablet 100 mcg PO QAM RF: 0 albuterol sulfate 90 mcg/actuation HFA aerosol inhaler 2 puff inhalation Q6H PRN (Reason: Shortness Of Breath) RF: 0 ferrous sulfate 325 mg (65 mg iron) Tablet,Delayed Release (Dr/Ec) 325 mg PO QAM RF: 0 cyanocobalamin (vitamin B-12) 1,000 mcg/mL Kit 1,000 mcg IM MONTHLY RF: 0 mycophenolate mofetil [CellCept] 250 mg Capsule 500 mg PO QAM RF: 0 mycophenolate mofetil [CellCept] 250 mg Capsule 1,000 mg PO HS RF: 0 finasteride 5 mg Tablet 5 mg PO HS RF: 0 ranitidine HCl 300 mg Capsule 300 mg PO BID RF: 0 pregabalin [Lyrica] 50 mg Capsule 50 mg PO HS RF: 0 silodosin [Rapaflo] 8 mg Capsule 8 mg PO HS RF: 0 Dexilant 60 mg capsule,biphase delayed releas 60 mg PO BID Qty: 60 RF: 5 Discharge Orders: Discharge Order (Routine); Ordered 02/15/19 Ordered By: Shailesh Carson Admission Data Admit Date/Time: 02/13/19 12:11 Attending Provider: Eva Cook Admit Provider: Haroon Sánchez Primary Care Provider: Shaka Garcia Other Providers: Haroon Sánchez ; Chaparro Marquez ; Ryland Li ; Philip Cross ; Efrain Reyna Other Interventions: Discharge Summary Assessment (RN) Last Done: 02/16/19 00:00 DC Date/Time DO NOT enter until pt leaves facility: 02/15/19 23:35 Resident Activity Tracking Resident Involvement: Resident Care Provided Care Provided: Adult Hospital Medicine
== END 2019-02-15 23:35 | disposition short-term general hospital (02) | DRG 388 ==
LOC: ED 08:47 → SUATTDRO 12:11 → 2N 12:11 → 1E 02-14 02:08

== ENCOUNTER 2019-04-16 16:19 | Inpatient (IN) ==
[2019-04-16] MEDS ORDERED: ONDANSETRON INJ 2 MG/ML 2 ML VIAL IV STA (16:40)
[2019-04-16] MEDS ORDERED: SODIUM CHLORIDE 0.9% 1000ML 1,000 ML IV SCH ×2 (16:45→18:00)
[2019-04-16 16:55] LABS: Basophils # (auto) 0.02 K/uL (0-0.2); Basophils % (auto) 0.2 %; Eosinophils # (auto) 0.07 K/uL (0-0.5); Eosinophils % (auto) 0.7 %; Hematocrit (blood only) 44.9 % (42-52); Immature Granulocytes # (auto) 0.03 K/uL (0.00-0.02); Immature Granulocytes % (auto) 0.3 %; Lymphocytes # (auto) 1.77 K/uL (1.2-3.4); Mean Corpuscular Hemoglobin 28.8 pg (25-34); Mean Corpuscular Hgb Conc 33.4 g/dL (32-36); Mean Corpuscular Volume 86.3 fL (80-100); Mean Platelet Volume 9.6 fL (7.4-10.4); Monocytes # (auto) 0.76 K/uL (0.11-0.59); Monocytes % (auto) 7.3 %; Neutrophils # (auto) 7.75 K/uL (1.4-6.5); Neutrophils % (auto) 74.5 %; Platelet Count 369 K/uL (130-400); RDW Coefficient of Variation 15.8 % (11.5-14.5); RDW Standard Deviation 50.4 fL (36.4-46.3)
[2019-04-16 17:20] LABS: Albumin Level 4.3 gm/dl (3.4-5.0); BUN Creatinine Ratio 13.4 (10-20); Calcium 11.9 mg/dl (8.5-10.1); Creatinine Clr Calc Pharmacy 34.5 ml/min; Est GFR (African American) 37.4; Est GFR (Non-African American) 32.2; Potassium 4.3 mmol/L (3.5-5.1)
[2019-04-16 17:23] LABS: Albumin Globulin Ratio 0.7 (0.9-2); Bilirubin,Total 0.6 mg/dl (0.2-1); Globulin 6.1 gm/dl (2.5-4.0); Total Protein 10.4 gm/dl (6.4-8.2)
--- NOTE | 2019-04-16 17:38 | Emergency Department Note ---
Entered by Chely Alexander acting as a scribe for History of Present Illness General Chief complaint: Dehydration Stated complaint: DEHYDRATION, VOMITING Source: patient History of Present Illness Provider complaint: Dehydration Onset (ago): day(s) 1 Location: abdomen Maximum Pain Intensity: 7 Relieved By: + none Exacerbated By: + eating Associated symptoms: + denies other symptoms (Abdominal pain, hematochezia, hematemesis ) and + nausea/vomiting The patient is a 59 year old male who presents to the Emergency Room with complaints of dehydration that began yesterday. The patient states that his symptoms are exacerbated by eating and not relieved by anything specific. The patient reports experiencing nausea/vomiting and notes that his girlfriend got sick about 2 hours before him. The patient denies experiencing any abdominal pain, hematochezia, or hematemesis. The patient notes that he had his large intestine removed and currently has an ostomy bag. Home Medications Home Medications Medication Instructions Recorded Confirmed Type cyanocobalamin (vitamin B-12) 1,000 mcg IM MONTHLY 07/29/18 04/16/19 History finasteride 5 mg PO HS 07/29/18 04/16/19 History mycophenolate mofetil [CellCept] 1,000 mg PO HS 07/29/18 04/16/19 History silodosin [Rapaflo] 8 mg PO HS 07/29/18 04/16/19 History hydrocodone 5 mg-acetaminophen 325 1 tab PO DAILY PRN #30 tab 08/05/18 04/16/19 Rx mg tablet cholecalciferol (vitamin D3) 50 2,000 unit PO QAM #90 cap 10/03/18 04/16/19 History mcg (2,000 unit) capsule lisinopril 5 mg tablet 5 mg PO QAM #90 tab 10/29/18 04/16/19 Rx levothyroxine 100 mcg tablet 100 mcg PO QAM 02/05/19 04/16/19 History aspirin 81 mg tablet,delayed 81 mg PO DAILY 04/06/19 04/16/19 History release duloxetine 30 mg capsule,delayed 30 mg PO DAILY 04/06/19 04/16/19 History release magnesium oxide 800 mg PO TID tab 04/06/19 04/16/19 History meclizine 12.5 mg tablet 25 mg PO TID PRN tab 04/06/19 04/16/19 History metronidazole 500 mg tablet 500 mg PO Q8H 04/06/19 04/16/19 History pregabalin 75 mg capsule 150 mg PO BID cap 04/06/19 04/16/19 History amoxicillin 875 mg-potassium 1 tab PO BID #20 tab 04/12/19 04/16/19 Rx clavulanate 125 mg tablet dexlansoprazole 60 mg 60 mg PO BID cap 04/12/19 04/16/19 History capsule,biphase delayed release mycophenolate mofetil 250 mg 500 mg PO QAM 04/12/19 04/16/19 History capsule Allergies Allergy/AdvReac Type Severity Reaction Status Date / Time azathioprine Allergy Intermediate "allergic" Verified 04/16/19 17:22 atropine Allergy Mild allergic-SKIN Verified 04/16/19 17:22 BREAKDOWN diphenoxylate Allergy Mild allergic Verified 04/16/19 17:22 amlodipine [From Lotrel] Allergy Unknown Rash Verified 04/16/19 17:22 benazepril [From Lotrel] Allergy Unknown Rash Verified 04/16/19 17:22 Past Med/Surg History Medical History (Updated 04/16/19 @ 20:02 by Jc Gutierrez) Anemia (Acute) Elevated prostate specific antigen (PSA) Negative biopsies 2006 and 2012. Prostate MRI (06/16) negative. PSA monitored yearly by urology. Gastric ulcer (Acute) Hiatal hernia Small, present on EGD (09/13). 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 Followed by urology Premature ventricular contractions Radiculopathy Right bundle branch block with left anterior fascicular block (Acute) Scleroderma dx 2009 Second degree type II atrioventricular block (Acute) Tubular adenoma of colon (Acute) 1 tubular adenoma on colonoscopy (10/12) with recommended 5 year follow up (10/17). 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 Previously evaluated at [facility]. Followed by cardiology. H/O colectomy 2018 H/O ileostomy created 01/2019 at [facility] following subtotal colectomy History of cardioversion ~2008 History of colonoscopy X MULTIPLE Family History (Updated 04/16/19 @ 19:03 by Jc Gutierrez) Grandmother (Maternal) Family history of diabetes mellitus Mother , 1989 age 1 Family hx of colon cancer Father , age 62 Myocardial infarction Denies family history of Autoimmune disease Social History (Updated 04/16/19 @ 19:02 by Jc Gutierrez) Preferred Language: Mohawk Communication Ability: Effective Meat Grinder Required: No Beliefs That Will Affect Care: None marital status: marital status details: in relationship with sig. other Current Living Situation: Significant Other Current Living Situation Comment: live in [place] current occupational status: disabled current occupation: previously worked for [employer] other: 2 children from first marriage Feels Safe at Home: Yes Safety Concerns: Feels Safe At This Time Smoking Status: Never smoker Second Hand Exposure: No ; Hx Alcohol Use: Yes Alcohol type: other Hx Substance Use: No Review of Systems See HPI for pertinent positives & negatives. and A total of 10 systems reviewed and were otherwise negative Physical Exam Vital Signs Vital Signs - 24 hr 04/16/19 16:27 04/16/19 16:50 04/16/19 17:39 Temperature Source Oral Pulse Rate [Left Finger] 98 H 96 H Respiratory Rate 16 20 22 Respiratory Effort / Characteristics Non-Labored Spontaneous Non-Labored Respiratory Depth Normal Normal Respiratory Pattern Regular Blood Pressure 89/69 L Blood Pressure [Left Arm] 105/84 99/83 L Blood Pressure Mean 75 Blood Pressure Mean [Left Arm] 91 88 Blood Pressure Position Sitting Pulse Oximetry 100 100 Oxygen Delivery Method Room Air Room Air Room Air Sepsis Recent Fever Within 48 Hours No Sepsis New/Unexplained Change in Mental Status No Sepsis Action Taken by Nursing No Action Required 04/16/19 17:43 04/16/19 18:26 04/16/19 19:00 Temperature Source Pulse Rate [Left Finger] 86 96 H Respiratory Rate 21 18 Respiratory Effort / Characteristics Respiratory Depth Respiratory Pattern Blood Pressure Blood Pressure [Left Arm] 108/86 105/78 101/82 Blood Pressure Mean Blood Pressure Mean [Left Arm] 93 87 88 Blood Pressure Position Pulse Oximetry 100 100 Oxygen Delivery Method Room Air Room Air Sepsis Recent Fever Within 48 Hours Sepsis New/Unexplained Change in Mental Status Sepsis Action Taken by Nursing 04/16/19 19:31 Temperature Source Pulse Rate [Left Finger] 91 H Respiratory Rate 18 Respiratory Effort / Characteristics Respiratory Depth Respiratory Pattern Blood Pressure Blood Pressure [Left Arm] 112/76 Blood Pressure Mean Blood Pressure Mean [Left Arm] 88 Blood Pressure Position Pulse Oximetry 100 Oxygen Delivery Method Room Air Sepsis Recent Fever Within 48 Hours Sepsis New/Unexplained Change in Mental Status Sepsis Action Taken by Nursing Vital signs reviewed. General: Chronically ill-appearing male, in no significant distress. HEENT: No scleral icterus, PERRLA, neck supple. Atraumatic. Clear nasal drainage. Dry mucous membranes. Cardiovascular: Regular rate and rhythm, no extra sounds. Pulmonary: Clear to auscultation bilaterally, normal work of breathing. Abdomen: Soft, nontender, nondistended, positive bowel sounds. Ostomy to RLQ. Healing midline incision to abdomen. Mild tenderness to LLQ. Musculoskeletal: Atraumatic, no peripheral edema. Neurologic: Patient awake alert and oriented x 3 Skin: Warm, dry, no rash Course Course 1646: Past medical records reviewed. The patient was evaluated in room C06. A complete history and physical exam was performed. 1823: I spoke with Dr. Gutierrez- Hospitalist about the patient's case and he will accept the patient for further evaluation. Administered Medications Sodium Chloride (Nss 1000ml) 1,000 mls @ 100 mls/hr IV .Q10H [facility] Stop: 05/16/19 18:59 Last Admin: 04/16/19 19:31 Dose: 100 mls/hr Documented by: [id number] Discontinued Medications Sodium Chloride (Nss 1000ml) 1,000 mls @ 999 mls/hr IV .Q1H1M [facility] Stop: 04/16/19 17:45 Last Infusion: 04/16/19 18:22 Dose: 0 mls/hr Documented by: [id number] Admin: 04/16/19 16:57 Dose: 999 mls/hr Documented by: [id number] Sodium Chloride (Nss 1000ml) 1,000 mls @ 150 mls/hr IV .Q6H40M [facility] Stop: 05/16/19 17:59 Last Admin: 04/16/19 19:15 Dose: Not Given Documented by: [id number] Sodium Chloride (Nss 1000ml) 500 mls @ 999 mls/hr IV .Q31M [facility] Stop: 04/16/19 19:29 Last Infusion: 04/16/19 19:20 Dose: 0 mls/hr Documented by: [id number] Admin: 04/16/19 18:26 Dose: 999 mls/hr Documented by: [id number] Ondansetron HCl (Zofran) 4 mg IV NOW STA Stop: 04/16/19 16:41 Last Admin: 04/16/19 16:57 Dose: 4 mg Documented by: [id number] Medical Decision Making Differential Diagnosis Differential diagnosis: Etiologies such as gastroenteritis, food borne illness, infections, a ppendicitis, diverticulitis, inflammatory bowel disease, obstruction, GI bleed, biliary pathology, cardiac process, intracranial process, as well as others were entertained. Medical Records Attestation: I reviewed the patient's medical records. Home Medications Current Medication List: was personally reviewed by me Laboratory Data Attestation: I reviewed the patient's lab results. Result diagrams: 04/16/19 16:46 04/16/19 16:46 Lab Results 04/16/19 04/16/19 04/16/19 Range/Units 16:46 16:46 16:46 WBC 10.40 (4.8-10.8) K/uL RBC 5.20 (4.7-6.1) M/uL Hgb 15.0 (14.0-18.0) g/dL Hct 44.9 (42-52) % MCV 86.3 (80-100) fL MCH 28.8 (25-34) pg MCHC 33.4 (32-36) g/dL RDW Std Deviation 50.4 H (36.4-46.3) fL RDW Coeff of Jalen 15.8 H (11.5-14.5) % Plt Count 369 (130-400) K/uL MPV 9.6 (7.4-10.4) fL Immature Gran % (Auto) 0.3 % Neut % (Auto) 74.5 % Lymph % (Auto) 17.0 % Turner % (Auto) 7.3 % Eos % (Auto) 0.7 % Baso % (Auto) 0.2 % Immature Gran # (Auto) 0.03 H (0.00-0.02) K/uL Neut # (Auto) 7.75 H (1.4-6.5) K/uL Lymph # (Auto) 1.77 (1.2-3.4) K/uL Turner # (Auto) 0.76 H (0.11-0.59) K/uL Eos # (Auto) 0.07 (0-0.5) K/uL Baso # (Auto) 0.02 (0-0.2) K/uL Sodium 132 L (136-145) mmol/L Potassium 4.3 (3.5-5.1) mmol/L Chloride 103 (98-107) mmol/L Carbon Dioxide 17 L (21-32) mmol/L Anion Gap 12.0 H (3-11) BUN 29 H (7-18) mg/dl Creatinine 2.14 H (0.6-1.4) mg/dl Est Cr Clr Drug Dosing 34.5 ml/min Est GFR ( Amer) 37.4 Est GFR (Non-Af Amer) 32.2 BUN/Creatinine Ratio 13.4 (10-20) Glucose 118 H (70-99) mg/dl Calcium 11.9 H (8.5-10.1) mg/dl Magnesium 1.8 (1.8-2.4) mg/dl Total Bilirubin 0.6 (0.2-1) mg/dl AST 21 (15-37) U/L ALT 33 (12-78) U/L Alkaline Phosphatase 208 H (45-117) U/L Total Protein 10.4 H (6.4-8.2) gm/dl Albumin 4.3 (3.4-5.0) gm/dl Globulin 6.1 H (2.5-4.0) gm/dl Albumin/Globulin Ratio 0.7 L (0.9-2) Lipase 501 H (73-393) U/L Random Cortisol 38.55 mcg/dl Imaging Data Radiologist's Impression: Radiology results as stated below per my review and the radiologist's interpretation: PA CHEST WITH ABDOMINAL SERIES CLINICAL HISTORY: Generalized abdominal pain. Vomiting. FINDINGS: 2 PA chest radiographs are compared to study dated 04/12/2019. Correlation is made with chest CT dated 08/08/2009. The patient is status post midline sternotomy and cardiac valve surgery. The heart is enlarged noting atherosclerotic calcification of the thoracic aorta. Chronic interstitial thickening and nodularity is similar to previous. No airspace consolidation or pleural effusion is identified. No pneumothorax is seen. There are healed left- sided rib fractures. Supine and erect abdominal radiographs are compared to study dated 02/14/2019 and correlated with abdominal CT dated 02/13/2019. Surgical clips are noted in the left upper quadrant. There is a nonobstructed abdominal bowel gas pattern. No evidence of intraperitoneal free air is seen. There are no abnormal abdominal calcifications. The lumbosacral spine and bony pelvis appear intact. Postoperative change is noted in the lower lumbar spine. IMPRESSION: 1. Cardiomegaly with no acute cardiopulmonary abnormality. 2. Nonobstructed abdominal bowel gas pattern. ACT 112: Negative or not required by law. Electronically signed by: Jonnathan Hi M.D. 04/16/2019 5:38 PM ECG Data Attestation: I personally reviewed and interpreted this ECG as follows: Indication: + other (Dehydration) Rate (beats per minute): 98 Rhythm: + sinus rhythm ECG Intervals/blocks: + Right Bundle branch block; no Normal QT-c (Prolonged QTC of 497) ECG ST segments: + repolarization abnormalities ECG Findings: + PVCs, + LVH and + Other (LAFB) Blood Pressure Blood Pressure Findings: Normal blood pressure Blood Pressure Disposition: further management by hospitalist MDM Narrative This patient was evaluated and appeared to be in no significant distress. Physical examination reveals a colostomy in the right lower quadrant. Patient was noted to be hypotensive at triage. He was hydrated with normal saline solution with good result. Patient's laboratory work reveals a WBC of 10.4. Patient's hemoglobin is stable at 15.0. His creatinine however is elevated at 2.14 which is up from 1.17 several days ago. Patient has a history of acute renal failure. He has not had any further vomiting after IV Zofran and fluids were initiated. Given his hypotension and elevated creatinine, the patient will be evaluated by the hospitalist for further management. He is aware of the plan and agrees. Impression & Plan Acute dehydration, Vomiting and diarrhea, Acute on chronic renal failure, Acute hypotension Discharge Plan Visit Data *Final* Discharge Date/Time: 04/16/19 20:23 Chief Complaint: Dehydration Stated Complaint: DEHYDRATION, VOMITING ED Provider: Ruby Harrell Discharge Problem: Acute dehydration, Vomiting and diarrhea, Acute on chronic renal failure, Acute hypotension Patient Disposition: Admitted As Inpatient Discharge Instructions Interventions: ED Discharge Assessment Last Done: 04/16/19 20:23 Discharge Problem: Acute on chronic renal failure Qualifiers: Acute renal failure type: unspecified Chronic kidney disease stage: unspecified stage Qualified Code(s): N17.9 - Acute kidney failure, unspecified The scribe's documentation has been prepared under my direction and personally reviewed by me in its entirety. I confirm that the note above accurately reflects all work, treatment, procedures, and medical decision making performed by me.
--- NOTE | 2019-04-16 17:40 | XRay Report ---
PA CHEST WITH ABDOMINAL SERIES CLINICAL HISTORY: Generalized abdominal pain. Vomiting. FINDINGS: 2 PA chest radiographs are compared to study dated 04/12/2019. Correlation is made with chest CT dated 08/08/2009. The patient is status post midline sternotomy and cardiac valve surgery. The heart is enl arged noting atherosclerotic calcification of the thoracic aorta. Chronic interstitial thickening and nodularity is similar to previous. No airspace consolidation or pleural effusion is identified. No p neumothorax is seen. There are healed left-sided rib fractures. Supine and erect abdominal radiographs are compared to study dated 02/14/2019 and correlated with abd ominal CT dated 02/13/2019. Surgical clips are noted in the left upper quadrant. There is a nonobstru cted abdominal bowel gas pattern. No evidence of intraperitoneal free air is seen. There are no abnor mal abdominal calcifications. The lumbosacral spine and bony pelvis appear intact. Postoperative silvetsre ge is noted in the lower lumbar spine. IMPRESSION: 1. Cardiomegaly with no acute cardiopulmonary abnormality. 2. Nonobstructed abdominal bowel gas pattern. ACT 112: Negative or not required by law. Electronically signed by: Jonnathan Hi M.D. 04/16/2019 5:38 PM
--- NOTE | 2019-04-16 18:37 | History & Physical Report ---
Date of Service April 16, 2019 Assessment & Plan (1) Acute gastroenteritis: Likely viral as significant other and his significant other's daughter all have similar symptoms that started about the same time. Given his immunocompromised status, however, will check c. diff and stool culture from ileostomy. Supportive care including IVF. If c.diff is negative still start loperamide 2mg BID to help slow his ileostomy output which is copious at this time and will lead to ongoing losses. May need to adjust the loperamide dose moving forward. Serial labs. (2) Acute kidney failure: Severely volume contracted from vomiting and copious ileostomy output. Thus, likely ATN/pre-renal in nature. Send u/a once able to void. BMP tonight, then again in am. HOLD lisinopril. I spoke with Dr Markham from nephrology - her team will consult in am. Doubt obstruction at this time. Checked bladder scan - 200cc of urine in bladder (scan was checked in the ER). Defer on renal u/s for now. (3) Hypercalcemia: Likely 2nd to acute renal failure. Should improve with fluid resuscitation alone. Hold vitamin D supplement. Check intact PTH to be complete. Repeat Ca tonight and in am. (4) Scleroderma: Longstanding diagnosis dating back to 2009. Follows with Dr Amrita Ortiz - rheumatology at [facility]. Scleroderma has affected his bowel considerably. Takes flagyl 500mg TID chronically at direction of rheumatology for his scleroderma of the bowel. Cont cellcept - 500mg am, 1000mg pm. Has f/u with rheumatology this week at [facility]. See 10/12/2018 scanned document from rheumatology visit at [facility]. (5) H/O ileostomy: Created 01/2019 at [place] due to ischemia of colon s/p subtotal colectomy. Copious output in setting of presumed viral process. If c diff is negative start loperamide 2mg BID to slow his output (he emptied the bag 10-12 times to his recollection today due to his presumed infection). Checking stool culture as well. (6) Acute dehydration: Checked cortisol - level is robust. NS bolus given by ER attending; I gave 2nd bolus. NS at 100cc/hr overnight. Adjust fluids to match ileostomy output losses. Serial labs. (7) Cabrales's esophagus: Known. Follows with Dr Li locally. Since NPO will continue PPI but give IV twice daily. He also takes H2 hanna as well. (8) BPH with obstruction/lower urinary tract symptoms: Hold alpha hanna due to low-normal BP in setting of severe dehydration. Resume once BP is improved. Cont finasteride. (9) H/O aortic valve replacement: Bovine. (10) Hypothyroidism: TSH 04/2019 wnl. Cont synthroid without any changes. (11) Myositis: Dx ~2009. Follows with rheumatology at [facility]. No myalgias, proximal muscle weakness, etc. Continue cellcept. (12) Paroxysmal atrial fibrillation: Noted. Not on chronic anticoagulation - records indicate due to "prior GI bleeding". Place on telemetry. Is in NSR at this time. (13) Chronic back pain: 3 prior lumbar back surgeries in the past at [facility] by Dr Goldman. Has radicular symptoms from l-spine disease. In setting of acute renal failure will adjust lyrica by 50% to 75mg BID. (14) Hyponatremia: 2nd to volume contraction. Should improve with NS hydration. Serial labs. (15) Elevated total protein: Acute phase reactant? 2nd to chronic inflammatory state? other? At minimum repeat LFTs in am. Alk phos also high - repeat LFTs in am. Check 25-OH vitamin D level. (16) Cough: x 1 week. Recent concern for developing pneumonia and was taking augmentin as outpatient for 3-4 days. Chest x-ray today w/o infiltrates. Lung exam w/o focal adventitious sounds. Hold augmentin. Serial exams. Consider repeat chest x-ray, 2 view, after being rehydrated to see if any infiltrates show up. (17) Cardiac arrest: x 2. This was in the setting of septic shock, respiratory failure, acidosis from ischemia of colon, etc in 01/2019. Had arrest here at [facility], then again at [facility], with successful uatsdin of spontaneous circulation. d/c summary from 01/2019 suggested he had a mildly depressed EF with a new wall motion abnormality. Takes chronic aspirin. Follows with Dr Alva [facility] cardiology. (18) Candidiasis of mouth and esophagus: nystatin 5cc qid (19) Raynaud disease: (20) DVT prophylaxis: heparin 5000 units BID extensively updated at bedside questions answered History of Present Illness Chief Complaint: concern for dehydration; nausea, vomiting, copious ostomy output Primary Care Provider: Juanjose Orozco, DO 59yo male with extensive PMH including long-standing scleroderma and myositis, followed by rheumatology at [facility]; ischemic colon 01/2019 with resulting septic shock, acute resp failure, acute renal failure, and cardiac arrest x 2; subtotal colectomy with ileostomy formation at late 01/2019; and chronic low back pain who presents with acute onset of nausea, emesis, and copious liquid stool output from his ileostomy beginning last night. Patient reports that his girlfriend with whom he lives had similar symptoms last night and his girlfriend's daughter also had GI symptoms. He has not had fever or chills. At home today he had severe dizziness/lightheadedness to the point in which he could not get up from a chair. He was not able to eat/drink anything earlier today. Vomiting stopped early this am about 5 am. The patient states that following his stay at for his subtotal colectomy he was released to [facility] in [place] in early March. He remained at the [facility] for about 1 month, then transferred to [facility] for 1 additional week of rehab. He was discharged from [facility] on April 05. Since [facility] he has had multiple appointments with GI (Dr Li's office), his PCP, and also Tiffany (saw general surgery who had done his total colectomy). He is supposed to go to [facility] rheumatology this week. In addition to the above the patient had a recent cold/URI. He was seen by his PCP on 04/12/19 and placed on augmentin. Despite the augmentin he is still coughing. Denies fever. Minimal sputum production. Appetite has been poor since seeing PCP on 04/12/2019. Patient drank 2 glasses of pedialyte late morning and had subsequent emesis. Also reports cramps in legs today. He is not voiding as much today and in fact has not voided since coming to the ER. Lastly, the patient reports that he has had to empty his ileostomy bag numerous times today. Allergies Allergy/AdvReac Type Severity Reaction Status Date / Time azathioprine Allergy Intermediate "allergic" Verified 04/16/19 17:22 atropine Allergy Mild allergic-SKIN Verified 04/16/19 17:22 BREAKDOWN diphenoxylate Allergy Mild allergic Verified 04/16/19 17:22 amlodipine [From Lotrel] Allergy Unknown Rash Verified 04/16/19 17:22 benazepril [From Lotrel] Allergy Unknown Rash Verified 04/16/19 17:22 Home Medications Home Medications Medication Instructions Recorded Confirmed Type cyanocobalamin (vitamin B-12) 1,000 mcg IM MONTHLY 07/29/18 04/16/19 History finasteride 5 mg PO HS 07/29/18 04/16/19 History mycophenolate mofetil [CellCept] 1,000 mg PO HS 07/29/18 04/16/19 History silodosin [Rapaflo] 8 mg PO HS 07/29/18 04/16/19 History hydrocodone 5 mg-acetaminophen 325 1 tab PO DAILY PRN #30 tab 08/05/18 04/16/19 Rx mg tablet cholecalciferol (vitamin D3) 50 2,000 unit PO QAM #90 cap 10/03/18 04/16/19 History mcg (2,000 unit) capsule lisinopril 5 mg tablet 5 mg PO QAM #90 tab 10/29/18 04/16/19 Rx levothyroxine 100 mcg tablet 100 mcg PO QAM 02/05/19 04/16/19 History aspirin 81 mg tablet,delayed 81 mg PO DAILY 04/06/19 04/16/19 History release duloxetine 30 mg capsule,delayed 30 mg PO DAILY 04/06/19 04/16/19 History release magnesium oxide 800 mg PO TID tab 04/06/19 04/16/19 History meclizine 12.5 mg tablet 25 mg PO TID PRN tab 04/06/19 04/16/19 History metronidazole 500 mg tablet 500 mg PO Q8H 04/06/19 04/16/19 History pregabalin 75 mg capsule 150 mg PO BID cap 04/06/19 04/16/19 History amoxicillin 875 mg-potassium 1 tab PO BID #20 tab 04/12/19 04/16/19 Rx clavulanate 125 mg tablet dexlansoprazole 60 mg 60 mg PO BID cap 04/12/19 04/16/19 History capsule,biphase delayed release mycophenolate mofetil 250 mg 500 mg PO QAM 04/12/19 04/16/19 History capsule Past Med/Surg History Medical History Anemia (Acute) Cardiac arrest Elevated prostate specific antigen (PSA) Negative biopsies 2006 and 2012. Prostate MRI (06/16) negative. PSA monitored yearly by urology. Gastric ulcer (Acute) Hiatal hernia Small, present on EGD (09/13). 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 Followed by urology Premature ventricular contractions Radiculopathy Right bundle branch block with left anterior fascicular block (Acute) Scleroderma dx 2009 Second degree type II atrioventricular block (Acute) Tubular adenoma of colon (Acute) 1 tubular adenoma on colonoscopy (10/12) with recommended 5 year follow up (10/17). 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 Previously evaluated at [facility]. Followed by cardiology. H/O colectomy 2018 H/O ileostomy created 01/2019 at [place] following subtotal colectomy History of cardioversion ~2008 History of colonoscopy X MULTIPLE Family History (Updated 04/16/19 @ 19:03 by Jc Gutierrez) Grandmother (Maternal) Family history of diabetes mellitus Mother , 1989 age 1 Family hx of colon cancer Father , age 62 Myocardial infarction Denies family history of Autoimmune disease Social History (Updated 04/16/19 @ 19:02 by Jc Gutierrez) Preferred Language: Hungarian Communication Ability: Effective Deflector Operator Required: No Beliefs That Will Affect Care: None marital status: marital status details: in relationship with sig. other Current Living Situation: Significant Other Current Living Situation Comment: live in [place] current occupational status: disabled current occupation: previously worked for [employer] other: 2 children from first marriage Feels Safe at Home: Yes Safety Concerns: Feels Safe At This Time Smoking Status: Never smoker Second Hand Exposure: No ; Hx Alcohol Use: Yes Alcohol type: other Hx Substance Use: No Review of Systems Constitutional: + fatigue, + anorexia and + weight loss (60 pounds ); no fever Eyes: + worsening vision (right eye blurry) Ear, Nose, Mouth, Throat: + dysphagia Respiratory: + cough; no dyspnea and no dyspnea on exertion Cardiovascular: no chest pain and no edema Gastrointestinal: + nausea, + vomiting and + diarrhea/loose stools; no abdominal pain and no blood in stools Genitourinary: + difficulty urinating and + decreased urination Musculoskeletal: + myalgia (this am ) Integumentary: no rash Neurologic: + generalized weakness and + radiating pain (from lumbar spine - both legs ) Psychiatric: no depression Endocrine: + fatigue no diabetes Hematologic / Lymphatic: no easy bleeding Physical Exam Constitutional: + ill appearing; + not well developed, + not well nourished, no acute distress, no altered mental status and + not healthy appearing Eyes: PERRL ENMT: Ears: no EAC abnormality and no TM abnormality Nose: no external nose abnormality and no nasal discharge Mouth: + oral mucosal abnormality (? thrush on tongue ?) and + dry oral mucous membranes Neck: trachea midline, no thyromegaly Respiratory: no respiratory distress Auscultation: + crackles (minimal- bases); no wheezes Cardiovascular: Rate/Rhythm: regular rate and regular rhythm Heart Sounds: normal S1 and normal S2 Chest (Breasts): Additional Comments: old sternal scar Gastrointestinal (Abdomen): normal bowel sounds, soft, nontender, no hepatosplenomegaly ostomy right abdomen with copious amounts of liquid stool; midline scar clean Musculoskeletal: raynaud's type changes of fingers; no joint effusions Skin: no rashes, warm and dry Neurologic: patellar DTR's 2+ bilat, sensation intact moves all extremities (strength 5/5 x 4 exts) Psychiatric: A+Ox3, euthymic affect Lymphatic: no cervical lymphadenopathy Results & Data Vital Signs (Past 12 Hours) Vital Signs Pulse Resp BP BP Pulse Ox 04/16/19 18:26 86 21 105/78 100 04/16/19 17:43 108/86 04/16/19 17:39 96 H 22 99/83 L 100 04/16/19 16:50 98 H 20 105/84 100 04/16/19 16:27 16 89/69 L Laboratory Results Laboratory Results - last 24 hr 04/16/19 04/16/19 04/16/19 16:46 16:46 16:46 WBC 10.40 RBC 5.20 Hgb 15.0 Hct 44.9 MCV 86.3 MCH 28.8 MCHC 33.4 RDW Std Deviation 50.4 H RDW Coeff of Jalen 15.8 H Plt Count 369 MPV 9.6 Immature Gran % (Auto) 0.3 Neut % (Auto) 74.5 Lymph % (Auto) 17.0 [place] % (Auto) 7.3 Eos % (Auto) 0.7 Baso % (Auto) 0.2 Immature Gran # (Auto) 0.03 H Neut # (Auto) 7.75 H Lymph # (Auto) 1.77 [place] # (Auto) 0.76 H Eos # (Auto) 0.07 Baso # (Auto) 0.02 Sodium 132 L Potassium 4.3 Chloride 103 Carbon Dioxide 17 L Anion Gap 12.0 H BUN 29 H Creatinine 2.14 H Est Cr Clr Drug Dosing 34.5 Est GFR ( Amer) 37.4 Est GFR (Non-Af Amer) 32.2 BUN/Creatinine Ratio 13.4 Glucose 118 H Calcium 11.9 H Magnesium 1.8 Total Bilirubin 0.6 AST 21 ALT 33 Alkaline Phosphatase 208 H Total Protein 10.4 H Albumin 4.3 Globulin 6.1 H Albumin/Globulin Ratio 0.7 L Lipase 501 H 25-OH Vitamin D Total PTH Intact Random Cortisol 38.55 Urine Color Urine Appearance Urine pH Ur Specific [place] Urine Protein Urine Glucose (UA) Urine Ketones Urine Blood Urine Nitrite Urine Bilirubin Urine Urobilinogen Ur Leukocyte Esterase Urine RBC Urine WBC Ur Epithelial Cells Urine Bacteria Hyaline Casts Granular Casts Stl C. diff Tox B Gene 04/16/19 04/16/19 04/16/19 20:14 21:42 21:42 WBC RBC Hgb Hct MCV MCH MCHC RDW Std Deviation RDW Coeff of Jalen Plt Count MPV Immature Gran % (Auto) Neut % (Auto) Lymph % (Auto) [place] % (Auto) Eos % (Auto) Baso % (Auto) Immature Gran # (Auto) Neut # (Auto) Lymph # (Auto) [place] # (Auto) Eos # (Auto) Baso # (Auto) Sodium 134 L Potassium 4.8 Chloride 108 H Carbon Dioxide 18 L Anion Gap 8.0 BUN 27 H Creatinine 1.64 H D Est Cr Clr Drug Dosing 46.4 Est GFR ( Amer) 51.5 Est GFR (Non-Af Amer) 44.5 BUN/Creatinine Ratio 16.3 Glucose 97 Calcium 10.6 H Magnesium Total Bilirubin AST ALT Alkaline Phosphatase Total Protein Albumin Globulin Albumin/Globulin Ratio Lipase 25-OH Vitamin D Total PTH Intact 13.0 L Random Cortisol Urine Color Urine Appearance Urine pH Ur Specific [place] Urine Protein Urine Glucose (UA) Urine Ketones Urine Blood Urine Nitrite Urine Bilirubin Urine Urobilinogen Ur Leukocyte Esterase Urine RBC Urine WBC Ur Epithelial Cells Urine Bacteria Hyaline Casts Granular Casts Stl C. diff Tox B Gene Negative Cdiff Gene 04/16/19 04/16/19 21:42 21:50 WBC RBC Hgb Hct MCV MCH MCHC RDW Std Deviation RDW Coeff of Jalen Plt Count MPV Immature Gran % (Auto) Neut % (Auto) Lymph % (Auto) [place] % (Auto) Eos % (Auto) Baso % (Auto) Immature Gran # (Auto) Neut # (Auto) Lymph # (Auto) [place] # (Auto) Eos # (Auto) Baso # (Auto) Sodium Potassium Chloride Carbon Dioxide Anion Gap BUN Creatinine Est Cr Clr Drug Dosing Est GFR ( Amer) Est GFR (Non-Af Amer) BUN/Creatinine Ratio Glucose Calcium Magnesium Total Bilirubin AST ALT Alkaline Phosphatase Total Protein Albumin Globulin Albumin/Globulin Ratio Lipase 25-OH Vitamin D Total 31.1 PTH Intact Random Cortisol Urine Color Tere Urine Appearance Clear Urine pH 5.0 Ur Specific [place] 1.025 Urine Protein Trace H Urine Glucose (UA) Negative Urine Ketones Trace H Urine Blood Negative Urine Nitrite Positive A Urine Bilirubin 1+ H Urine Urobilinogen Negative Ur Leukocyte Esterase Negative Urine RBC 0-4 Urine WBC 0-5 Ur Epithelial Cells 5-10 H Urine Bacteria 1+ H Hyaline Casts 10-30 H Granular Casts 1-5 H Stl C. diff Tox B Gene Diagnostic Findings abd x-ray series - no SBO, no lung infiltrates Code Status & VTE Plan Code Status full code VTE Prophylaxis Plan VTE Prophylaxis will be ordered: Yes PG Care Time/CCT Total # of Minutes Spent Total Time Spent with Patient: Total time spent is greater than 50% in coordination of care (as documented) at patient's floor/unit and/or counseling patient: Coding Level of Care Code 46555 Initial Inpt Care Lvl 3 Diagnoses Acute gastroenteritis K52.9 Acute kidney failure N17.9 Acute renal failure type: unspecified Hypercalcemia E83.52 Scleroderma M34.9 H/O ileostomy Z98.890 Acute dehydration E86.0 Cabrales's esophagus K22.70 Cabrales's esophagus type: without dysplasia BPH with obstruction/lower urinary tract symptoms N40.1; N13.8 H/O aortic valve replacement Z95.2 Hypothyroidism E03.9 Hypothyroidism type: acquired Myositis M60.9 Myositis location: unspecified site Myositis type: unspecified type Paroxysmal atrial fibrillation I48.0 Chronic back pain M54.5; G89.29 Back pain laterality: unspecified Back pain location: low back pain Sciatica presence: unspecified whether sciatica present Hyponatremia E87.1 Elevated total protein R77.8 Cough R05 Cardiac arrest I46.9 Candidiasis of mouth and esophagus B37.81; B37.0 Raynaud disease I73.00 Raynaud?s-associated gangrene presence: without gangrene DVT prophylaxis Z29.9 (1) Acute kidney failure Acute renal failure type: unspecified Qualified Code(s): N17.9 - Acute kidney failure, unspecified (2) Hypothyroidism Hypothyroidism type: acquired Qualified Code(s): E03.9 - Hypothyroidism, unspecified (3) Myositis Myositis location: unspecified site Myositis type: unspecified type Qualified Code(s): M60.9 - Myositis, unspecified (4) Chronic back pain Back pain laterality: unspecified Back pain location: low back pain Sciatica presence: unspecified whether sciatica present Qualified Code(s): M54.5 - Low back pain; G89.29 - Other chronic pain (5) Cabrales's esophagus Cabrales's esophagus type: without dysplasia Qualified Code(s): K22.70 - Cabrales's esophagus without dysplasia (6) Raynaud disease Raynaud?s-associated gangrene presence: without gangrene Qualified Code(s): I73.00 - Raynaud's syndrome without gangrene
[2019-04-16] MEDS ORDERED: SODIUM CHLORIDE 0.9% 1000ML 500 ML IV ONE (18:59)
[2019-04-16] MEDS: SODIUM CHLORIDE 0.9% 1000ML 1,000 ML IV SCH (19:31)
[2019-04-16 20:07] LABS: Magnesium 1.8 mg/dl (1.8-2.4)
[2019-04-16] MEDS ORDERED: ONDANSETRON INJ 2 MG/ML 2 ML VIAL IV PRN (20:40)
[2019-04-16] MEDS ORDERED: ACETAMINOPHEN 325 MG TAB PO PRN (20:40)
[2019-04-16] MEDS: FINASTERIDE 5 MG TAB PO SCH (21:30)
[2019-04-16] MEDS: PANTOprazole 40 MG in SYRINGE 0 ML IV SCH (21:30)
[2019-04-16] MEDS: metroNIDAZOLE 500 MG/100 ML BAG IV SCH (21:30)
[2019-04-16] MEDS: MYCOPHENOLATE MOFETIL 250 MG CAP PO SCH (21:30)
[2019-04-16] MEDS: PREGABALIN 75 MG CAP PO SCH (21:33)
[2019-04-16 22:09] LABS: Appearance Urine Clear (Clear); Blood Urine Negative (Negative); Color Urine Amber; Glucose Urine UA Negative (Negative); Ketones Urine Trace (Negative); Leukocyte Esterase Urine Negative (Negative); Nitrite Urine Positive (Negative); Protein Urine Trace (Negative); Specific Gravity Urine 1.025 (1.000-1.030); Urobilinogen Urine Negative (Negative)
[2019-04-16 22:10] LABS: BUN Creatinine Ratio 16.3 (10-20); Calcium 10.6 mg/dl (8.5-10.1); Creatinine Clr Calc Pharmacy 46.4 ml/min; Est GFR (African American) 51.5; Est GFR (Non-African American) 44.5; Potassium 4.8 mmol/L (3.5-5.1)
[2019-04-16 22:11] LABS: Bilirubin Urine 1+ (Negative)
[2019-04-16 22:13] LABS: Ictotest Urine Positive (Negative)
[2019-04-16 22:16] LABS: Bacteria Urine 1+ (Negative); RBC Urine 0-4 /hpf (0-4); WBC Urine 0-5 /hpf (0-5)
[2019-04-16] MEDS ORDERED: LOPERAMIDE HCL 2 MG CAP PO ONE (23:00)
[2019-04-17] MEDS: metroNIDAZOLE 500 MG/100 ML BAG IV SCH ×3 (05:55→21:11)
[2019-04-17] MEDS: SODIUM CHLORIDE 0.9% 1000ML 1,000 ML IV SCH ×2 (06:19→15:28)
[2019-04-17] MEDS: LEVOTHYROXINE SODIUM 100 MCG TABLET PO SCH (06:19)
[2019-04-17 06:29] LABS: Hematocrit (blood only) 36.3 % (42-52); Hemoglobin 11.9 g/dL (14.0-18.0); Mean Corpuscular Hemoglobin 28.1 pg (25-34); Mean Corpuscular Hgb Conc 32.8 g/dL (32-36); Mean Corpuscular Volume 85.6 fL (80-100); Mean Platelet Volume 9.4 fL (7.4-10.4); Platelet Count 288 K/uL (130-400); RDW Coefficient of Variation 15.9 % (11.5-14.5); RDW Standard Deviation 49.8 fL (36.4-46.3); Red Blood Count 4.24 M/uL (4.7-6.1); White Blood Count 5.72 K/uL (4.8-10.8)
[2019-04-17 07:00] LABS: Alanine Aminotransferase 23 U/L (12-78); Albumin Level 3.2 gm/dl (3.4-5.0); Aspartate Aminotransferase 16 U/L (15-37); BUN Creatinine Ratio 17.1 (10-20); Bilirubin Direct < 0.1 mg/dl (0-0.2); Blood Urea Nitrogen 24 mg/dl (7-18); Calcium 10.1 mg/dl (8.5-10.1); Carbon Dioxide 17 mmol/L (21-32); Chloride 110 mmol/L (98-107); Creatinine Clr Calc Pharmacy 54.4 ml/min; Est GFR (African American) 62.4; Est GFR (Non-African American) 53.8; Glucose 101 mg/dl (70-99); Potassium 4.6 mmol/L (3.5-5.1); Sodium 136 mmol/L (136-145)
[2019-04-17 07:08] LABS: Alkaline Phosphatase 154 U/L (45-117); Bilirubin,Total 0.5 mg/dl (0.2-1); Total Protein 7.7 gm/dl (6.4-8.2)
[2019-04-17] MEDS ORDERED: LOPERAMIDE HCL 2 MG CAP PO SCH (09:00)
[2019-04-17] MEDS: DULOXETINE HCL 30 MG CAP PO SCH (10:04)
[2019-04-17] MEDS: HEPARIN SOD 5,000 UNIT/0.5 ML VIAL SQ SCH ×2 (10:05→21:13)
[2019-04-17] MEDS: PANTOprazole 40 MG in SYRINGE 0 ML IV SCH ×2 (10:06→21:12)
[2019-04-17] MEDS: MYCOPHENOLATE MOFETIL 250 MG CAP PO SCH ×2 (10:07→21:13)
[2019-04-17] MEDS: ASPIRIN 81 MG ECTAB PO SCH (10:07)
[2019-04-17] MEDS: NYSTATIN SUSP 500,000 U/5 ML UDC PO SCH ×4 (10:08→21:12)
[2019-04-17] MEDS: PREGABALIN 75 MG CAP PO SCH ×2 (10:11→21:11)
--- NOTE | 2019-04-17 10:54 | Nephrology Consultation ---
Date of Consultation April 17, 2019 Assessment & Plan (1) Acute kidney injury: Mr. Mendosa Admitted to the hospital acute gastroenteritis and found to have anuria acute kidney injury and gap metabolic acidosis. Renal function rapidly improved with IV hydration and improvement GI symptoms. Started to have decent urine output. Acute kidney injury most likely prerenal with dehydration volume depletion in the setting gastroenteritis as rapidly improved with hydration only. --would not consider any other workup at this time --continue with IV normal saline at 100 mL/hour monitor renal function with daily renal panel, expect renal function to stay stable on continue to improve. --hemodynamic support --considering repeated severe acute kidney injury, patient does have risk for chronic kidney disease and recurrent acute kidney injury in future Will sign off. Please contract if any further assistance is needed. Thank you for the consult. (2) Metabolic acidosis: (3) Anuria: (4) Acute gastroenteritis: History of Present Illness Reason for Consultation: ADRIANO, volume depletion, metabolic acidosis. Attending Physician: Toño Harper, History of Present Illness Mr. Mendosa is a 59yo gentleman with extensive PMH including long-standing scleroderma and myositis, recent acute kidney injury in the setting of sepsis, admitted to the hospital yesterday with acute gastroenteritis, AK and volume depletion. Nephrology consult was requested to manage acute kidney injury and electrolyte abnormality. Electronic medical records are reviewed in detail during patient's visit. Mr. Mendosa presents to the hospital yesterday with acute onset of nausea vomiting and loose ostomy output since the night before. Some of his family members also had similar symptoms. He was thought to have viral gastroenteritis and admitted for further management. On admission he was found to be significantly volume depleted, blood pressure was relatively low. Lab showed acute kidney injury, creatinine was 2.1, had gap metabolic acidosis with bicarb around 17. Urinalysis was negative for hematuria or significant proteinuria, had granular cast on urine microscopy. Was started on IV normal saline and currently getting 100 mL/hour. He reported decreased urine output prior to arrival and several hours since admission he did not have any urine output however over last 12 hours he started to make urine and voided 3 times already. Renal function rapidly improved with IV hydration, creatinine down to 1.4 this morning, electrolyte also improving. Still nauseous but vomiting resolved and his ostomy output is less watery. Has extensive past medical history including long history of scleroderma and myositis followed by rheumatology at [facility]; Had Isschemic colon 01/2019 with resulting septic shock, acute resp failure, acute renal failure, and cardiac arrest x 2; subtotal colectomy with ileostomy formation at [facility] late 01/2019; creatinine was above 4 which eventually improved without needing dialysis and renal function went back to baseline with creatinine 1.1-1.2. Prior to the AK I his renal function was normal. His feeling slightly better as vomiting stopped and diarrhea slightly improving. Allergies Allergy/AdvReac Type Severity Reaction Status Date / Time azathioprine Allergy Intermediate "allergic" Verified 04/16/19 17:22 atropine Allergy Mild allergic-SKIN Verified 04/16/19 17:22 BREAKDOWN diphenoxylate Allergy Mild allergic Verified 04/16/19 17:22 amlodipine [From Lotrel] Allergy Unknown Rash Verified 04/16/19 17:22 benazepril [From Lotrel] Allergy Unknown Rash Verified 04/16/19 17:22 Home Medications Home Medications Medication Instructions Recorded Confirmed Type cyanocobalamin (vitamin B-12) 1,000 mcg IM MONTHLY 07/29/18 04/16/19 History finasteride 5 mg PO HS 07/29/18 04/16/19 History mycophenolate mofetil [CellCept] 1,000 mg PO HS 07/29/18 04/16/19 History silodosin [Rapaflo] 8 mg PO HS 07/29/18 04/16/19 History hydrocodone 5 mg-acetaminophen 325 1 tab PO DAILY PRN #30 tab 08/05/18 04/16/19 Rx mg tablet cholecalciferol (vitamin D3) 50 2,000 unit PO QAM #90 cap 10/03/18 04/16/19 History mcg (2,000 unit) capsule lisinopril 5 mg tablet 5 mg PO QAM #90 tab 10/29/18 04/16/19 Rx levothyroxine 100 mcg tablet 100 mcg PO QAM 02/05/19 04/16/19 History aspirin 81 mg tablet,delayed 81 mg PO DAILY 04/06/19 04/16/19 History release duloxetine 30 mg capsule,delayed 30 mg PO DAILY 04/06/19 04/16/19 History release magnesium oxide 800 mg PO TID tab 04/06/19 04/16/19 History meclizine 12.5 mg tablet 25 mg PO TID PRN tab 04/06/19 04/16/19 History metronidazole 500 mg tablet 500 mg PO Q8H 04/06/19 04/16/19 History pregabalin 75 mg capsule 150 mg PO BID cap 04/06/19 04/16/19 History amoxicillin 875 mg-potassium 1 tab PO BID #20 tab 04/12/19 04/16/19 Rx clavulanate 125 mg tablet dexlansoprazole 60 mg 60 mg PO BID cap 04/12/19 04/16/19 History capsule,biphase delayed release mycophenolate mofetil 250 mg 500 mg PO QAM 04/12/19 04/16/19 History capsule Patient History Medical History Anemia (Acute) Cardiac arrest Elevated prostate specific antigen (PSA) Negative biopsies 2006 and 2012. Prostate MRI (06/16) negative. PSA monitored yearly by urology. Gastric ulcer (Acute) Hiatal hernia Small, present on EGD (09/13). 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 Followed by urology Premature ventricular contractions Radiculopathy Right bundle branch block with left anterior fascicular block (Acute) Scleroderma dx 2009 Second degree type II atrioventricular block (Acute) Tubular adenoma of colon (Acute) 1 tubular adenoma on colonoscopy (10/12) with recommended 5 year follow up (10/17). 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 Previously evaluated at [facility]. Followed by cardiology. H/O colectomy 2018 H/O ileostomy created 01/2019 at [place] following subtotal colectomy History of cardioversion ~2008 History of colonoscopy X MULTIPLE Family History (Updated 04/16/19 @ 19:03 by Jc Gutierrez) Grandmother (Maternal) Family history of diabetes mellitus Mother , 1989 age 1 Family hx of colon cancer Father , age 62 Myocardial infarction Denies family history of Autoimmune disease Social History (Updated 04/16/19 @ 19:02 by Jc Gutierrez) Preferred Language: Sierra Leonean Communication Ability: Effective Fish Protector Required: No Beliefs That Will Affect Care: None marital status: Single marital status details: in relationship with sig. other Current Living Situation: Significant Other Current Living Situation Comment: live in [place] current occupational status: disabled current occupation: previously worked for [employer] other: 2 children from first marriage Feels Safe at Home: Yes Safety Concerns: Feels Safe At This Time Smoking Status: Never smoker Second Hand Exposure: No ; Hx Alcohol Use: Yes Alcohol type: other Hx Substance Use: No Review of Systems Review of Systems: All systems reviewed & are unremarkable except as noted in HPI & below Physical Exam Constitutional: + ill appearing and + malnourished; no acute distress Eyes: PERRL, conjunctivae normal, anicteric sclerae ENMT: external ear and nose normal, oropharynx normal Ears: no hearing impairment Neck: trachea midline Respiratory: normal respiratory effort, lungs clear to auscultation no cough Auscultation: no crackles, no rales and no wheezes Cardiovascular: RRR, no murmur, no edema Gastrointestinal (Abdomen): normal bowel sounds, soft, nontender, no hepatosplenomegaly Percussion/Palpation: abdomen nontender, no guarding and abdomen not rigid Musculoskeletal: Extremities: extremities normal to inspection Gait: normal gait Skin: no rashes, warm and dry Neurologic: moves all extremities and awake Psychiatric: A+Ox3, euthymic affect Results & Data Vital Signs (Past 12 Hours) Vital Signs Temp Pulse Pulse Resp BP Pulse Ox 04/17/19 07:37 36.5 C 78 16 98/66 L 97 04/17/19 07:35 84 04/17/19 03:03 36.5 C 76 14 101/71 96 04/16/19 23:34 91 H 04/16/19 23:22 36.4 C L 87 16 111/78 96 PG Care Time/CCT Total # of Minutes Spent Total Time Spent with Patient: Total time spent is greater than 50% in coordination of care (as documented) at patient's floor/unit and/or counseling patient: Coding Level of Care Code 80186 Inpt Consult Level 5 Diagnoses Acute kidney injury N17.9 Metabolic acidosis E87.2 Anuria R34 Acute gastroenteritis K52.9
--- NOTE | 2019-04-17 14:47 | Hospitalist Progress Note ---
Date of Service April 17, 2019 Assessment & Plan (1) Acute gastroenteritis: Likely viral as significant other and his significant other's daughter all have similar symptoms that started about the same time. C diff negative, stool culture pending increase Imodium to 2mg q6, slightly less output today but still more than normal eating better though which is improvement no abdominal pain, no nausea (2) Acute kidney failure: Severely volume contracted from vomiting and copious ileostomy output. Thus, likely ATN/pre-renal in nature. Cr improved to 1.4 continue aggressive IV fluids as ostomy output more than normal eating and drinking but not drinking enough to keep up with ostomy losses HOLD lisinopril. appreciate input from Dr. Markham check BMP in the morning (3) Hypercalcemia: Likely 2nd to acute renal failure. returned to normal with aggressive IV fluids Ca is 10.1 today (4) Scleroderma: Longstanding diagnosis dating back to 2009. Follows with Dr Amrita Ortiz - rheumatology at [facility]. Scleroderma has affected his bowel considerably. Takes flagyl 500mg TID chronically at direction of rheumatology for his scleroderma of the bowel. Cont cellcept - 500mg am, 1000mg pm. Has f/u with rheumatology on 04/[address] [facility]. discussed that we will see if he can make it tomorrow morning See 10/12/2018 scanned document from rheumatology visit at [facility]. (5) H/O ileostomy: Created 01/2019 at [place] due to ischemia of colon s/p subtotal colectomy. Copious output in setting of presumed viral process. C diff negative, stool cultures pending (6) Acute dehydration: Checked cortisol - level is robust. two 1 liter boluses given on admission continue NS at 100cc/hr Adjust fluids to match ileostomy output losses. Serial labs. (7) Cabrales's esophagus: Known. Follows with Dr Li locally. give him diet today (8) BPH with obstruction/lower urinary tract symptoms: Hold alpha hanna due to low-normal BP in setting of severe dehydration. Resume once BP is improved. Cont finasteride. (9) H/O aortic valve replacement: Bovine. (10) Hypothyroidism: TSH 04/2019 wnl. Cont synthroid without any changes. (11) Myositis: Dx ~2009. Follows with rheumatology at [facility]. No myalgias, proximal muscle weakness, etc. Continue cellcept. (12) Paroxysmal atrial fibrillation: Noted. Not on chronic anticoagulation - records indicate due to "prior GI bleeding". continues to be in NSR (13) Chronic back pain: 3 prior lumbar back surgeries in the past at [facility] by Dr Goldman. Has radicular symptoms from l-spine disease. In setting of acute renal failure will adjust lyrica by 50% to 75mg BID. (14) Hyponatremia: 2nd to volume contraction. resolved today, up to 136 (15) Elevated total protein: likely acute phase reactant down to normal today (16) Cough: x 1 week. Recent concern for developing pneumonia and was taking augmentin as outpatient for 3-4 days. Chest x-ray on admission w/o infiltrates. lungs clear Hold augmentin. (17) Cardiac arrest: x 2. This was in the setting of septic shock, respiratory failure, acidosis from ischemia of colon, etc in 01/2019. Had arrest here at [facility], then again at [facility], with successful jewish of spontaneous circulation. d/c summary from 01/2019 suggested he had a mildly depressed EF with a new wall motion abnormality. Takes chronic aspirin. Follows with Dr Al[facility] cardiology. (18) Candidiasis of mouth and esophagus: nystatin 5cc qid (19) Raynaud disease: (20) DVT prophylaxis: heparin 5000 units BID Admission and Anticipated Discharge Date Admission Date: April 16, 2019 Anticipated date of discharge: 04/18/19 Subjective patient feeling better, able to keep some food down today no abdominal pain, no nausea still with increased output from ostomy breathing well, no fever/chills discussed with Dr. Markham, appreciate her input reviewed chart reviewed labs, Cr is 1.4, CO2 is low at 17 from GI losses Review of Systems Review of Systems: All systems reviewed & are unremarkable except as noted in HPI & below Constitutional: + body aches, + fatigue and + weakness; no fever Respiratory: no cough and no dyspnea Cardiovascular: no chest pain, no syncope and no edema Gastrointestinal: + diarrhea/loose stools; no abdominal pain, no nausea, no vomiting and no constipation Physical Exam Constitutional: WD/WN, vitals as above Eyes: PERRL, conjunctivae normal, anicteric sclerae ENMT: external ear and nose normal, oropharynx normal Neck: trachea midline, no thyromegaly Respiratory: normal respiratory effort, lungs clear to auscultation Cardiovascular: RRR, no murmur, no edema Gastrointestinal (Abdomen): normal bowel sounds, soft, nontender, no hepatosplenomegaly (Liquid in ostomy bag) Musculoskeletal: no cyanosis or clubbing, extremities motor strength 5/5 Skin: no rashes, warm and dry Neurologic: patellar DTR's 2+ bilat, sensation intact and PERRL, EOMI, accomm odation nl, no face palsy, no dysarthria Psychiatric: A+Ox3, euthymic affect Lymphatic: no cervical or axillary lymphadenopathy Results & Data ([facility]) Vital Signs (Past 12 Hours) Vital Signs Temp Pulse Pulse Resp BP Pulse Ox 04/17/19 11:43 36.5 C 82 18 102/71 98 04/17/19 07:37 36.5 C 78 16 98/66 L 97 04/17/19 07:35 84 04/17/19 03:03 36.5 C 76 14 101/71 96 Laboratory Results Laboratory Results - last 24 hr 04/16/19 04/16/19 04/16/19 16:46 16:46 16:46 WBC 10.40 RBC 5.20 Hgb 15.0 Hct 44.9 MCV 86.3 MCH 28.8 MCHC 33.4 RDW Std Deviation 50.4 H RDW Coeff of Jalen 15.8 H Plt Count 369 MPV 9.6 Immature Gran % (Auto) 0.3 Neut % (Auto) 74.5 Lymph % (Auto) 17.0 Emmet % (Auto) 7.3 Eos % (Auto) 0.7 Baso % (Auto) 0.2 Immature Gran # (Auto) 0.03 H Neut # (Auto) 7.75 H Lymph # (Auto) 1.77 Emmet # (Auto) 0.76 H Eos # (Auto) 0.07 Baso # (Auto) 0.02 Sodium 132 L Potassium 4.3 Chloride 103 Carbon Dioxide 17 L Anion Gap 12.0 H BUN 29 H Creatinine 2.14 H Est Cr Clr Drug Dosing 34.5 Est GFR ( Amer) 37.4 Est GFR (Non-Af Amer) 32.2 BUN/Creatinine Ratio 13.4 Glucose 118 H Calcium 11.9 H Magnesium 1.8 Total Bilirubin 0.6 Direct Bilirubin AST 21 ALT 33 Alkaline Phosphatase 208 H Total Protein 10.4 H Albumin 4.3 Globulin 6.1 H Albumin/Globulin Ratio 0.7 L Lipase 501 H 25-OH Vitamin D Total PTH Intact Random Cortisol 38.55 Urine Color Urine Appearance Urine pH Ur Specific [place] Urine Protein Urine Glucose (UA) Urine Ketones Urine Blood Urine Nitrite Urine Bilirubin Urine Urobilinogen Ur Leukocyte Esterase Urine RBC Urine WBC Ur Epithelial Cells Urine Bacteria Hyaline Casts Granular Casts Stl C. diff Tox B Gene 04/16/19 04/16/19 04/16/19 20:14 21:42 21:42 WBC RBC Hgb Hct MCV MCH MCHC RDW Std Deviation RDW Coeff of Jalen Plt Count MPV Immature Gran % (Auto) Neut % (Auto) Lymph % (Auto) Emmet % (Auto) Eos % (Auto) Baso % (Auto) Immature Gran # (Auto) Neut # (Auto) Lymph # (Auto) Emmet # (Auto) Eos # (Auto) Baso # (Auto) Sodium 134 L Potassium 4.8 Chloride 108 H Carbon Dioxide 18 L Anion Gap 8.0 BUN 27 H Creatinine 1.64 H D Est Cr Clr Drug Dosing 46.4 Est GFR ( Amer) 51.5 Est GFR (Non-Af Amer) 44.5 BUN/Creatinine Ratio 16.3 Glucose 97 Calcium 10.6 H Magnesium Total Bilirubin Direct Bilirubin AST ALT Alkaline Phosphatase Total Protein Albumin Globulin Albumin/Globulin Ratio Lipase 25-OH Vitamin D Total PTH Intact 13.0 L Random Cortisol Urine Color Urine Appearance Urine pH Ur Specific [place] Urine Protein Urine Glucose (UA) Urine Ketones Urine Blood Urine Nitrite Urine Bilirubin Urine Urobilinogen Ur Leukocyte Esterase Urine RBC Urine WBC Ur Epithelial Cells Urine Bacteria Hyaline Casts Granular Casts Stl C. diff Tox B Gene Negative Cdiff Gene 04/16/19 04/16/19 04/17/19 21:42 21:50 06:13 WBC RBC Hgb Hct MCV MCH MCHC RDW Std Deviation RDW Coeff of Jalen Plt Count MPV Immature Gran % (Auto) Neut % (Auto) Lymph % (Auto) Emmet % (Auto) Eos % (Auto) Baso % (Auto) Immature Gran # (Auto) Neut # (Auto) Lymph # (Auto) Emmet # (Auto) Eos # (Auto) Baso # (Auto) Sodium 136 Potassium 4.6 Chloride 110 H Carbon Dioxide 17 L Anion Gap 8.0 BUN 24 H Creatinine 1.40 Est Cr Clr Drug Dosing 54.4 Est GFR ( Amer) 62.4 Est GFR (Non-Af Amer) 53.8 BUN/Creatinine Ratio 17.1 Glucose 101 H Calcium 10.1 Magnesium Total Bilirubin 0.5 Direct Bilirubin < 0.1 AST 16 ALT 23 Alkaline Phosphatase 154 H Total Protein 7.7 D Albumin 3.2 L Globulin Albumin/Globulin Ratio Lipase 25-OH Vitamin D Total 31.1 PTH Intact Random Cortisol Urine Color Tere Urine Appearance Clear Urine pH 5.0 Ur Specific [place] 1.025 Urine Protein Trace H Urine Glucose (UA) Negative Urine Ketones Trace H Urine Blood Negative Urine Nitrite Positive A Urine Bilirubin 1+ H Urine Urobilinogen Negative Ur Leukocyte Esterase Negative Urine RBC 0-4 Urine WBC 0-5 Ur Epithelial Cells 5-10 H Urine Bacteria 1+ H Hyaline Casts 10-30 H Granular Casts 1-5 H Stl C. diff Tox B Gene 04/17/19 06:13 WBC 5.72 RBC 4.24 L Hgb 11.9 L D Hct 36.3 L MCV 85.6 MCH 28.1 MCHC 32.8 RDW Std Deviation 49.8 H RDW Coeff of Jalen 15.9 H Plt Count 288 MPV 9.4 Immature Gran % (Auto) Neut % (Auto) Lymph % (Auto) Emmet % (Auto) Eos % (Auto) Baso % (Auto) Immature Gran # (Auto) Neut # (Auto) Lymph # (Auto) Emmet # (Auto) Eos # (Auto) Baso # (Auto) Sodium Potassium Chloride Carbon Dioxide Anion Gap BUN Creatinine Est Cr Clr Drug Dosing Est GFR ( Amer) Est GFR (Non-Af Amer) BUN/Creatinine Ratio Glucose Calcium Magnesium Total Bilirubin Direct Bilirubin AST ALT Alkaline Phosphatase Total Protein Albumin Globulin Albumin/Globulin Ratio Lipase 25-OH Vitamin D Total PTH Intact Random Cortisol Urine Color Urine Appearance Urine pH Ur Specific [place] Urine Protein Urine Glucose (UA) Urine Ketones Urine Blood Urine Nitrite Urine Bilirubin Urine Urobilinogen Ur Leukocyte Esterase Urine RBC Urine WBC Ur Epithelial Cells Urine Bacteria Hyaline Casts Granular Casts Stl C. diff Tox B Gene Medications Administered Current Inpatient Medications Acetaminophen (Tylenol) 650 mg PO Q4H PRN PRN Reason: Pain or Fever Stop: 05/16/19 20:39 Aspirin (Ecotrin Ectab) 81 mg PO DAILY [facility] Stop: 05/17/19 08:59 Last Admin: 04/17/19 10:07 Dose: 81 mg Documented by: Duloxetine HCl (Cymbalta) 30 mg PO DAILY JOE Stop: 05/17/19 08:59 Last Admin: 04/17/19 10:04 Dose: Not Given Documented by: Finasteride (Proscar) 5 mg PO HS JOE Stop: 05/16/19 20:59 Last Admin: 04/16/19 21:30 Dose: 5 mg Documented by: Heparin Sodium (Porcine) (Heparin Sodium (Porcine)) 5,000 units SQ Q12 JOE Stop: 05/17/19 08:59 Last Admin: 04/17/19 10:05 Dose: 5,000 units Documented by: Sodium Chloride (Nss 1000ml) 1,000 mls @ 100 mls/hr IV .Q10H JOE Stop: 05/16/19 18:59 Last Admin: 04/17/19 06:19 Dose: 100 mls/hr Documented by: Pantoprazole Sodium 40 mg/ (Syringe) 10 mls @ 5 mls/min IV BID@0900,2100 JOE Stop: 05/16/19 20:59 Last Admin: 04/17/19 10:06 Dose: 5 mls/min Documented by: Metronidazole (Flagyl) 500 mg in 100 mls @ 100 mls/hr IV Q8H JOE Stop: 05/16/19 20:59 Last Infusion: 04/17/19 14:43 Dose: Infused Documented by: Levothyroxine Sodium (Synthroid) 100 mcg PO DAILYBB JOE Stop: 05/17/19 06:29 Last Admin: 04/17/19 06:19 Dose: 100 mcg Documented by: Loperamide HCl (Imodium) 2 mg PO Q6 JOE Stop: 05/17/19 17:59 Mycophenolate Mofetil (Cellcept) 500 mg PO QAM JOE Stop: 05/17/19 08:59 Last Admin: 04/17/19 10:07 Dose: 500 mg Documented by: Mycophenolate Mofetil (Cellcept) 1,000 mg PO HS JOE Stop: 05/16/19 20:59 Last Admin: 04/16/19 21:30 Dose: 1,000 mg Documented by: Nystatin (Mycostatin) 5 ml PO QID JOE Stop: 04/27/19 08:59 Last Admin: 04/17/19 13:28 Dose: 5 ml Documented by: Ondansetron HCl (Zofran) 4 mg IV Q6H PRN PRN Reason: Nausea Stop: 05/16/19 20:39 Pregabalin (Lyrica) 75 mg PO BID JOE Stop: 05/16/19 20:59 Last Admin: 04/17/19 10:11 Dose: 75 mg Documented by: PG Care Time/CCT Total # of Minutes Spent Total Time Spent with Patient: Total time spent is greater than 50% in coordination of care (as documented) at patient's floor/unit and/or counseling patient: Coding Level of Care Code 81986 Subseq Hosp Care Lvl 3 Diagnoses Acute gastroenteritis K52.9 Acute kidney failure N17.9 Acute renal failure type: unspecified Hypercalcemia E83.52 Scleroderma M34.9 H/O ileostomy Z98.890 Acute dehydration E86.0 Cabrales's esophagus K22.70 Cabrales's esophagus type: without dysplasia BPH with obstruction/lower urinary tract symptoms N40.1; N13.8 H/O aortic valve replacement Z95.2 Hypothyroidism E03.9 Hypothyroidism type: acquired Myositis M60.9 Myositis location: unspecified site Myositis type: unspecified type Paroxysmal atrial fibrillation I48.0 Chronic back pain M54.5; G89.29 Back pain laterality: unspecified Back pain location: low back pain Sciatica presence: unspecified whether sciatica present Hyponatremia E87.1 Elevated total protein R77.8 Cough R05 Cardiac arrest I46.9 Candidiasis of mouth and esophagus B37.81; B37.0 Raynaud disease I73.00 Raynaud?s-associated gangrene presence: without gangrene DVT prophylaxis Z29.9 (1) Acute kidney failure Acute renal failure type: unspecified Qualified Code(s): N17.9 - Acute kidney failure, unspecified (2) Raynaud disease Raynaud?s-associated gangrene presence: without gangrene Qualified Code(s): I73.00 - Raynaud's syndrome without gangrene (3) Hypothyroidism Hypothyroidism type: acquired Qualified Code(s): E03.9 - Hypothyroidism, unspecified (4) Myositis Myositis location: unspecified site Myositis type: unspecified type Qualified Code(s): M60.9 - Myositis, unspecified (5) Chronic back pain Back pain laterality: unspecified Back pain location: low back pain Sciatica presence: unspecified whether sciatica present Qualified Code(s): M54.5 - Low back pain; G89.29 - Other chronic pain (6) Cabrales's esophagus Cabrales's esophagus type: without dysplasia Qualified Code(s): K22.70 - Cabrales's esophagus without dysplasia
[2019-04-17] MEDS: LOPERAMIDE HCL 2 MG CAP PO SCH ×2 (17:40→23:33)
[2019-04-17] MEDS: FINASTERIDE 5 MG TAB PO SCH (21:12)
[2019-04-18] MEDS: SODIUM CHLORIDE 0.9% 1000ML 1,000 ML IV SCH ×2 (03:36→10:50)
[2019-04-18] MEDS: LOPERAMIDE HCL 2 MG CAP PO SCH ×2 (05:25→12:39)
[2019-04-18] MEDS: LEVOTHYROXINE SODIUM 100 MCG TABLET PO SCH (05:25)
[2019-04-18] MEDS: metroNIDAZOLE 500 MG/100 ML BAG IV SCH ×2 (05:25→12:39)
--- NOTE | 2019-04-18 05:44 | Electrocardiogram Report ---
Test Reason : Blood Pressure : / mmHG Vent. Rate : 098 BPM Atrial Rate : 098 BPM P-R Int : 190 ms QRS Dur : 166 ms QT Int : 390 ms P-R-T Axes : 079 -73 090 degrees QTc Int : 497 ms Sinus rhythm with occasional Premature ventricular complexes Right bundle branch block Left anterior fascicular block Bifascicular block Left ventricular hypertrophy with repolarization abnormality Abnormal ECG When compared with ECG of 15-FEB-2019 11:06, Premature ventricular complexes are now Present T wave amplitude has increased in Inferior leads T wave amplitude has increased in Anterior leads Confirmed by Roland Ace ([id number]) on 04/18/2019 5:44:35 AM Referred By: REFERRED SELF Confirmed By:Roland Ace
[2019-04-18 08:14] LABS: Basophils # (auto) 0.03 K/uL (0-0.2); Basophils % (auto) 0.5 %; Eosinophils # (auto) 0.11 K/uL (0-0.5); Hematocrit (blood only) 34.7 % (42-52); Hemoglobin 11.5 g/dL (14.0-18.0); Immature Granulocytes # (auto) 0.02 K/uL (0.00-0.02); Immature Granulocytes % (auto) 0.4 %; Lymphocytes # (auto) 1.74 K/uL (1.2-3.4); Lymphocytes % (auto) 31.6 %; Mean Corpuscular Hemoglobin 28.3 pg (25-34); Mean Corpuscular Hgb Conc 33.1 g/dL (32-36); Mean Corpuscular Volume 85.5 fL (80-100); Mean Platelet Volume 9.2 fL (7.4-10.4); Monocytes # (auto) 0.59 K/uL (0.11-0.59); Monocytes % (auto) 10.7 %; Neutrophils # (auto) 3.02 K/uL (1.4-6.5); Neutrophils % (auto) 54.8 %; Platelet Count 294 K/uL (130-400); RDW Coefficient of Variation 15.7 % (11.5-14.5); RDW Standard Deviation 49.8 fL (36.4-46.3); Red Blood Count 4.06 M/uL (4.7-6.1); White Blood Count 5.51 K/uL (4.8-10.8)
[2019-04-18 08:43] LABS: BUN Creatinine Ratio 17.8 (10-20); Calcium 9.7 mg/dl (8.5-10.1); Creatinine Clr Calc Pharmacy 76.7 ml/min; Est GFR (African American) 91.5; Potassium 3.9 mmol/L (3.5-5.1)
[2019-04-18] MEDS: MYCOPHENOLATE MOFETIL 250 MG CAP PO SCH (09:35)
[2019-04-18] MEDS: PREGABALIN 75 MG CAP PO SCH (09:36)
[2019-04-18] MEDS: DULOXETINE HCL 30 MG CAP PO SCH (09:36)
[2019-04-18] MEDS: ASPIRIN 81 MG ECTAB PO SCH (09:36)
[2019-04-18] MEDS: NYSTATIN SUSP 500,000 U/5 ML UDC PO SCH ×2 (09:37→12:39)
[2019-04-18] MEDS: PANTOprazole 40 MG in SYRINGE 0 ML IV SCH (09:37)
[2019-04-18] MEDS: HEPARIN SOD 5,000 UNIT/0.5 ML VIAL SQ SCH (09:56)
[2019-04-18] MEDS ORDERED: PANTOprazole 40 MG TAB PO SCH (21:00)
--- NOTE | 2019-04-19 16:03 | Discharge Summary ---
Date of Service April 18, 2019 Admission HPI Per Admitting Provider 59yo male with extensive PMH including long-standing scleroderma and myositis, followed by rheumatology at [facility]; ischemic colon 01/2019 with resulting septic shock, acute resp failure, acute renal failure, and cardiac arrest x 2; subtotal colectomy with ileostomy formation at [facility] late 01/2019; and chronic low back pain who presents with acute onset of nausea, emesis, and copious liquid stool output from his ileostomy beginning last night. Patient reports that his girlfriend with whom he lives had similar symptoms last night and his girlfriend's daughter also had GI symp toms. He has not had fever or chills. At home today he had severe dizziness/lightheadedness to the point in which he could not get up from a chair. He was not able to eat/drink anything earlier today. Vomiting stopped early this am about 5 am. The patient states that following his stay at [facility] for his subtotal colectomy he was released to [facility] in [place] in early March. He remained at the [facility] for about 1 month, then transferred to [facility] for 1 additional week of rehab. He was discharged from [facility] on April 05. Since [facility] he has had multiple appointments with GI (Dr Li's office), his PCP, and also Tiffany (saw general surgery who had done his total colectomy). He is supposed to go to [facility] rheumatology this week. In addition to the above the patient had a recent cold/URI. He was seen by his PCP on 04/12/19 and placed on augmentin. Despite the augmentin he is still coughing. Denies fever. Minimal sputum production. Appetite has been poor since seeing PCP on 04/12/2019. Patient drank 2 glasses of pedialyte late morning and had subsequent emesis. Also reports cramps in legs today. He is not voiding as much today and in fact has not voided since coming to the ER. Lastly, the patient reports that he has had to empty his ileostomy bag numerous times today. Discharge Exam Constitutional WD/WN, vitals as above Eyes PERRL, conjunctivae normal, anicteric sclerae ENMT external ear and nose normal, oropharynx normal Neck trachea midline, no thyromegaly Respiratory normal respiratory effort, lungs clear to auscultation Cardiovascular RRR, no murmur, no edema Gastrointestinal (Abdomen) normal bowel sounds, soft, nontender, no hepatosplenomegaly (Liquid in ostomy bag) Musculoskeletal no cyanosis or clubbing, extremities motor strength 5/5 Skin no rashes, warm and dry Neurologic patellar DTR's 2+ bilat, sensation intact and PERRL, EOMI, accommodation nl, no face palsy, no dysarthria Psychiatric A+Ox3, euthymic affect Lymphatic no cervical or axillary lymphadenopathy Discharge Data Allergies Allergy/AdvReac Type Severity Reaction Status Date / Time azathioprine Allergy Intermediate "allergic" Verified 04/16/19 17:22 atropine Allergy Mild allergic-SKIN Verified 04/16/19 17:22 BREAKDOWN diphenoxylate Allergy Mild allergic Verified 04/16/19 17:22 amlodipine [From Lotrel] Allergy Unknown Rash Verified 04/16/19 17:22 benazepril [From Lotrel] Allergy Unknown Rash Verified 04/16/19 17:22 Consultations 04/16/19 18:03 ED Decision to Admit Stat 04/16/19 20:40 Consult Nephrology Routine Hospital Course (1) Acute gastroenteritis: Likely viral as significant other and his significant other's daughter all have similar symptoms that started about the same time. C diff negative, stool culture pending increase Imodium to 2mg q6, slightly less output today but still more than normal eating better though which is improvement no abdominal pain, no nausea (2) Acute kidney failure: Severely volume contracted from vomiting and copious ileostomy output. Thus, likely ATN/pre-renal in nature. Cr improved to 1.4 continue aggressive IV fluids as ostomy output more than normal eating and drinking but not drinking enough to keep up with ostomy losses HOLD lisinopril. appreciate input from Dr. Markham check BMP in the morning (3) Hypercalcemia: Likely 2nd to acute renal failure. returned to normal with aggressive IV fluids Ca is 10.1 today (4) Scleroderma: Longstanding diagnosis dating back to 2009. Follows with Dr Amrita Ortiz - rheumatology at [facility]. Scleroderma has affected his bowel considerably. Takes flagyl 500mg TID chronically at direction of rheumatology for his scleroderma of the bowel. Cont cellcept - 500mg am, 1000mg pm. Has f/u with rheumatology on 04/19 at [facility]. discussed that we will see if he can make it tomorrow morning See 10/12/2018 scanned document from rheumatology visit at [facility]. (5) H/O ileostomy: Created 01/2019 at [facility] due to ischemia of colon s/p subtotal colectomy. Copious output in setting of presumed viral process. C diff negative, stool cultures pending (6) Acute dehydration: Checked cortisol - level is robust. two 1 liter boluses given on admission continue NS at 100cc/hr Adjust fluids to match ileostomy output losses. Serial labs. (7) Cabrales's esophagus: Known. Follows with Dr Li locally. give him diet today (8) BPH with obstruction/lower urinary tract symptoms: Hold alpha hanna due to low-normal BP in setting of severe dehydration. Resume once BP is improved. Cont finasteride. (9) H/O aortic valve replacement: Bovine. (10) Hypothyroidism: TSH 04/2019 wnl. Cont synthroid without any changes. (11) Myositis: Dx ~2009. Follows with rheumatology at [facility]. No myalgias, proximal muscle weakness, etc. Continue cellcept. (12) Paroxysmal atrial fibrillation: Noted. Not on chronic anticoagulation - records indicate due to "prior GI bleeding". continues to be in NSR (13) Chronic back pain: 3 prior lumbar back surgeries in the past at [facility] by Dr Goldman. Has radicular symptoms from l-spine disease. In setting of acute renal failure will adjust lyrica by 50% to 75mg BID. (14) Hyponatremia: 2nd to volume contraction. resolved today, up to 136 (15) Elevated total protein: likely acute phase reactant down to normal today (16) Cough: x 1 week. Recent concern for developing pneumonia and was taking augmentin as outpatient for 3-4 days. Chest x-ray on admission w/o infiltrates. lungs clear Hold augmentin. (17) Cardiac arrest: x 2. This was in the setting of septic shock, respiratory failure, acidosis from ischemia of colon, etc in 01/2019. Had arrest here at [facility], then again at [facility], with successful catholic of spo ntaneous circulation. d/c summary from 01/2019 suggested he had a mildly depressed EF with a new wall motion abnormality. Takes chronic aspirin. Follows with Dr Alva [facility] cardiology. (18) Candidiasis of mouth and esophagus: nystatin 5cc qid (19) Raynaud disease: (20) DVT prophylaxis: heparin 5000 units BID Discharge Plan Discharge Items Patient Disposition: Home - Self-Care Reason For Visit: ACUTE RENAL FAILURE, HYPERCALCEMIA Discharge Diagnosis: Acute renal failure Dehydration Diarrhea due to acute viral gastroenteritis Condition on Discharge: Good Goals: stay well hydrated use Imodium as needed for liquid in ostomy follow up with [facility] tomorrow Activity: Resume your previous activity Driving/Machine Use: Resume 1 day after discharge Weightbearing: Full weightbearing Non-emergency contact: Primary Care Provider and Specialist Call non-emergency contact if: you have any medication questions, your symptoms worsen, your pain is worsening and you have a fever Follow-up/Referrals: Juanjose Orozco, [Primary Care Provider] - 04/20/19 1:30 pm (PX AWARE OF FOLLOW-UP APPT WITH DR. OROZCO'S OFFICE) Diet: Regular Addtl Attending Provider Instructions: Medications: - NYSTATIN: continue to use four times a day for 5 more days for thrush - SODIUM BICARBONATE: purchase over the counter, 650mg twice a day for 5 days - IMODIUM: purchase over the counter, can take every 6 hours as needed for loose stools - AUGMENTIN: stop this medication Acute kidney injury, metabolic acidosis due to GI losses Acute viral gastroenteritis improved quickly with aggressive IV fluids, Cr down to 1.0 today bicarbonate slightly low due to diarrhea, will place on sodium bicarb for a few days use Imodium as needed for loose output in ostomy anticipate that stools will continue to to be thick/normal as viral infection resolves C diff and stool cultures were negative safe to follow up with [facility] tomorrow get rest and stay well hydrated, well nourished over next several days Pending Studies at Discharge: No Stand-Alone Forms: My [employer], Smoking Cessation Medications and DC Order Prescriptions: New nystatin 100,000 unit/mL Suspension 5 ml PO QID 5 Days Qty: 100 RF: 0 loperamide 2 mg Capsule 2 mg PO Q6 PRN (Reason: Di) 7 Days Qty: 30 RF: 0 sodium bicarbonate 650 mg tablet 650 mg PO BID 5 Days Qty: 10 RF: 0 Continued lisinopril 5 mg tablet 5 mg PO QAM Qty: 90 RF: 3 hydrocodone-acetaminophen 5-325 mg tablet 1 tab PO DAILY PRN (Reason: pain) Qty: 30 RF: 0 cholecalciferol (vitamin D3) 2,000 unit capsule 2,000 unit PO QAM Qty: 90 RF: 0 Dexilant 60 mg capsule,biphase delayed releas 60 mg PO BID RF: 0 aspirin 81 mg tablet,delayed release (DR/EC) 81 mg PO DAILY RF: 0 duloxetine 30 mg capsule,delayed release(DR/EC) 30 mg PO DAILY RF: 0 magnesium oxide 400 mg magnesium tablet 800 mg PO TID RF: 0 meclizine 12.5 mg tablet 25 mg PO TID PRN (Reason: dizziness) RF: 0 metronidazole 500 mg tablet 500 mg PO Q8H RF: 0 pregabalin 75 mg capsule 150 mg PO BID RF: 0 levothyroxine 100 mcg tablet 100 mcg PO QAM RF: 0 cyanocobalamin (vitamin B-12) 1,000 mcg/mL Kit 1,000 mcg IM MONTHLY RF: 0 mycophenolate mofetil [CellCept] 250 mg Capsule 1,000 mg PO HS RF: 0 finasteride 5 mg Tablet 5 mg PO HS RF: 0 silodosin [Rapaflo] 8 mg Capsule 8 mg PO HS RF: 0 mycophenolate mofetil [CellCept] 250 mg capsule 500 mg PO QAM RF: 0 Discontinued amoxicillin-pot clavulanate [Augmentin] 875-125 mg tablet 1 tab PO BID Qty: 20 RF: 0 Discharge Orders: Discharge Order (Routine); Ordered 04/18/19 Ordered By: Toño Harper Admission Data Admit Date/Time: 04/16/19 19:38 Attending Provider: Toño Harper Admit Provider: Jc Gutierrez Primary Care Provider: Juanjose Orozco Other Providers: Jc Gutierrez ; Faustina Markham ; Steve,Home [facility] Other Interventions: Discharge Summary Assessment (RN) Last Done: 04/18/19 12:23 DC Date/Time DO NOT enter until pt leaves facility: 04/18/19 13:59 Coding Diagnoses Acute gastroenteritis K52.9 Acute kidney failure N17.9 Acute renal failure type: unspecified Hypercalcemia E83.52 Scleroderma M34.9 H/O ileostomy Z98.890 Acute dehydration E86.0 Cabrales's esophagus K22.70 Cabrales's esophagus type: without dysplasia BPH with obstruction/lower urinary tract symptoms N40.1; N13.8 H/O aortic valve replacement Z95.2 Hypothyroidism E03.9 Hypothyroidism type: acquired Myositis M60.9 Myositis type: unspecified type Myositis location: unspecified site Paroxysmal atrial fibrillation I48.0 Chronic back pain M54.5; G89.29 Back pain location: low back pain Back pain laterality: unspecified Sciatica presence: unspecified whether sciatica present Hyponatremia E87.1 Elevated total protein R77.8 Cough R05 Cardiac arrest I46.9 Candidiasis of mouth and esophagus B37.81; B37.0 Raynaud disease I73.00 Raynaud?s-associated gangrene presence: without gangrene DVT prophylaxis Z29.9
== END 2019-04-18 13:59 | disposition home or self-care (01) | DRG 391 ==
LOC: ED 16:19 → 2E 19:38 → SUATTDRO 19:38 → 2E 20:23

== ENCOUNTER 2020-05-30 07:45 | Observation (INO) ==
[2020-05-30] MEDS ORDERED: METOCLOPRAMIDE HCL INJ 5 MG/ML 2 ML VIAL IV STA (08:18)
[2020-05-30] MEDS ORDERED: SODIUM CHLORIDE 0.9% 1000ML 1,000 ML IV STA (08:18)
[2020-05-30 09:06] LABS: Basophils # (auto) 0.01 K/uL (0-0.2); Basophils % (auto) 0.1 %; Eosinophils # (auto) 0.01 K/uL (0-0.5); Eosinophils % (auto) 0.1 %; Hematocrit (blood only) 47.5 % (42-52); Hemoglobin 16.8 g/dL (14.0-18.0); Immature Granulocytes # (auto) 0.02 K/uL (0.00-0.02); Immature Granulocytes % (auto) 0.2 %; Lymphocytes # (auto) 1.23 K/uL (1.2-3.4); Lymphocytes % (auto) 11.3 %; Mean Corpuscular Hemoglobin 29.8 pg (25-34); Mean Corpuscular Hgb Conc 35.4 g/dL (32-36); Mean Corpuscular Volume 84.2 fL (80-100); Mean Platelet Volume 10.3 fL (7.4-10.4); Monocytes # (auto) 1.04 K/uL (0.11-0.59); Monocytes % (auto) 9.5 %; Neutrophils # (auto) 8.61 K/uL (1.4-6.5); Neutrophils % (auto) 78.8 %; Platelet Count 228 K/uL (130-400); RDW Coefficient of Variation 13.5 % (11.5-14.5); RDW Standard Deviation 41.4 fL (36.4-46.3); Red Blood Count 5.64 M/uL (4.7-6.1); White Blood Count 10.92 K/uL (4.8-10.8)
[2020-05-30 09:18] LABS: Prothrombin Time 10.3 Seconds (9.0-12.0)
[2020-05-30 09:24] LABS: Alanine Aminotransferase 108 U/L (12-78); Albumin Level 4.4 gm/dl (3.4-5.0); Aspartate Aminotransferase 78 U/L (15-37); BUN Creatinine Ratio 13.2 (10-20); Blood Urea Nitrogen 25 mg/dl (7-18); Calcium 9.8 mg/dl (8.5-10.1); Carbon Dioxide 19 mmol/L (21-32); Chloride 106 mmol/L (98-107); Creatinine Clr Calc Pharmacy 44.5 ml/min; Est GFR (African American) 42.6; Est GFR (Non-African American) 36.7; Glucose 110 mg/dl (70-99); Lipase 125 U/L (73-393); Magnesium 2.1 mg/dl (1.8-2.4); Potassium 4.5 mmol/L (3.5-5.1); Sodium 132 mmol/L (136-145)
[2020-05-30 09:28] LABS: Albumin Globulin Ratio 1.1 (0.9-2); Alkaline Phosphatase 153 U/L (45-117); Bilirubin,Total 1.3 mg/dl (0.2-1); Globulin 3.9 gm/dl (2.5-4.0); Total Protein 8.3 gm/dl (6.4-8.2); Troponin I < 0.015 ng/ml (0-0.045)
--- NOTE | 2020-05-30 09:51 | Emergency Department Note ---
Impression & Plan SBO (small bowel obstruction), Nausea & vomiting ED Provider Note Provider: Salas Falk MD DATE OF SERVICE: 05/30/2020 CHIEF COMPLAINT: Nausea vomiting and ostomy issues HISTORY OF PRESENT ILLNESS: Patient is a 60-year-old gentleman extensive past medical history including cardiomyopathy, aortic valve replacement, small bowel obstruction with an ileostomy from ischemic bowel presenting here today reporting he developed significant nausea and vomiting overnight with initially some blockage and decreased output from his ileostomy. 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 Denies any blood. States some mild abdominal fullness and and crampy abdominal discomfort without other radiation. Denies any significant chest pain or shortness of breath. Patient has concerns over possible dehydration thus presents here today for further evaluation. No syncope or falls reported. REVIEW OF SYSTEMS: A total of 10 review of systems was obtained and negative except as stated above in the HPI. PAST MEDICAL HISTORY: As noted above MEDICATIONS: Reviewed home medication list SOCIAL HISTORY: Non-smoker, lives at home PHYSICAL EXAM: GENERAL: alert and oriented in no acute distress on stretcher Head: normocephalic and atraumatic EYES: No injection, discharge or icterus. NECK: Trachea midline. LUNGS: Airway patent. No retractions. Breath sounds clear HEART: Regular rate and rhythm. No chest wall tenderness with healed prior surgical scar. ABDOMEN: Soft and non-tender, without guarding or rebound with a right-sided abdominal ostomy pink in color with normal stool in the ostomy appliance bag. Healed prior midline surgical scar. SKIN: Acyanotic, warm, dry, without rashes EXTREMITIES: Without swelling, tenderness or deformity NEUROLOGICAL: No focal deficits. No aphasia. No facial droop or slurred speech. EK bpm atrial fibrillation with right bundle branch block left anterior fascicular block. LVH findings with lead I and aVL T wave inversions and inferior ST changes not significantly changed compared to July 05, 2019 with the exception of A. fib today. CONTINUOUS CARDIAC MONITORING: was ordered and showed a heart rate of 50s-80s bpm in atrial fibrillation Patient's laboratory studies and imaging reviewed. Differential includes Appendicitis, testicular torsion, infections, diverticulitis, UTI, obstruction, mesenteric ischemia, aortic pathology, inflammatory bowel disease, renal colic, PUD, pancreatitis, biliary pathology, hernia, volvulus, constipation, as well as other pathologies. IMPRESSION/MEDICAL DECISION MAKING: Patient presents with concerns about dehydration without high ileostomy output nausea and vomiting. Multiple abdominal surgeries in the past. Some crampy abdominal discomfort. Labs, EKG, and CT abdomen pelvis were ordered. Lower suspicion at this time this is acutely cardiac and EKG and troponin were without acute ischemic findings. Patient does have a mildly elevated creatinine today compared to baseline as well as a slight leukocytosis of 10.9. Doubt this is highly infectious however that is more reactive from what appears to be a bowel obstruction on the CT scan. Lactate not elevated on lab studies. Liver function and bilirubin similar to just slightly elevated compared to previous but I doubt acute hepatitis. No evidence consistent with pancreatitis based on imaging and lipase. Patient was treated with Reglan and IV fluids here with improvement of symptomatologies. On reevaluation the patient had resolution of his nausea symptoms and declined NG tube; again he was made aware of the results and CT findings. Given that he has had extensive comorbidities and prior GI surgeries recommended given the SBO although not horribly symptomatic this time, that he continue to be monitored here at the hospital and he was in agreement. Rapid Covid test was sent negative. EKG seem somewhat concerning for atrial fibrillation of this patient does have paroxysmal past history; is a rate controlled. Hospitalist was contacted. DIAGNOSIS: Small bowel obstruction, nausea and vomiting DISPOSITION: Hospitalist will evaluate Patient was agreeable with this plan. Past Med/Surg History Medical History Acute kidney injury Anemia Cardiac arrest [facility] hospitalization 01/2019 Elevated prostate specific antigen (PSA) Negative biopsies 2006 and 2012. Prostate MRI (06/16) negative. PSA monitored yearly by urology. Fracture of multiple ribs of both sides Gastric ulcer GI bleeding Hiatal hernia Small, present on EGD (09/13). History of colon polyps Tubular adenoma (2013); Hyperplastic polyp (2018). 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 Followed by urology Premature ventricular contractions Radiculopathy Right bundle branch block with left anterior fascicular block Scleroderma DX - 2009. Second degree type II atrioventricular block Tubular adenoma of colon 1 tubular adenoma on colonoscopy (10/12). Colonoscopy 2019 - Hyperplastic polyp in ascending colon. ? 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 Previously evaluated at [facility]. Followed by cardiology. H/O colectomy 01/2019 - Complicated SBO by cardiac arrest, bowel ischemia requiring colectomy with ileostomy creation. H/O ileostomy created 01/2019 at [place] following subtotal colectomy History of cardioversion ~2008 History of colonoscopy Tubular Adenoma (2013). Hyperplastic Polyp (2018). Next due ? 2023. History of esophagogastroduodenoscopy (EGD) 11/2018 - LA grade D ulcerative esophagitis. Recommend F/U 2021 for surveillance. 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 other Current Living Situation: Spouse Current Living Situation Comment: live in [place] current occupational status: disabled current occupation: previously worked for [employer] Other Information That Helps Us Care for You: No other: 2 children from first marriage Feels Safe at Home: Yes Assistive Devices: Glasses Allergies Allergies Allergy/AdvReac Type Severity Reaction Status Date / Time azathioprine Allergy Intermediate "allergic" Verified 05/30/20 08:52 atropine Allergy Mild allergic-SKIN Verified 05/30/20 08:52 BREAKDOWN diphenoxylate Allergy Mild allergic Verified 05/30/20 08:52 amlodipine [From Lotrel] Allergy Unknown Rash Verified 05/30/20 08:52 benazepril [From Lotrel] Allergy Unknown Rash Verified 05/30/20 08:52 Home Meds Home Medications Medication Instructions Recorded Confirmed aspirin 81 mg tablet,delayed 81 mg PO DAILY 04/06/19 05/30/20 release Dexilant 60 mg PO BID 05/30/20 05/30/20 famotidine 40 mg PO BID 05/30/20 05/30/20 mycophenolate mofetil [CellCept] 500 - 1,000 mg PO AMPM 05/30/20 05/30/20 Previous Rx's Medication Instructions Recorded cyanocobalamin (vitamin B-12) 1,000 mcg SQ MONTHLY #3 ml 05/10/19 1,000 mcg/mL injection solution levothyroxine 100 mcg tablet 100 mcg PO QAM #90 tab 05/22/19 cholecalciferol (vitamin D3) 50 2,000 unit PO QAM #90 cap 06/28/19 mcg (2,000 unit) capsule finasteride 5 mg tablet 5 mg PO DAILY #90 tab 09/25/19 silodosin 8 mg capsule 8 mg PO HS #90 cap 09/25/19 syringe with needle 3 mL 23 x 1" #3 ea 11/13/19 lisinopril 5 mg tablet 5 mg PO QAM #90 tab 02/27/20 duloxetine 30 mg capsule,delayed 30 mg PO DAILY #14 cap 03/05/20 release cephalexin 500 mg capsule 500 mg PO BID 7 Days #14 cap 04/26/20 hydrocodone 5 mg-acetaminophen 325 1 tab PO DAILY PRN #30 tab 04/26/20 mg tablet pregabalin 75 mg capsule 150 mg PO BID #360 cap 05/15/20 Results & Data (ED) Vital Signs Vital Signs - 24 hr 05/30/20 07:55 05/30/20 08:04 05/30/20 08:18 Temperature 36.8 C Temperature Source Temporal Artery Scan Pulse Rate 101 H Pulse Rate [Left] Pulse Rhythm Regular Pulse Rhythm [Left] Pulse Strength Normal Pulse Strength [Left] Respiratory Rate 18 Respiratory Effort / Characteristics Non-Labored Respiratory Depth Normal Respiratory Pattern Regular Blood Pressure 120/88 Blood Pressure [Left Arm] Blood Pressure Mean 98 Blood Pressure Mean [Left Arm] Blood Pressure Position Sitting Blood Pressure Position [Left Arm] Pulse Oximetry 96 98 98 Oxygen Delivery Method Room Air Room Air Room Air Sepsis Recent Fever Within 48 Hours No Sepsis New/Unexplained Change in Mental Status No Sepsis Action Taken by Nursing No Action Required 05/30/20 10:15 Temperature Temperature Source Pulse Rate Pulse Rate [Left] 76 Pulse Rhythm Pulse Rhythm [Left] Irregular Pulse Strength Pulse Strength [Left] Normal Respiratory Rate 18 Respiratory Effort / Characteristics Non-Labored Spontaneous Respiratory Depth Normal Respiratory Pattern Regular Blood Pressure Blood Pressure [Left Arm] 116/73 Blood Pressure Mean Blood Pressure Mean [Left Arm] 87 Blood Pressure Position Blood Pressure Position [Left Arm] Lying Pulse Oximetry 98 Oxygen Delivery Method Room Air Sepsis Recent Fever Within 48 Hours Sepsis New/Unexplained Change in Mental Status Sepsis Action Taken by Nursing Laboratory Data Result diagrams: 05/30/20 08:45 05/30/20 08:45 Lab Results 05/30/20 05/30/20 05/30/20 Range/Units 08:45 08:45 08:45 WBC 10.92 H (4.8-10.8) K/uL RBC 5.64 (4.7-6.1) M/uL Hgb 16.8 (14.0-18.0) g/dL Hct 47.5 (42-52) % MCV 84.2 (80-100) fL MCH 29.8 (25-34) pg MCHC 35.4 (32-36) g/dL RDW Std Deviation 41.4 (36.4-46.3) fL RDW Coeff of Jalen 13.5 (11.5-14.5) % Plt Count 228 (130-400) K/uL MPV 10.3 (7.4-10.4) fL Immature Gran % (Auto) 0.2 % Neut % (Auto) 78.8 % Lymph % (Auto) 11.3 % [place] % (Auto) 9.5 % Eos % (Auto) 0.1 % Baso % (Auto) 0.1 % Neut # (Auto) 8.61 H (1.4-6.5) K/uL Lymph # (Auto) 1.23 (1.2-3.4) K/uL [place] # (Auto) 1.04 H (0.11-0.59) K/uL Eos # (Auto) 0.01 (0-0.5) K/uL Baso # (Auto) 0.01 (0-0.2) K/uL Immature Gran # (Auto) 0.02 (0.00-0.02) K/uL PT 10.3 (9.0-12.0) Seconds INR 1.0 (0.9-1.1) Sodium 132 L (136-145) mmol/L Potassium 4.5 (3.5-5.1) mmol/L Chloride 106 (98-107) mmol/L Carbon Dioxide 19 L (21-32) mmol/L Anion Gap 8.0 (3-11) BUN 25 H (7-18) mg/dl Creatinine 1.91 H (0.6-1.4) mg/dl Est Cr Clr Drug Dosing 44.5 ml/min Est GFR ( Amer) 42.6 Est GFR (Non-Af Amer) 36.7 BUN/Creatinine Ratio 13.2 (10-20) Glucose 110 H (70-99) mg/dl Lactate (0.4-2.0) mmol/L Calcium 9.8 (8.5-10.1) mg/dl Magnesium 2.1 (1.8-2.4) mg/dl Total Bilirubin 1.3 H (0.2-1) mg/dl AST 78 H (15-37) U/L ALT 108 H (12-78) U/L Alkaline Phosphatase 153 H (45-117) U/L Troponin I < 0.015 (0-0.045) ng/ml Total Protein 8.3 H (6.4-8.2) gm/dl Albumin 4.4 (3.4-5.0) gm/dl Globulin 3.9 (2.5-4.0) gm/dl Albumin/Globulin Ratio 1.1 (0.9-2) Lipase 125 (73-393) U/L 05/30/20 Range/Units 09:35 WBC (4.8-10.8) K/uL RBC (4.7-6.1) M/uL Hgb (14.0-18.0) g/dL Hct (42-52) % MCV (80-100) fL MCH (25-34) pg MCHC (32-36) g/dL RDW Std Deviation (36.4-46.3) fL RDW Coeff of Jalen (11.5-14.5) % Plt Count (130-400) K/uL MPV (7.4-10.4) fL Immature Gran % (Auto) % Neut % (Auto) % Lymph % (Auto) % [place] % (Auto) % Eos % (Auto) % Baso % (Auto) % Neut # (Auto) (1.4-6.5) K/uL Lymph # (Auto) (1.2-3.4) K/uL [place] # (Auto) (0.11-0.59) K/uL Eos # (Auto) (0-0.5) K/uL Baso # (Auto) (0-0.2) K/uL Immature Gran # (Auto) (0.00-0.02) K/uL PT (9.0-12.0) Seconds INR (0.9-1.1) Sodium (136-145) mmol/L Potassium (3.5-5.1) mmol/L Chloride (98-107) mmol/L Carbon Dioxide (21-32) mmol/L Anion Gap (3-11) BUN (7-18) mg/dl Creatinine (0.6-1.4) mg/dl Est Cr Clr Drug Dosing ml/min Est GFR ( Amer) Est GFR (Non-Af Amer) BUN/Creatinine Ratio (10-20) Glucose (70-99) mg/dl Lactate 1.4 (0.4-2.0) mmol/L Calcium (8.5-10.1) mg/dl Magnesium (1.8-2.4) mg/dl Total Bilirubin (0.2-1) mg/dl AST (15-37) U/L ALT (12-78) U/L Alkaline Phosphatase (45-117) U/L Troponin I (0-0.045) ng/ml Total Protein (6.4-8.2) gm/dl Albumin (3.4-5.0) gm/dl Globulin (2.5-4.0) gm/dl Albumin/Globulin Ratio (0.9-2) Lipase (73-393) U/L Administered Medications Discontinued Medications Sodium Chloride (Nss 1000ml) 1,000 mls @ 999 mls/hr IV .Q1H1M STA Stop: 05/30/20 09:18 Last Infusion: 04/01/21 09:43 Dose: 0 mls/hr Documented by: [id number] Admin: 05/30/20 08:40 Dose: 999 mls/hr Documented by: [id number] Sodium Chloride (Nss 1000ml) 1,000 mls @ 999 mls/hr IV .Q1H1M ONE Stop: 05/30/20 12:26 Last Infusion: 05/30/20 12:48 Dose: 0 mls/hr Documented by: [id number] Admin: 05/30/20 11:41 Dose: 999 mls/hr Documented by: [id number] Metoclopramide HCl (Metoclopramide Hcl Inj 5 Mg/Ml 2 Ml Vial) 10 mg IV NOW STA Stop: 05/30/20 08:19 Last Admin: 05/30/20 08:40 Dose: 10 mg Documented by: [id number] Imaging Data Radiologist's Impression: Abdomen/Pelvis CT 05/30/20 09:31 CT SCAN OF THE ABDOMEN AND PELVIS WITHOUT IV CONTRAST CLINICAL HISTORY: Nausea and vomiting. Increased ostomy output. COMPARISON STUDY: Abdominal CT dated 11/15/2019. TECHNIQUE: CT scan of the abdomen and pelvis is performed from the lung bases to the proximal femora. Images are reviewed in the axial, sagittal, and coronal planes. IV contrast was not administered for this examination. Note that the examination was performed in significantly suboptimal fashion without oral and IV contrast. A dose lowering technique was utilized adhering to the principles of ALARA. CT DOSE: 740.19 mGy.cm FINDINGS: Lung bases: The patient is status post midline sternotomy and aortic valve surgery. The heart is enlarged and without pericardial effusion. There are coronary artery calcifications. A small hiatal hernia is noted. The lung bases are clear noting bibasilar scarring/atelectasis. Liver: The unenhanced liver is normal in size, contour, and attenuation. There is no intrahepatic biliary ductal dilatation. Gallbladder: There are calcified gallstones with no CT evidence of acute cholecystitis. Spleen: Normal in size and attenuation. Pancreas: The unenhanced pancreas is moderately atrophic and grossly unremarkable. A nodule adjacent surgical clips is again seen anterior to the pancreatic head on image #198. This measures 2.5 x 2.4 cm. Adrenal glands: Unremarkable. Kidneys: The unenhanced kidneys demonstrate cortical atrophy and are without hydronephrosis. There are no renal calculi identified. A 9 cm left renal cyst is similar to previous. Abdominal vasculature: The abdominal aorta is normal in course and caliber noting moderate atherosclerotic calcification. Bowel: There is postoperative change from subtotal colectomy with Wise pouch formation and right lower quadrant ileostomy. There are distended and fluid- filled loops of small bowel which measure up to 4.7 cm in diameter. The distal small bowel is decompressed, and the appearance suggest bowel obstruction. A transition point is suggested deep to the umbilicus on image #269. This is best appreciated on the coronal reformats. There is no pneumatosis intestinalis or portal venous gas. There are diverticula of the sigmoid stump with no CT evidence of acute diverticulitis. Peritoneum: There is no intraperitoneal free air or abdominal ascites. There is a small fat-containing umbilical hernia. Lymphadenopathy: None. Pelvic viscera: The prostate gland is enlarged and heterogeneous noting median lobe hypertrophy. The bladder and seminal vesicles are normal as visualized. Skeletal structures: The skeletal structures are osteopenic. There is postoperative change from laminectomy and posterior fusion at L5-S1. No lytic or blastic lesions are seen. IMPRESSION: 1. Again seen is postoperative change from subtotal colectomy with right lower quadrant ileostomy. 2. Findings are consistent with a small bowel obstruction. A transition point is suspected in the ventral mid abdomen at the level of the umbilicus. 3. No intraperitoneal free air is identified. There is no pneumatosis intestinalis or portal venous gas. 4. An indeterminant nodule with adjacent surgical clips is again seen anterior to the pancreatic head. This has modestly decreased in size as compared to 11/15/2019. Correlation with the patient's oncological and operative history will be required. 5. Cholelithiasis without CT evidence of acute cholecystitis. 6. Cardiomegaly. 7. Additional findings as above. ACT 112: Negative or not required by law. Electronically signed by: Jonnathan Hi M.D. 05/30/2020 9:58 AM Discharge Plan Visit Data Chief Complaint: Illness Stated Complaint: NOT FEELING WELL/ILIMOSTY WAS CLOGGED ED Provider: Salas Falk Discharge Problem: SBO (small bowel obstruction), Nausea & vomiting Patient Disposition: Admitted As Inpatient Discharge Instructions Interventions: ED Discharge Assessment Last Done: 05/30/20 13:31 Discharge Problem: Nausea & vomiting Qualifiers: Vomiting type: unspecified Vomiting Intractability: non-intractable Qualified Code(s): R11.2 - Nausea with vomiting, unspecified
--- NOTE | 2020-05-30 09:59 | CT Scan Report ---
CT SCAN OF THE ABDOMEN AND PELVIS WITHOUT IV CONTRAST CLINICAL HISTORY: Nausea and vomiting. Increased ostomy output. COMPARISON STUDY: Abdominal CT dated 11/15/2019. TECHNIQUE: CT scan of the abdomen and pelvis is performed from the lung bases to the proximal femora. Images are reviewed in the axial, sagittal, and coronal planes. IV contrast was not administered for this examination. Note that the examination was performed in significantly suboptimal fashion withou t oral and IV contrast. A dose lowering technique was utilized adhering to the principles of ALARA. CT DOSE: 740.19 mGy.cm FINDINGS: Lung bases: The patient is status post midline sternotomy and aortic valve surgery. The heart is enla rged and without pericardial effusion. There are coronary artery calcifications. A small hiatal herni a is noted. The lung bases are clear noting bibasilar scarring/atelectasis. Liver: The unenhanced liver is normal in size, contour, and attenuation. There is no intrahepatic ankush iary ductal dilatation. Gallbladder: There are calcified gallstones with no CT evidence of acute cholecystitis. Spleen: Normal in size and attenuation. Pancreas: The unenhanced pancreas is moderately atrophic and grossly unremarkable. A nodule adjacent surgical clips is again seen anterior to the pancreatic head on image #198. This measures 2.5 x 2.4 c m. Adrenal glands: Unremarkable. Kidneys: The unenhanced kidneys demonstrate cortical atrophy and are without hydronephrosis. There ar e no renal calculi identified. A 9 cm left renal cyst is similar to previous. Abdominal vasculature: The abdominal aorta is normal in course and caliber noting moderate atheroscle rotic calcification. Bowel: There is postoperative change from subtotal colectomy with Wise pouch formation and right l ower quadrant ileostomy. There are distended and fluid-filled loops of small bowel which measure up t o 4.7 cm in diameter. The distal small bowel is decompressed, and the appearance suggest bowel obstru ction. A transition point is suggested deep to the umbilicus on image #269. This is best appreciated on the coronal reformats. There is no pneumatosis intestinalis or portal venous gas. There are divert icula of the sigmoid stump with no CT evidence of acute diverticulitis. Peritoneum: There is no intraperitoneal free air or abdominal ascites. There is a small fat-containin g umbilical hernia. Lymphadenopathy: None. Pelvic viscera: The prostate gland is enlarged and heterogeneous noting median lobe hypertrophy. The bladder and seminal vesicles are normal as visualized. Skeletal structures: The skeletal structures are osteopenic. There is postoperative change from jesus ectomy and posterior fusion at L5-S1. No lytic or blastic lesions are seen. IMPRESSION: 1. Again seen is postoperative change from subtotal colectomy with right lower quadrant ileostomy. 2. Findings are consistent with a small bowel obstruction. A transition point is suspected in the arnulfo tral mid abdomen at the level of the umbilicus. 3. No intraperitoneal free air is identified. There is no pneumatosis intestinalis or portal venous g as. 4. An indeterminant nodule with adjacent surgical clips is again seen anterior to the pancreatic head . This has modestly decreased in size as compared to 11/15/2019. Correlation with the patient's oncolo gical and operative history will be required. 5. Cholelithiasis without CT evidence of acute cholecystitis. 6. Cardiomegaly. 7. Additional findings as above. ACT 112: Negative or not required by law. Electronically signed by: Jonnathan Hi M.D. 05/30/2020 9:58 AM
--- NOTE | 2020-05-30 11:15 | History & Physical Report ---
Date of Service May 30, 2020 Assessment & Plan (1) Small bowel obstruction: NPO except sips/chips and p.o. meds. IV fluids. No need for NG tube at this time given no significant nausea vomiting. Consult surgery (2) Gastroesophageal reflux disease: Continue famotidine 40 mg p.o. twice daily and Dexilant 60 mg p.o. twice daily (3) Paroxysmal atrial fibrillation: Not on anticoagulation due to prior GI bleed per last cardiology note. Usually rate controlled without AV miguel angel hanna. (4) Hypertension: Continue lisinopril 5 mg p.o. every morning (5) Hypothyroidism: TSH 1.19 in April 2020 Continue levothyroxine 100 mcg p.o. every morning (6) Diffuse cutaneous systemic sclerosis: Continue usual home dose of mycophenolate 500 mg p.o. every morning, 1000 mg p.o. every afternoon (7) Ileostomy present: Output starting to increase (8) H/O aortic valve replacement: Bioprosthetic Admission and Anticipated Discharge Date Admission Date: May 30, 2020 History of Present Illness Chief Complaint: Abdominal pain, nausea, vomiting Primary Care Provider: Robbin Patel MD Philip Mendosa is a 60 year old male with ileostomy from prior ischemic bowel who presents to the ER after his ileostomy " plugged up" last night after eating mushrooms/arndt soup. This caused significant generalized body aches, abdominal pain and significant nausea and vomiting last night. 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 However his cramping generalized abdominal pain (no radiation) has continued therefore decided to come to the ER. His main current concern is ongoing abdominal cramping, severe leg cramps which he suspects is due to dehydration. In the ER CT abdomen/pelvis was concerning for small bowel obstruction. He was treated for nausea with metoclopramide 10 mg IV. He was treated for dehydration with NSS 1 hour bolus (creatinine increased from 1.34 baseline to 1.91 in the ER). He was referred to medicine for admission ongoing management of small bowel obstruction. Allergies Allergy/AdvReac Type Severity Reaction Status Date / Time azathioprine Allergy Intermediate "allergic" Verified 05/30/20 08:52 atropine Allergy Mild allergic-SKIN Verified 05/30/20 08:52 BREAKDOWN diphenoxylate Allergy Mild allergic Verified 05/30/20 08:52 amlodipine [From Lotrel] Allergy Unknown Rash Verified 05/30/20 08:52 benazepril [From Lotrel] Allergy Unknown Rash Verified 05/30/20 08:52 Home Medications Medication Instructions Recorded Confirmed Type aspirin 81 mg tablet,delayed 81 mg PO DAILY 04/06/19 05/30/20 History release cyanocobalamin (vitamin B-12) 1,000 mcg SQ MONTHLY #3 ml 05/10/19 05/30/20 Rx 1,000 mcg/mL injection solution levothyroxine 100 mcg tablet 100 mcg PO QAM #90 tab 05/22/19 05/30/20 Rx cholecalciferol (vitamin D3) 50 2,000 unit PO QAM #90 cap 06/28/19 05/30/20 Rx mcg (2,000 unit) capsule finasteride 5 mg tablet 5 mg PO DAILY #90 tab 09/25/19 05/30/20 Rx silodosin 8 mg capsule 8 mg PO HS #90 cap 09/25/19 05/30/20 Rx syringe with needle 3 mL 23 x 1" #3 ea 11/13/19 04/26/20 Rx lisinopril 5 mg tablet 5 mg PO QAM #90 tab 02/27/20 05/30/20 Rx duloxetine 30 mg capsule,delayed 30 mg PO DAILY #14 cap 03/05/20 05/30/20 Rx release cephalexin 500 mg capsule 500 mg PO BID 7 Days #14 cap 04/26/20 05/30/20 Rx hydrocodone 5 mg-acetaminophen 325 1 tab PO DAILY PRN #30 tab 04/26/20 05/30/20 Rx mg tablet pregabalin 75 mg capsule 150 mg PO BID #360 cap 05/15/20 05/30/20 Rx Dexilant 60 mg PO BID 05/30/20 05/30/20 History famotidine 40 mg PO BID 05/30/20 05/30/20 History mycophenolate mofetil [CellCept] 500 - 1,000 mg PO AMPM 05/30/20 05/30/20 History Past Med/Surg History Medical History (Updated 05/30/20 @ 17:31 by Jc Reina MD) Acute kidney injury Anemia Cardiac arrest [facility] hospitalization 01/2019 Elevated prostate specific antigen (PSA) Negative biopsies 2006 and 2012. Prostate MRI (4/18) negative. PSA monitored yearly by urology. Fracture of multiple ribs of both sides Gastric ulcer GI bleeding Hiatal hernia Small, present on EGD (09/13). History of colon polyps Tubular adenoma (2013); Hyperplastic polyp (2018). 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 Followed by urology Premature ventricular contractions Radiculopathy Right bundle branch block with left anterior fascicular block Scleroderma DX - 2009. Second degree type II atrioventricular block Tubular adenoma of colon 1 tubular adenoma on colonoscopy (10/12). Colonoscopy 2018 - Hyperplastic polyp in ascending colon. ? 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 Previously evaluated at [facility]. Followed by cardiology. H/O colectomy 01/2019 - Complicated SBO by cardiac arrest, bowel ischemia requiring colectomy with ileostomy creation. H/O ileostomy created 01/2019 at [place] following subtotal colectomy History of cardioversion ~2008 History of colonoscopy Tubular Adenoma (2013). Hyperplastic Polyp (2018). Next due ? 2023. History of esophagogastroduodenoscopy (EGD) 11/2018 - LA grade D ulcerative esophagitis. Recommend F/U 2021 for surveillance. 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 other Current Living Situation: Spouse Current Living Situation Comment: live in [place] current occupational status: disabled current occupation: previously worked for [employer] Other Information That Helps Us Care for You: No other: 2 children from first marriage Feels Safe at Home: Yes Assistive Devices: None Review of Systems Review of Systems: All systems reviewed & are unremarkable except as noted in HPI & below Physical Exam Constitutional: WD/WN, vitals as above Respiratory: normal respiratory effort, lungs clear to auscultation Cardiovascular: Rate/Rhythm: regular rate and + irregularly irregular Heart Sounds: no murmur Extremities: normal capillary refill Gastrointestinal (Abdomen): Inspection/Auscultation: + abdomen distended and + hypoactive bowel sounds Percussion/Palpation: + abdomen tender (Generalized) and abdomen soft; no guarding and abdomen not rigid Musculoskeletal: no cyanosis or clubbing, extremities motor strength 5/5 Neurologic: moves all extremities and awake; not confused Psychiatric: A+Ox3, euthymic affect Results & Data Results & Data ([facility]) Vital Signs (Past 12 Hours) Vital Signs Temp Pulse Pulse Resp BP BP Pulse Ox 05/30/20 10:15 76 18 116/73 98 05/30/20 08:18 98 05/30/20 08:04 98 05/30/20 07:55 36.8 C 101 H 18 120/[address] SCAN OF THE ABDOMEN AND PELVIS WITHOUT IV CONTRAST IMPRESSION: 1. Again seen is postoperative change from subtotal colectomy with right lower quadrant ileostomy. 2. Findings are consistent with a small bowel obstruction. A transition point is suspected in the ventral mid abdomen at the level of the umbilicus. 3. No intraperitoneal free air is identified. There is no pneumatosis intestinalis or portal venous gas. 4. An indeterminant nodule with adjacent surgical clips is again seen anterior to the pancreatic head. This has modestly decreased in size as compared to 11/15/2019. Correlation with the patient's oncological and operative history will be required. 5. Cholelithiasis without CT evidence of acute cholecystitis. 6. Cardiomegaly. 7. Additional findings as above. Medications Administered ER medications given: NSS 1 hour bolus Metoclopramide 10 mg IV ECG Indication: abdominal pain Rate (beats per minute): 83 Rhythm: atrial fibrillation Findings: + other (Bifascicular block (old)), + LAFB and + RBBB Change: the following changes noted (Atrial fibrillation replaced sinus rhythm) PG Care Time/CCT Total # of Minutes Spent Total Time Spent with Patient: Total time spent is greater than 50% in coordination of care (as documented) at patient's floor/unit and/or counseling patient: Coding Level of Care Code 91629 Initial Inpt Care Lvl 2 Diagnoses Small bowel obstruction K56.609 Gastroesophageal reflux disease K21.0 Esophagitis presence: with esophagitis Paroxysmal atrial fibrillation I48.0 Hypertension I10 Hypothyroidism E03.9 Hypothyroidism type: acquired Diffuse cutaneous systemic sclerosis M34.89 Ileostomy present Z93.2 H/O aortic valve replacement Z95.2 (1) Gastroesophageal reflux disease Esophagitis presence: with esophagitis Qualified Code(s): K21.0 - Gastro- esophageal reflux disease with esophagitis (2) Hypothyroidism Hypothyroidism type: acquired Qualified Code(s): E03.9 - Hypothyroidism, unspecified
[2020-05-30] MEDS ORDERED: SODIUM CHLORIDE 0.9% 1000ML 1,000 ML IV ONE (11:26)
[2020-05-30 12:23] LABS: Influenza A virus by PCR Negative (Neg); Influenza B virus by PCR Negative (Neg); RSV by PCR Negative (Neg); SARS CoV2 RNA(COVID-19) InHosp NEGATIVE (Negative)
[2020-05-30] MEDS ORDERED: ONDANSETRON INJ 2 MG/ML 2 ML VIAL IV PRN (13:39)
--- NOTE | 2020-05-30 14:04 | Surgery Consultation ---
Date of Consultation May 30, 2020 Assessment & Plan (1) Small bowel obstruction: Symptoms improved, having output, can have clears. Will continue to follow. Supervising Physician Co-Signing Physician Notes Patient seen and examined, labs and image reviewed, agree with above. 60-year-old male with multiple medical problems including aortic valve replacement, scleroderma, and history of subtotal colectomy for ischemic colitis done at [facility] 1 year ago, presented to the emergency department with abdominal cramping and decreased ostomy output. He ate been a mushroom soup last night for dinner. He then had decreased ostomy output and abdominal cramping. This is happened to him 2-3 times in the past since his surgery and usually happens with fibrous foods. Since admission he has had copious amounts of succus from his ileostomy. On exam he is afebrile with stable vitals. Abdomen soft, mildly distended, midline laparotomy well-healed. Ostomy in the right lower quadrant pink patent and productive succus. WBC mildly elevated with elevated creatinine. CT with partial small bowel obstruction. 60-year-old male with what appears to be resolved partial small bowel obstruction. We will start him on clears and advance his diet tomorrow. He was again instructed to avoid fibrous and bulky foods. Surgery will follow. History of Present Illness Attending Physician: Jc Reina MD History of Present Illness 60 y/o male h/o subtotal colectomy/ileostomy for ischemic colon in 01/2019 had mushroom soup two days ago and began having bloating and pain a few hours later. He had decreased ostomy output yesterday and N/V after trying tomato soup. Overnight he began feeling better and has been having increasing ileostomy output today but came in to be evaluated. Allergies Allergy/AdvReac Type Severity Reaction Status Date / Time azathioprine Allergy Intermediate "allergic" Verified 05/30/20 08:52 atropine Allergy Mild allergic-SKIN Verified 05/30/20 08:52 BREAKDOWN diphenoxylate Allergy Mild allergic Verified 05/30/20 08:52 amlodipine [From Lotrel] Allergy Unknown Rash Verified 05/30/20 08:52 benazepril [From Lotrel] Allergy Unknown Rash Verified 05/30/20 08:52 Home Medications Medication Instructions Recorded Confirmed Type aspirin 81 mg tablet,delayed 81 mg PO DAILY 04/06/19 05/30/20 History release cyanocobalamin (vitamin B-12) 1,000 mcg SQ MONTHLY #3 ml 05/10/19 05/30/20 Rx 1,000 mcg/mL injection solution levothyroxine 100 mcg tablet 100 mcg PO QAM #90 tab 05/22/19 05/30/20 Rx cholecalciferol (vitamin D3) 50 2,000 unit PO QAM #90 cap 06/28/19 05/30/20 Rx mcg (2,000 unit) capsule finasteride 5 mg tablet 5 mg PO DAILY #90 tab 09/25/19 05/30/20 Rx silodosin 8 mg capsule 8 mg PO HS #90 cap 09/25/19 05/30/20 Rx syringe with needle 3 mL 23 x 1" #3 ea 11/13/19 04/26/20 Rx lisinopril 5 mg tablet 5 mg PO QAM #90 tab 02/27/20 05/30/20 Rx duloxetine 30 mg capsule,delayed 30 mg PO DAILY #14 cap 03/05/20 05/30/20 Rx release cephalexin 500 mg capsule 500 mg PO BID 7 Days #14 cap 04/26/20 05/30/20 Rx hydrocodone 5 mg-acetaminophen 325 1 tab PO DAILY PRN #30 tab 04/26/20 05/30/20 Rx mg tablet pregabalin 75 mg capsule 150 mg PO BID #360 cap 05/15/20 05/30/20 Rx Dexilant 60 mg PO BID 05/30/20 05/30/20 History famotidine 40 mg PO BID 05/30/20 05/30/20 History mycophenolate mofetil [CellCept] 500 - 1,000 mg PO AMPM 05/30/20 05/30/20 History Patient History Medical History Acute kidney injury Anemia Cardiac arrest [facility] hospitalization 01/2019 Elevated prostate specific antigen (PSA) Negative biopsies 2006 and 2012. Prostate MRI (06/16) negative. PSA monitored yearly by urology. Fracture of multiple ribs of both sides Gastric ulcer GI bleeding Hiatal hernia Small, present on EGD (09/13). History of colon polyps Tubular adenoma (2013); Hyperplastic polyp (2018). 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 Followed by urology Premature ventricular contractions Radiculopathy Right bundle branch block with left anterior fascicular block Scleroderma DX - 2009. Second degree type II atrioventricular block Tubular adenoma of colon 1 tubular adenoma on colonoscopy (10/12). Colonoscopy 2018 - Hyperplastic polyp in ascending colon. ? 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 Previously evaluated at [facility]. Followed by cardiology. H/O colectomy 01/2019 - Complicated SBO by cardiac arrest, bowel ischemia requiring colectomy with ileostomy creation. H/O ileostomy created 01/2019 at [facility] following subtotal colectomy History of cardioversion ~2008 History of colonoscopy Tubular Adenoma (2013). Hyperplastic Polyp (2018). Next due ? 2023. History of esophagogastroduodenoscopy (EGD) 11/2018 - LA grade D ulcerative esophagitis. Recommend F/U 2021 for surveillance. 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 other Current Living Situation: Spouse Current Living Situation Comment: live in [place] current occupational status: disabled current occupation: previously worked for [employer] Other Information That Helps Us Care for You: No other: 2 children from first marriage Feels Safe at Home: Yes Assistive Devices: Glasses Review of Systems Constitutional: no fever and no chills Gastrointestinal: + abdominal pain (improved) and + nausea (resolved) Physical Exam Constitutional: WD/WN, vitals as above ENMT: external ear and nose normal, oropharynx normal (does not have NG) Respiratory: normal respiratory effort Cardiovascular: Rate/Rhythm: regular rate Gastrointestinal (Abdomen): Inspection/Auscultation: + abdomen distended (minimal) and + abdominal surgical scar Percussion/Palpation: abdomen soft; abdomen nontender and no hernia ostomy bag full of liquid output Results & Data ([facility]) Vital Signs (Past 12 Hours) Vital Signs Temp Pulse Pulse Resp BP BP Pulse Ox 05/30/20 13:39 36.4 C L 56 L 18 121/71 97 05/30/20 12:58 74 16 119/78 100 05/30/20 10:15 76 18 116/73 98 05/30/20 08:18 98 05/30/20 08:04 98 05/30/20 07:55 36.8 C 101 H 18 120/88 96 Pulse Ox 05/30/20 13:39 97 05/30/20 12:58 05/30/20 10:15 05/30/20 08:18 05/30/20 08:04 05/30/20 07:55 PG Care Time/CCT Total # of Minutes Spent Total Time Spent with Patient: Total time spent is greater than 50% in coordination of care (as documented) at patient's floor/unit and/or counseling patient: Coding Level of Care Code 11761 Inpt Consult Level 3 Diagnoses Small bowel obstruction K56.609
[2020-05-30] MEDS: PANTOprazole 40 MG TAB PO SCH (15:50)
[2020-05-30] MEDS: POTASSIUM CHLORIDE 10 MEQ in SODIUM CHLORIDE 0.45 % 1,000 ML IV SCH ×2 (15:50→23:44)
[2020-05-30] MEDS ORDERED: MYCOPHENOLATE MOFETIL 250 MG CAP PO SCH (21:00)
[2020-05-30] MEDS ORDERED: DULoxetine HCL 30 MG CAP PO SCH (21:00)
[2020-05-30] MEDS ORDERED: SILODOSIN 8 MG PO SCH (21:00)
[2020-05-30] MEDS: FAMOTIDINE 40 MG TABLET PO SCH (21:32)
[2020-05-30] MEDS: PREGABALIN 150 MG CAP PO SCH (21:33)
[2020-05-31] MEDS ORDERED: LEVOTHYROXINE SODIUM 100 MCG TABLET PO SCH (06:30)
[2020-05-31 07:35] LABS: Basophils # (auto) 0.01 K/uL (0-0.2); Basophils % (auto) 0.2 %; Eosinophils # (auto) 0.16 K/uL (0-0.5); Eosinophils % (auto) 2.5 %; Hematocrit (blood only) 42.6 % (42-52); Hemoglobin 14.6 g/dL (14.0-18.0); Immature Granulocytes # (auto) 0.01 K/uL (0.00-0.02); Immature Granulocytes % (auto) 0.2 %; Lymphocytes # (auto) 2.31 K/uL (1.2-3.4); Lymphocytes % (auto) 36.6 %; Mean Corpuscular Hemoglobin 29.8 pg (25-34); Mean Corpuscular Hgb Conc 34.3 g/dL (32-36); Mean Corpuscular Volume 86.9 fL (80-100); Mean Platelet Volume 10.5 fL (7.4-10.4); Monocytes # (auto) 0.74 K/uL (0.11-0.59); Monocytes % (auto) 11.7 %; Neutrophils # (auto) 3.08 K/uL (1.4-6.5); Neutrophils % (auto) 48.8 %; Platelet Count 193 K/uL (130-400); RDW Coefficient of Variation 13.7 % (11.5-14.5); RDW Standard Deviation 43.2 fL (36.4-46.3); White Blood Count 6.31 K/uL (4.8-10.8)
[2020-05-31] MEDS: FAMOTIDINE 40 MG TABLET PO SCH (07:46)
[2020-05-31] MEDS: PANTOprazole 40 MG TAB PO SCH (07:46)
[2020-05-31] MEDS: PREGABALIN 150 MG CAP PO SCH (07:49)
[2020-05-31 07:59] LABS: BUN Creatinine Ratio 12.3 (10-20); Calcium 8.7 mg/dl (8.5-10.1); Est GFR (African American) 63.6; Est GFR (Non-African American) 54.9; Potassium 4.2 mmol/L (3.5-5.1)
--- NOTE | 2020-05-31 08:10 | Surgery Progress Note ---
Date of Service May 31, 2020 Assessment & Plan (1) SBO (small bowel obstruction): Patient here with abdominal pain/nausea/vomiting, CT report concerning for partial SBO.History of subtotal colectomy and ostomy for ischemic colitis 02/16 - Today patient is feeling well without any abdominal complaints - WBC 6 and Cr downtrending 1.3 (1.7) - Since admission patient has started having + ostomy output (>1L documented) - Tolerating clears thus far, will advance to low fiber this AM - If patient does well can consider discharge to home later today from our standpoint. Patient should avoid high fibrous diet - [facility] surgery covering over the weekend if any questions/concerns Admission and Anticipated Discharge Date Admission Date: May 30, 2020 Supervising Physician Co-Signing Physician Notes Patient seen and examined, agree with above. History of subtotal colectomy with end ileostomy admitted with partial small bowel obstruction after eating fibrous foods. Yesterday after admission he had significant increase in his ostomy output and relief of his pain. He tolerated clear liquids and is advanced to a low fiber diet. On exam he is afebrile stable vitals. His ostomy is pink and productive. His abdomen is soft, nondistended, nontender. Okay to discharge to home if tolerating low fiber diet. Advised to continue low fiber diet. Surgery will sign off, [facility] surgery covering over the weekend, call with questions or concerns Subjective Patient states he is feeling good this AM. Denies any nausea/vomiting or abdominal pain. He is having + ostomy output. Says he feels much better than when he first arrived and has no current abdominal complaints. Physical Exam Physical Exam: awake/alert Constitutional: no acute distress Respiratory: normal respiratory effort Gastrointestinal (Abdomen): Inspection/Auscultation: abdomen not distended Percussion/Palpation: abdomen soft; abdomen nontender + stool in ostomy bag Results & Data ([facility]) Vital Signs (Past 12 Hours) Vital Signs Temp Pulse Pulse Resp BP Pulse Ox 05/31/20 07:29 37.5 C 62 19 121/78 96 05/31/20 05:11 111/72 05/31/20 04:45 130/86 05/31/20 02:50 36.6 C 61 18 123/67 96 05/31/20 00:13 50 L 05/30/20 22:24 36.7 C 58 L 18 138/74 97 PG Care Time/CCT Total # of Minutes Spent Total Time Spent with Patient: Total time spent is greater than 50% in coordination of care (as documented) at patient's floor/unit and/or counseling patient: Coding Level of Care Code 42719 Subseq Hosp Care Lvl 1 Diagnoses SBO (small bowel obstruction) K56.609
[2020-05-31] MEDS: POTASSIUM CHLORIDE 10 MEQ in SODIUM CHLORIDE 0.45 % 1,000 ML IV SCH (08:28)
[2020-05-31] MEDS ORDERED: lisinopril 5 MG TAB PO SCH (09:00)
[2020-05-31] MEDS ORDERED: MYCOPHENOLATE MOFETIL 250 MG CAP PO SCH (09:00)
[2020-05-31] MEDS ORDERED: ASPIRIN 81 MG ECTAB PO SCH (09:00)
[2020-05-31] MEDS ORDERED: FINASTERIDE 5 MG TAB PO SCH (09:00)
[2020-05-31] MEDS ORDERED: CHOLECALCIFEROL 1,000 UNITS 25 MCG TAB PO SCH (09:00)
[2020-05-31] MEDS ORDERED: DULoxetine HCL 30 MG CAP PO SCH (09:00)
--- NOTE | 2020-05-31 13:55 | Discharge Summary ---
Date of Service May 31, 2020 Admission HPI Per Admitting Provider Philip Mendosa is a 60 year old male with ileostomy from prior ischemic bowel who presents to the ER after his ileostomy " plugged up" last night after eating mushrooms/arndt soup. This caused significant generalized body aches, abdominal pain and significant nausea and vomiting last night. 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 However his cramping generalized abdominal pain (no radiation) has continued therefore decided to come to the ER. His main current concern is ongoing abdominal cramping, severe leg cramps which he suspects is due to dehydration. In the ER CT abdomen/pelvis was concerning for small bowel obstruction. He was treated for nausea with metoclopramide 10 mg IV. He was treated for dehydration with NSS 1 hour bolus (creatinine increased from 1.34 baseline to 1.91 in the ER). He was referred to medicine for admission ongoing management of small bowel obstruction. Principal Diagnosis sbo Discharge Exam Constitutional WD/WN, vitals as above Eyes PERRL, conjunctivae normal, anicteric sclerae ENMT external ear and nose normal, oropharynx normal Respiratory normal respiratory effort, lungs clear to auscultation Cardiovascular Rate/Rhythm: + irregularly irregular Gastrointestinal (Abdomen) normal bowel sounds, soft, nontender, no hepatosplenomegaly ostomy bag in place with fecal matter, site pink and productive Skin no rashes, warm and dry Psychiatric A+Ox3, euthymic affect Discharge Data Allergies Allergy/AdvReac Type Severity Reaction Status Date / Time azathioprine Allergy Intermediate "allergic" Verified 05/30/20 08:52 atropine Allergy Mild allergic-SKIN Verified 05/30/20 08:52 BREAKDOWN diphenoxylate Allergy Mild allergic Verified 05/30/20 08:52 amlodipine [From Lotrel] Allergy Unknown Rash Verified 05/30/20 08:52 benazepril [From Lotrel] Allergy Unknown Rash Verified 05/30/20 08:52 Consultations 05/30/20 11:12 ED Decision to Admit Stat 05/30/20 11:29 Consult General Surgery Routine 05/31/20 10:57 Consult Cardiology Routine Ordered Studies 05/30/20 09:31 CT Abd and Pelvis [CT abd pelvis wo con] Stat Hospital Course (1) SBO (small bowel obstruction): 60 yo M with PMH HTN, GERD, pAfib, Hypothyroidism, scleroderma, [place] [facility] [place] presents with abdominal cramping found to have SBO on CT abd imaging. The following was medical management during stay here: Small bowel obstruction: -Initially NPO except sips/chips with IVF. No need for NG tube at this time given no significant nausea vomiting. Diet was advanced to clears and then low fiber diet which pt tolerated all at time of d/c. -Surgery was consulted and rec should avoid high fibrous diet -patient is feeling well without any abdominal complaints at time of d/c -Ileostomy output starting to increase day of d/c as well Gastroesophageal reflux disease: -Continued famotidine 40 mg p.o. twice daily and Dexilant 60 mg p.o. twice daily Paroxysmal atrial fibrillation: -Not on anticoagulation due to prior GI bleed per last cardiology note. Usually rate controlled without AV miguel angel hanna and was here. -There were periods of ~3 sec pauses on tele monitoring. We consulted cardiology who noted with afib a pause is less concerning until it approached closer to 3.5 sec. Thus, they were ok with normal d/c Hypertension: -Continued lisinopril 5 mg p.o. every morning Hypothyroidism: -TSH 1.19 in April 2020 -Continued levothyroxine 100 mcg p.o. every morning Diffuse cutaneous systemic sclerosis: -Continued usual home dose of mycophenolate 500 mg p.o. every morning, 1000 mg p.o. every afternoon H/O aortic valve replacement: -Bioprosthetic At time of discharge pt with no other acute concerns or complaints. Total Time Total Time Spent Total Time Spent (In Minutes): Less than 30 Discharge Plan Discharge Items Patient Disposition: Home - Self-Care Reason For Visit: SMALL BOWEL OBS Discharge Diagnosis: Small bowel obstruction Activity: Per Instructions section Non-emergency contact: Primary Care Provider Call non-emergency contact if: you have any medication questions, your symptoms worsen and your pain is not controlled Follow-up/Referrals: Robbin Patel MD [Primary Care Provider] - 06/06/20 9:45 am Diet: Low Fiber Addtl Attending Provider Instructions: You were admitted for concerns of abdominal pain, dehydration and generalized body aches. We got CT imaging of your abdomen in the ER and it showed a small partial bowel obstruction. Please follow the below instructions on discharge: Surgery saw and evaluated you during this admission and felt that you were advancing appropriately. On discharge they recommend you avoid a high-fiber rich diet as this can exacerbate your symptoms. Since admission you have had ostomy output, which is encouraging If you have persisting or worsening abdominal symptoms, please return to the ER Please see your PCP within 1 week for normal hospital follow-up with You will continue all meds as previous, no new medications on discharge -There were a couple of periods where we noticed a roughly 3-second pause of your heart rate. We consulted cardiology and it turns out that with A. fib this is less concerning until it is greater than 3.5 seconds, so they were okay with discharge Pending Studies at Discharge: No Stand-Alone Forms: My [facility] [employer], Smoking Cessation Medications and DC Order Prescriptions: Continued cyanocobalamin (vitamin B-12) 1,000 mcg/mL solution 1,000 mcg SQ MONTHLY Qty: 3 RF: 3 levothyroxine 100 mcg tablet 100 mcg PO QAM Qty: 90 RF: 3 cholecalciferol (vitamin D3) 50 mcg (2,000 unit) capsule 2,000 unit PO QAM Qty: 90 RF: 3 finasteride [Proscar] 5 mg tablet 5 mg PO DAILY Qty: 90 RF: 3 silodosin [Rapaflo] 8 mg capsule 8 mg PO HS Qty: 90 RF: 3 (DME) BD Eclipse Luer-Morgan 3 mL 23 x 1" syringe See Rx Instructions .ROUTE .MEDSUPPLY Qty: 3 RF: 3 lisinopril 5 mg tablet 5 mg PO QAM Qty: 90 RF: 3 duloxetine 30 mg capsule,delayed release(DR/EC) 30 mg PO DAILY Qty: 14 RF: 0 pregabalin 75 mg capsule 150 mg PO BID Qty: 360 RF: 0 cephalexin 500 mg capsule 500 mg PO BID 7 Days Qty: 14 RF: 0 hydrocodone-acetaminophen 5-325 mg tablet 1 tab PO DAILY PRN (Reason: pain) Qty: 30 RF: 0 aspirin 81 mg tablet,delayed release (DR/EC) 81 mg PO DAILY RF: 0 famotidine 40 mg tablet 40 mg PO BID RF: 0 mycophenolate mofetil [CellCept] 500 mg tablet 500 - 1,000 mg PO AMPM RF: 0 Dexilant 60 mg capsule,biphase delayed releas 60 mg PO BID RF: 0 Discharge Orders: Discharge Order (Routine); Ordered 05/31/20 Ordered By: Marcelino Vaz Admission Data Admit Date/Time: 05/30/20 11:28 Attending Provider: Maurisio Saavedra Admit Provider: Jc Reina Primary Care Provider: Robbin Patel Other Providers: Jc Reina ; Shan Last ; Kiran Alva Other Interventions: Discharge Summary Assessment (RN) Last Done: 05/31/20 13:20 Supervising Physician Co-Signing Physician Notes I personally examined the patient and verified all avila points of history and exam, discussed case, and agree with decision making with Dr Vaz. Feeling better. Would like to go home. Belly feels better now. Notes that he believes it was mushrooms because they were not digested. Surgery input appreciated. Discussed with cardiology in regards to pauses. Vitals noted, in general he is awake and alert pleasant no distress. HEENT normocephalic atraumatic mucous membranes moist. Breathing unlabored no accessory muscle use good effort. Skin shows no rashes no pallor or icterus. Small bowel obstructionresolved. Stable for home. Low fiber diet. Pausesafter discussion with cardiology, even though they were greater than 3 seconds they were less than 3.5, so given his atrial fibrillation they are less concerning. Stable for home Resident Activity Tracking Resident Involvement: Resident Care Provided Care Provided: Adult Hospital Medicine
--- NOTE | 2020-05-31 14:32 | Cardiology Consultation ---
Date of Consultation May 31, 2020 Assessment & Plan (1) Atrial fibrillation, permanent: -ventricular response adequately controlled without AV active drugs. -does not turn long-term anticoagulation due to GI bleeding on this class of medications. -pauses of less than 3.3 seconds while sleeping are noted. -pauses of 3.5 seconds or greater in a patient with permanent atrial fibrillation may require a pacemaker. (2) Hypertension: -adequate control on lisinopril 5 mg daily (3) H/O aortic valve replacement: -bioprosthetic valve placed in April 2009. -normal function on echocardiogram January 2020. -continue yearly surveillance echocardiograms. History of Present Illness Attending Physician: Maurisio Saavedra DO History of Present Illness Mr. Mendosa is 60-year-old male admitted yesterday with a small-bowel obstruction. The patient demonstrated several pauses on the monitor, and therefore, this consultation was ordered. Of note, the patient is well known to me from the outpatient setting. The patient was in his usual state of health until approximately 2 days prior to presentation. After eating soup for dinner, the patient noted that his abdomen felt bloated and he noticed decreased ostomy output. He eventually presented to the emergency room for further care. While on the monitor, the patient was noted to be in atrial fibrillation with a controlled ventricular response. However, during sleep last evening, the patient demonstrated several pauses up to 3 seconds in length with the longest pause of 3.3 seconds in length. The patient carries a history of permanent atrial fibrillation. He has not required any rate controlling medicines. He does not take long-term anticoagulation as he developed significant GI bleeding while on that class of medicines. The patient had a bioprosthetic valve placed in the aortic position in April of 2009. His most recent echocardiogram was performed in January 2020 and revealed normal left ventricular systolic function, moderate LVH, and a properly functioning bioprosthetic aortic valve. This was unchanged from study performed in July 2018. The patient does carry history of 2 separate cardiac wrists which occurred in January 2019. This was in the setting of ischemic colon, sepsis, acute renal failure, and acute respiratory failure. The patient also has history of a prolonged pause (10 seconds in length) that occurred with anesthesia for a surveillance colonoscopy back in August 2018. Currently, patient is resting comfortably in bed and without complaints. Past medical and surgical history 1. Bioprosthetic aortic valve-April 2009 2. Hypertension 3. Moderate LVH 4. Dilated ascending thoracic aorta 5. Paroxysmal atrial fibrillation 6. RBBB/left anterior hemiblock 7. Hypothyroidism 8. Scleroderma/myositis 9. Hiatal hernia 10. Cabrales's esophagus 11. History of gastric ulcer 12. BPH 13. Subtotal colectomy and ileostomy-January 2019 14. Peyronie disease 15. Lumbar spinal surgery Social history Currently lives with his significant other On disability No tobacco alcohol Family history No early coronary artery disease Review of systems A 10 review systems was negative except for that described above. Allergies Allergy/AdvReac Type Severity Reaction Status Date / Time azathioprine Allergy Intermediate "allergic" Verified 05/30/20 08:52 atropine Allergy Mild allergic-SKIN Verified 05/30/20 08:52 BREAKDOWN diphenoxylate Allergy Mild allergic Verified 05/30/20 08:52 amlodipine [From Lotrel] Allergy Unknown Rash Verified 05/30/20 08:52 benazepril [From Lotrel] Allergy Unknown Rash Verified 05/30/20 08:52 Home Medications Medication Instructions Recorded Confirmed Type aspirin 81 mg tablet,delayed 81 mg PO DAILY 04/06/19 05/30/20 History release cyanocobalamin (vitamin B-12) 1,000 mcg SQ MONTHLY #3 ml 05/10/19 05/30/20 Rx 1,000 mcg/mL injection solution levothyroxine 100 mcg tablet 100 mcg PO QAM #90 tab 05/22/19 05/30/20 Rx cholecalciferol (vitamin D3) 50 2,000 unit PO QAM #90 cap 06/28/19 05/30/20 Rx mcg (2,000 unit) capsule finasteride 5 mg tablet 5 mg PO DAILY #90 tab 09/25/19 05/30/20 Rx silodosin 8 mg capsule 8 mg PO HS #90 cap 09/25/19 05/30/20 Rx syringe with needle 3 mL 23 x 1" #3 ea 11/13/19 04/26/20 Rx lisinopril 5 mg tablet 5 mg PO QAM #90 tab 02/27/20 05/30/20 Rx duloxetine 30 mg capsule,delayed 30 mg PO DAILY #14 cap 03/05/20 05/30/20 Rx release cephalexin 500 mg capsule 500 mg PO BID 7 Days #14 cap 04/26/20 05/30/20 Rx hydrocodone 5 mg-acetaminophen 325 1 tab PO DAILY PRN #30 tab 04/26/20 05/30/20 Rx mg tablet pregabalin 75 mg capsule 150 mg PO BID #360 cap 05/15/20 05/30/20 Rx Dexilant 60 mg PO BID 05/30/20 05/30/20 History famotidine 40 mg PO BID 05/30/20 05/30/20 History mycophenolate mofetil [CellCept] 500 - 1,000 mg PO AMPM 05/30/20 05/30/20 History Patient History Medical History (Updated 05/31/20 @ 14:44 by Kiran Alva MD) Acute kidney injury Anemia Cardiac arrest [facility] hospitalization 01/2019 Elevated prostate specific antigen (PSA) Negative biopsies 2006 and 2012. Prostate MRI (06/16) negative. PSA monitored yearly by urology. Fracture of multiple ribs of both sides Gastric ulcer GI bleeding Hiatal hernia Small, present on EGD (09/13). History of colon polyps Tubular adenoma (2013); Hyperplastic polyp (2018). 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 Followed by urology Premature ventricular contractions Radiculopathy Right bundle branch block with left anterior fascicular block Scleroderma DX - 2009. Second degree type II atrioventricular block Tubular adenoma of colon 1 tubular adenoma on colonoscopy (10/12). Colonoscopy 2018 - Hyperplastic polyp in ascending colon. ? 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 Previously evaluated at [facility]. Followed by cardiology. H/O colectomy 01/2019 - Complicated SBO by cardiac arrest, bowel ischemia requiring colectomy with ileostomy creation. H/O ileostomy created 01/2019 at [place] following subtotal colectomy History of cardioversion ~2008 History of colonoscopy Tubular Adenoma (2013). Hyperplastic Polyp (2019). Next due ? 2023. History of esophagogastroduodenoscopy (EGD) 11/2018 - LA grade D ulcerative esophagitis. Recommend F/U 2021 for surveillance. 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 other Current Living Situation: Spouse Current Living Situation Comment: live in [place] current occupational status: disabled current occupation: previously worked for [employer] other: 2 children from first marriage Feels Safe at Home: Yes Assistive Devices: None Physical Exam Physical Exam: In general this is a well-developed well-nourished white male in no acute distress. HEENT exam is negative. Neck is supple with full carotid upstrokes. There are no carotid bruits. No JVD. There is no thyromegaly. Cardiovascular exam reveals an irregularly irregular rhythm with distant heart sounds. No obvious S3 or murmurs are noted. Chest reveals a well-healed midline scar. Lungs are clear without rales, rhonchi, or wheezes. Abdomen is soft and nontender without bruits. Extremities reveal intact radial artery and posterior tibial pulses bilaterally. There is no peripheral edema. Results & Data ([facility]) Vital Signs (Past 12 Hours) Vital Signs Temp Pulse Pulse Resp BP Pulse Ox 05/31/20 13:20 36.4 C L 72 18 125/76 94 05/31/20 11:58 36.4 C L 72 18 125/76 94 05/31/20 09:20 70 05/31/20 07:29 37.5 C 62 19 121/78 96 05/31/20 05:11 111/72 05/31/20 04:45 130/86 05/31/20 02:50 36.6 C 61 18 123/67 96 Laboratory Results CBC notes hemoglobin of 14.6, hematocrit 42.6, white count 5.3, and platelet count of 020464. Electrolytes note a sodium of 130, potassium 4.2, chloride 112, bicarb 22, BUN 17, creatinine 1.37, glucose of 105. Magnesium level is normal at 2.1. Troponin I levels undetectable less than 0.015. TSH is normal at 1.19. Diagnostic Findings EKG notes atrial fibrillation with a controlled ventricular response. There is a complete right bundle branch block and left anterior hemiblock block. Poor R- wave progression across the anterior precordium. case monitor notes atrial fibrillation with controlled ventricular response. There were several pauses of 3 seconds in length while sleeping last evening. The longest pause was 3.3 seconds in length. PG Care Time/CCT Total # of Minutes Spent Total Time Spent with Patient: Total time spent is greater than 50% in coordination of care (as documented) at patient's floor/unit and/or counseling patient: Coding Level of Care Code 25603 Inpt Consult Level 4 Diagnoses Atrial fibrillation, permanent I48.21 Hypertension I10 H/O aortic valve replacement Z95.2
--- NOTE | 2020-05-31 15:58 | Electrocardiogram Report ---
Test Reason : Blood Pressure : / mmHG Vent. Rate : 083 BPM Atrial Rate : 096 BPM P-R Int : 000 ms QRS Dur : 164 ms QT Int : 412 ms P-R-T Axes : 000 -63 069 degrees QTc Int : 484 ms Atrial fibrillation Right bundle branch block Left anterior fascicular block Bifascicular block Moderate voltage criteria for LVH, may be normal variant Poor R wave progression, consider anterior NE vs. lead placement vs. LVH (masked by fascicular block?) , age undetermined Abnormal ECG When compared with ECG of 05-JUL-2019 12:54, Atrial fibrillation has replaced Sinus rhythm Confirmed by Kiran Alva ([id number]) on 05/31/2020 3:58:18 PM Referred By: REFERRED SELF Confirmed By:Kiran Alva
--- NOTE | 2020-05-31 18:00 | Billing Data ---
Date of Service May 31, 2020 Coding Level of Care Code D/C Day Management <30 mins
== END 2020-05-31 14:31 | disposition home or self-care (01) ==
LOC: ED 07:45 → INTOOBSV 11:28 → 2N 11:28 → SUATTDRO 11:28 → 2N 13:31